=== PATIENT | female | born 1980 | race Caucasian/White ===

== ENCOUNTER 2024-03-24 13:07 | Emergency (ER) | payer OTHER, SELFPAY ==
[2024-03-24 13:13] VITALS: BP 151/98; PULSE 73; RESP 16; TEMP 37; O2SAT 99
--- NOTE | 2024-03-24 13:14 | ED.GENADULT ---
HPI - General Adult General Chief complaint: Dizziness Stated complaint: dizzy Time Seen by Provider: 03/24/24 13:15 Source: patient, RN notes reviewed and old records reviewed Mode of arrival: ambulatory Limitations: no limitations History of Present Illness HPI narrative: 44-year-old female presents to the [facility] with complaints of feeling dizzy, weak and chest tightness. States that started 11 30 when she was sitting at her desk at work. 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 States that she called her , was brought here. Patient had taken Xanax prior to arrival. Patient reports that most of her symptoms have resolved on exam denied any chest pain, shortness of breath. No longer feeling dizzy. Patient denied any nausea or vomiting. Denies any fevers. Denies any URI symptoms Patient with significant history of anxiety panic attacks Onset (ago): hour(s) (2) Related Data Home Medications Medication Instructions Recorded Confirmed alprazolam 0.5 mg tablet (Xanax) 0.5 mg PO QID 03/09/22 03/24/24 fluoxetine 60 mg tablet 60 mg PO DAILY 03/09/22 03/24/24 multivitamin (Daily Multi-Vitamin 1 tablet PO DAILY 03/09/22 03/24/24 tablet) zolpidem 10 mg tablet 10 mg PO QHS PRN Insomnia 03/09/22 03/24/24 brexpiprazole 1 mg tablet (Rexulti) 1 mg PO DAILY 03/24/24 03/24/24 Allergies Allergy/AdvReac Type Severity Reaction Status Date / Time cephalexin [From Keflex] AdvReac Intermediate Diarrhea Verified 03/24/24 13:09 trazodone AdvReac Intermediate Nausea Verified 03/24/24 13:09 tramadol AdvReac Intermediate Gastrointestinal Uncoded 03/24/24 13:09 Upset Review of Systems Review of Systems: All systems reviewed & are unremarkable except as noted in HPI and below Constitutional: Constitutional: Reports as per HPI Eyes: Eyes: Reports no additional eye complaints ENT: Reports system reviewed and no additional complaints, except as documented Cardiovascular: Cardiovascular: Reports no additional cardiovascular complaints, Denies chest pain and Denies dyspnea Respiratory: Respiratory: Reports no additional respiratory complaints, Denies chest congestion, Denies cough and Denies dyspnea Gastrointestinal: Gastrointestinal: Reports no additional gastrointestinal complaints, Denies abdominal pain, Denies nausea and Denies vomiting Musculoskeletal: Musculoskeletal: Reports no additional musculoskeletal complaints Integumentary/Breasts: Skin/Breast: Reports system reviewed and no additional complaints, except as docu Neurologic: Reports as per HPI Psychiatric: Psychiatric: Reports as per HPI Allergic/Immunologic: Allergic/Immunologic: Reports no additional allergic/immunologic complaints PMFSH Past Medical History Medical History Anxiety delivery delivered Thyroid disorder Surgical History Surgical History H/O cone biopsy of cervix H/O discectomy H/O: hysterectomy Family History Family History Mother Thyroid disorder Grandparent Heart disease Social History Social History Smoking status: Never smoker Alcohol intake: never Substance use: never Living arrangements: with family 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 There is no relevant family history pertinent to the patient complaint. Exam Const: General: cooperative, healthy appearing, comfortable, no acute distress, well developed, alert and well nourished Nutritional Appearance: well nourished Orientation/consciousness: patient oriented x3 Limitations: no limitations HE
--- NOTE | 2024-03-24 13:20 | ECG_ITS ---
Test Date: 2024-03-24 13:29:27 Measurements Intervals [place] Rate: 80 P: 48 DC: 153 QRS: -14 QRSD: 100 T: -11 QT: 372 QTc: 431 Interpretive Statements SINUS RHYTHM BORDERLINE R WAVE PROGRESSION, ANTERIOR LEADS BORDERLINE T WAVE ABNORMALITY- ANT/INF LEADS BASELINE ARTIFACT- I, II, III, AVR, AVL, AVF, V3 BORDERLINE ECG No previous ECG available for comparison Electronically Signed On 03-24-2024 13:47:13 CDT by Froilan Kaplan D.O.
[2024-03-24 13:29] LABS: Glucose Point of Care 95 mg/dl (65-105)
== END 2024-03-24 13:48 | disposition home or self-care (01) ==
PROVIDERS: Emergency Provider Nurse Practitioner; PCP Physician Assistant Medical
DX: F41.9 Anxiety disorder, unspecified (principal)
CPT/HCPCS: 82948; 93005; 99213; G0463

== ENCOUNTER 2024-06-26 14:51 | Emergency (ER) | payer OTHER, SELFPAY ==
[2024-06-26 15:04] VITALS: BP 134/87; PULSE 73; RESP 18; TEMP 36.3; O2SAT 99
--- NOTE | 2024-06-26 15:22 | ED_ITS ---
HPI - URI/Sore Throat General Chief Complaint: Upper Respiratory Infection Stated Complaint: [email or web address] symptoms Time Seen by Provider: 06/26/24 15:23 Source: patient, RN notes reviewed and old records reviewed Mode of arrival: ambulatory Limitations: no limitations History of Present Illness HPI Narrative: patient presents with complaints of fever, chills and body aches since yesterday. She does report that 2 days ago she had nausea and vomiting along with some diarrhea, but reports this has subsided and is no longer problematic. She denies any abdominal pain. She has been taking [id number] medications with poor relief. She voices no other concerns or complaints at this time Related Data Home Medications ?Medication ?Instructions ?Recorded ?Confirmed ?Last Taken ?Type alprazolam 0.5 mg tablet (Xanax) 0.5 mg PO QID 03/09/22 03/24/24 Unknown History fluoxetine 60 mg tablet 60 mg PO DAILY 03/09/22 03/24/24 Unknown History multivitamin (Daily Multi-Vitamin 1 tablet PO DAILY 03/09/22 03/24/24 Unknown History tablet) zolpidem 10 mg tablet 10 mg PO QHS PRN Insomnia 03/09/22 03/24/24 Unknown History brexpiprazole 1 mg tablet (Rexulti) 1 mg PO DAILY 03/24/24 03/24/24 Unknown History Allergies Allergy/AdvReac Type Severity Reaction Status Date / Time cephalexin (From Keflex) AdvReac Intermediate Diarrhea Verified 06/26/24 15:05 trazodone AdvReac Intermediate Nausea Verified 06/26/24 15:05 tramadol AdvReac Intermediate Gastrointestinal Uncoded 06/26/24 15:05 Upset Review of Systems Review of Systems: All systems reviewed & are unremarkable except as noted in HPI and below Constitutional: Constitutional: Reports as per HPI, Reports no additional constitutional complaints, Reports body ache(s), Reports chills, Reports excessive sweating and Reports fever(s) ENT: Reports system reviewed and no additional complaints, except as documented and Reports nasal congestion Cardiovascular: Cardiovascular: Reports no additional cardiovascular complaints Respiratory: Respiratory: Reports no additional respiratory complaints Gastrointestinal: Gastrointestinal: Reports no additional gastrointestinal complaints, Reports diarrhea (resolved), Reports nausea (resolved) and Reports vomiting (resolved) PMFSH Past Medical History Medical History Anxiety delivery delivered Thyroid disorder Surgical History Surgical History H/O: hysterectomy H/O cone biopsy of cervix H/O discectomy Family History Family History Mother Thyroid disorder Grandparent Heart disease Social History Social History Smoking status: Never smoker Alcohol intake: never Substance use: never Living arrangements: with family 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 There is no relevant family history pertinent to the patient complaint. Exam 2 Const: General: cooperative, no acute distress, alert and awake Orientation/consciousness: oriented to person, oriented to place and oriented to time HENMT: Head: normal to inspection Resp: Effort & Inspection: normal respiratory effort and able to speak in complete sentences Auscultation: clear to auscultation bilaterally, no crackles, no rales, no rhonchi and no wheezes Cardio: Palpation: normal PMI Rate: regular rate Rhythm: regular rhythm Heart sounds: S1 normal heart sound present and S2 normal heart sound present Neuro: General: oriented to person, oriented to place and oriented to time Cranial nerves: Yes CN's II-XII intact bilaterally Psych: Appearance: grossly normal Thought process: Normal thought process present Insight: Good insight present (Psych) Judgement: Good judgement present (Psych) Course Course Level of Care: Express Care Visit Vital Signs Vital signs: Vital Signs Temperature 97.4 F L 06/26/24 15:04 Pulse Rate 73 06/26/24 15:04 Respiratory Rate 18 06/26/24 15:04 Blood Pressure 134/87 06/26/24 15:04 Pulse Oximetry 99 06/26/24 15:04 Oxygen Delivery Room Air 06/26/24 15:04 Temperature 97.4 F L 06/26/24 15:04 Pulse Rate 73 06/26/24 15:04 Respiratory Rate 18 06/26/24 15:04 Blood Pressure 134/87 06/26/24 15:04 Pulse Oximetry 99 06/26/24 15:04 Oxygen Delivery Room Air 06/26/24 15:04 Reviewed MDM - URI/Sore Throat MDM Narrative Medical decision making narrative: negative COVID, negative flu. GI symptoms resolving. All other symptoms l ikely viral in origin. Symptomatic treatment discussed with patient. Work note provided. Discharge instructions reviewed with patient, as well as provided in writing per nursing staff. The instructions also include specific and strict return/GO TO THE ER as well as f/u information. All questions have been answered, and the patient deny any further questions with discharge and discharge plan. Some parts of this dictation were generated by voice recognition software and may contain typographical and/or grammatical inaccuracies. Differential Diagnosis Differential diagnosis: Likely upper respiratory infection, otitis media and viral infection Medical Records Attestation: I reviewed the patient's medical records. Lab Data Attestation: I reviewed the patient's lab results. Discharge Plan Discharge Clinical Impression: Viral infection Patient Disposition: Home, Self-Care Condition: Stable Instructions: Antibiotic Form, Viral Syndrome (ED) Additional Instructions: Plenty of rest and fluids. [id number] medicines per package instructions to treat your symptoms. Follow-up with primary care provider. Emergency department new or worse symptoms Patient Language: Sudanese Prescriptions: No Action Rexulti 1 mg tablet 1 mg PO DAILY zolpidem 10 mg tablet 10 mg PO QHS PRN (Reason: Insomnia) alprazolam [Xanax] 0.5 mg tablet 0.5 mg PO QID fluoxetine 60 mg tablet 60 mg PO DAILY multivitamin [Daily Multi-Vitamin] Tablet 1 tablet PO DAILY omeprazole 20 mg capsule,delayed release(DR/EC) 20 mg PO DAILY Qty: 90 1RF albuterol sulfate 90 mcg/actuation HFA aerosol inhaler 2 inh inhalation Q4H PRN (Reason: shortness of breath or wheezing) Qty: 8.5 0RF levothyroxine 100 mcg tablet See Rx Instructions .ROUTE .COMPLEX Qty: 90 1RF Dose Instruction: Take 1 tablet by mouth once daily Rx Instructions: Take 1 tablet by mouth once daily Follow-up/Referrals: Rachel Macias PA-C [Primary Care Provider] - 2 Weeks Stand Alone Forms: Work/School Release IP Time of Disposition: 15:38
[2024-06-26 15:24] LABS: EDCOVIDSCREEN Negative (Negative); EDINFLUASCREEN Negative (Negative); EDINFLUBSCREEN Negative (Negative)
== END 2024-06-26 15:40 | disposition home or self-care (01) ==
PROVIDERS: Emergency Provider Nurse Practitioner Family; PCP Physician Assistant Medical
DX: B34.9 Viral infection, unspecified (principal); Z20.822 Contact with and (suspected) exposure to COVID-19; F41.9 Anxiety disorder, unspecified
CPT/HCPCS: 87426; 87804; 99211; 99212; G0463

== ENCOUNTER 2024-11-28 11:43 | Emergency (ER) | payer OTHER, SELFPAY ==
--- OUTSIDE RECORDS SUMMARY | 2024-11-28 11:45 | XMS_ITS | Encounter Summary ---
Author Organization [facility] Address [address] [place] [address] Care Team Providers Care Personal Care Attendant Name Role Phone Unavailable Primary Care Provider Unavailabl e Encounter Details Date Type Department Care Team (Late st Contact Info) Description 11/16/2021 Lab Requisition [facility] [address] [place] [address] Izaiah Richter MD [address] [place] [address] Social History Tobacco Use Types Packs/Day Years Used Date Smoking Tobacco: Never Assessed Comments Unknown Sex and Gender Information Value Date Recorded Sex Assigned at Not on file Legal Sex Female 5:53 AM CDT Gender Identity Not on file Sexual Orientation Not on file documented as of this encounter Plan of Treatment Not on file documented as of this encounter Procedures Procedure Name Priority Date/Time Associated Diagnosis Comments DERMATOPATHOLOGY Routine 11/14/2021 12:0 0 AM CDT documented in this encounter Results * DERMATOPATHOLOGY (11/14/2021 12:00 AM CDT) Case Report Dermatopathology Report Case: [id number] Authorizing Provider: Izaiah Richter MD Collected: 11/14/2021 12:00 AM Ordering Location: [facility] Received: 11/16/2021 06:06 AM Pathologist: Romi Ordaz MD Specimen: Skin, right nasal tip 2 2:49 PM CDT DERMATOPATHOLOGY LABORATORY Final Diagnosis Specimen A. SKIN, right nasal tip: ANGIOFIBROMA (FIBROUS PAPULE) (D21.0) (see microscopic description) 2 2:49 PM CDT DERMATOPATHOLOGY LABORATORY at 1449 CDT Clinical History BCCA vs fibrous papule. Path # [id number]. 2 2:49 PM CDT DERMATOPATHOLOGY LABORATORY Gross Description Specimen A: Received is one formalin filled container labeled with the patient's name and designated right nasal tip. The specimen consists of a shave biopsy measuring [id number]. Jar 0. 2:49 PM CDT DERMATOPATHOLOGY LABORATORY Microscopic Description Specimen A. SKIN, right nasal tip: This dome-shaped lesion contains dilated blood vessels, coarse collagen bundles, and stellate fibroblasts. Additional deeper sections were obtained and reviewed. 2 2:49 PM CDT DERMATOPATHOLOGY LABORATORY Disclaimer An external and internal positive and negative controls are appropriate for the histochemical, immunohistochemical and immunofluorescence stain(s) in this case (if any), except where stated explicitly. The performance characteristics of the stain(s) cited in this report were developed and its performance characteristic determined by the Dermatopathology Laboratory at [facility], directed by Dr. Kwabena Rubi. These tests need not be, and therefore are not, approved by the [place] Food and Drug Administration. The tests are used for clinical purposes. Billing Codes Specimen Charges Stain Charges 33390 1 2 2:49 PM CDT DERMATOPATHOLOGY LABORATORY Embedded Images 2 2:49 PM CDT DERMATOPATHOLOGY LABORATORY Pathology/Cytolog y TISSUE SPECIMEN FROM SKIN / Unknown 11/14/2021 11/16/2021 6:06 AM CDT us Izaiah Richter MD LAB - PATHOLOGY/CYTOLOGY ORDER SHADY Final Result DERMATOPATHOLOGY LABORATORY [facility] - Department of Dermatology [address] [place] [address], [facility] [phone] documented in this encounter Visit Diagnoses Not on filedocumented in this encounter
--- OUTSIDE RECORDS SUMMARY | 2024-11-28 11:45 | XMS_ITS | Encounter Summary ---
Author Organization [facility] Address [address] [place] [address] Care Team Providers Care Insurance Producer Name Role Phone Rodger Lee MD Primary Care Provider Encounter Details Date Type Department Care Team (Late st Contact Info) Description 10/02/2008 Outpatient Historical [facility] Jarett Mcmahon MD 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 [id number] documented as of this encounter Procedures Procedure Name Priority Date/Time Associated Diagnosis Comments TYPE AND SCREEN Routine 10/02/2008 4:15 AM CDT HIV RAPID SCREEN Stat 10/02/2008 4:10 AM CDT CBC WITH DIFFERENTIAL Stat 10/02/2008 4:10 AM CDT documented in this encounter Results * TYPE AND SCREEN (10/02/2008 4:15 AM CDT) HISTORY CHECK No Historical ABO/Rh [facility] ABO/RH TYPE O Positive [facility] SPEC[facility]EN LIFE 3 days from drawdate [facility] ANTIBODY SCREEN Negative [facility] Blood specimen (specimen) 10/02/2008 4:15 AM CDT us Jarett Mcmahon MD BLOOD BANK ORDERABLES Israel bryan Performing Organization Address [facility] Phone Number INTERFACE SYSTEM Refer to clinic/hospital department [facility] CLIA# [id number] [address] [place] [address] * HIV RAPID SCREEN (10/02/2008 4:10 AM CDT) RAPID HIV SCREEN Nonreactive Nonreactive [facility] Comment:Results called to Oleg garza at 10/02/08 08:37 and read back verified. Blood specimen (specimen) 10/02/2008 4:10 AM CDT 10/02/2008 7:56 AM CDT Narrative INTERFACE SYSTEM - 10/02/2008 8:37 AM CDT blood in lab us Jarett Mcmahon MD CHEMISTRY ORDERABLES Radha l Result Performing Organization Address [facility] [[email or web address]] de Phone Number INTERFACE SYSTEM Refer to clinic/hospital department [facility] CLIA# [id number] [address] [place] [address] * (ABNORMAL) CBC WITH DIFFERENTIAL (10/02/2008 4:10 AM CDT) MCV 87.4 82.0 - 99.0 fL [facility] PLATELETS 170 140 - 350 K/uL [facility] HEMOGLOBIN 11.5(L) 11.8 - 14.8 g/dL [facility] RDW 14.1 11.5 - 14.5 % [facility] WBC 11.3(H) 4.0 - 9.8 K/uL [facility] MCH 29.0 27.2 - 32.6 pg [facility] MPV 11.8 9.3 - 12.4 fL [facility] HEMATOCRIT 34.7(L) 35.5 - 44.0 % [facility] RDW-STDEV 44.2 37.1 - 48.7 fL [facility] RBC 3.97 3.90 - 4.90 M/uL [facility] MCHC 33.1 31.5 - 35.5 % [facility] EOSINOPHILS 1 0 - 7 % [facility] EOSINOPHIL ABSOLUTE 0.06 0.00 - 0.70 K/uL [facility] LYMPHOCYTES 19 16 - 45 % [facility] LYMPHOCYTE ABSOLUTE 2.15 0.70 - 4.50 K/uL [facility] BASOPHILS 0 0 - 2 % [facility] BASOPHILS ABSOLUTE 0.02 0.00 - 0.20 K/uL [facility] MONOCYTES 5 3 - 13 % [facility] MONOCYTE ABSOLUTE 0.51 0.10 - 1.30 K/uL [facility] NEUTROPHILS 76(H) 45 - 70 % [facility] NEUTROPHIL ABSOLUTE 8.52(H) 1.90 - 7.00 K/uL [facility] Blood specimen (specimen) 10/02/2008 4:10 AM CDT 10/02/2008 4:23 AM CDT us Jarett Mcmahon MD HEMATOLOGY ORDERABLES Israel bryan INTERFACE SYSTEM Refer to clinic/hospital department [facility] CLIA# [id number] [address] [place] [address] documented in this encounter Visit Diagnoses Not on filedocumented in this encounter Care Teams Insurance Producer Relationship Specialty Start Date End Date Rodger Lee MD [address] [place] [phone] PCP - General Internal Medicine 06/15/16 documented as of this encounter
--- OUTSIDE RECORDS SUMMARY | 2024-11-28 11:45 | XMS_ITS | Encounter Summary ---
Author Organization [facility] Address [address] [place] [address] Care Team Providers Care Straightening Machine Feeder Name Role Phone Rodger Lee MD Primary Care Provider Encounter Details Date Type Department Care Team (Latest Contact Info) Description 08/12/2008 Outpatient Historical [facility] Jarett Mcmahon MD 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 [address] documented as of this encounter Procedures Procedure Name Priority Date/Time Associated Diagnosis Comments US BIOPHYSICAL PROF W NST Timed Study 09/08/2008 11:26 AM CDT US OB LTD 1 OR MORE FETUSES Timed Study 09/08/2008 11:26 AM CDT US OB LTD 1 OR MORE FETUSES Timed Study 08/12/2008 10:24 AM LEAD FURNACE OPERATOR documented in this encounter Results * US OB LTD 1 OR MORE FETUSES (09/08/2008 11:26 AM CDT) Anatomical Region Laterality Modality Pelvis Other Narrative 09/08/2008 11:26 AM CDT FINAL - Order Information Only Procedure Note Frank Delgado, MEREDITH - 07/13/2015 FINAL - Order Information Only us Jarett Mcmahon MD US ORDERABLES Final Res ult * US BIOPHYSICAL PROFILE (09/08/2008 11:26 AM CDT) Anatomical Region Laterality Modality Pelvis Other Narrative 09/08/2008 11:26 AM CDT FINAL - Order Information Only Procedure Note Frank Delgado, RN - 07/13/2015 FINAL - Order Information Only us Jarett Mcmahon MD US ORDERABLES Final Res ult * US OB LTD 1 OR MORE FETUSES (08/12/2008 10:24 AM LEAD FURNACE OPERATOR) Anatomical Region Laterality Modality Pelvis Other Narrative 08/12/2008 10:24 AM LEAD FURNACE OPERATOR Results in [employer] Procedure Note 12/31/2008 Results in [employer] us Jarett Mcmahon MD US ORDERABLES Final Res ult documented in this encounter Visit Diagnoses Diagnosis Other specified complication, antepartum(646.83) Other specified complication, antepartum Unspecified hypothyroidism documented in this encounter Care Teams Straightening Machine Feeder Relationship Specialty Start Date End Date Rodger Lee MD [address] [place] [phone] PCP - General Internal Medicine 06/15/16 documented as of this encounter
--- OUTSIDE RECORDS SUMMARY | 2024-11-28 11:45 | XMS_ITS | Encounter Summary ---
Author Organization [facility] Address [address] [place] [address] Care Team Providers Care Rivet Flunky Name Role Phone Rodger Croft MD Primary Care Provider [phone] Encounter Details Date Type Department Care Team (Late st Contact Info) Description 01/16/2009 Outpatient Historical [facility] Er, Authorized P NO ADDRESS ON FILE Gage Monk MD NO ADDRESS ON FILE Social History Tobacco Use Types Packs/Day Years Used Date Smoking Tobacco: Never Assessed Comments Unknown Sex and Gender Information Value Date Recorded Sex Assigned at Not on file Legal Sex Female 4:56 AM CLINICAL REHAB LIAISON Gender Identity Not on file Sexual Orientation Not on file documented as of this encounter Plan of Treatment Upcoming Encounters Date Type Department Care Team (Late st Contact Info) Description 01/14/2025 2:30 PM CDT 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 [address] documented as of this encounter Procedures Procedure Name Priority Date/Time Associated Diagnosis Comments XR CHEST PA AND LATERAL 2 VW Routine 01/16/2009 8:10 PM CDT XR CHEST PA AND LATERAL 2 VW Routine 01/16/2009 8:10 PM CDT XR CHEST PA AND LATERAL 2 VW Routine 01/16/2009 8:10 PM CDT BLOOD CULTURE Stat 01/16/2009 8:10 PM CDT BLOOD CULTURE Stat 01/16/2009 8:10 PM CDT ED HOLD Stat 01/16/2009 7:29 PM CDT CBC WITH DIFFERENTIAL Stat 01/16/2009 7:29 PM CDT C-REACTIVE PROTEIN Stat 01/16/2009 7: 29 PM CDT COMPREHENSIVE METABOLIC PANEL Stat 01/16/2009 7:29 PM CDT documented in this encounter Results * BLOOD CULTURE (01/16/2009 8:10 PM CDT) PRELIMINARY REPORT No growth to date. Culture in progress [facility] FINAL REPORT No growth 5 days [facility] Blood specimen (specimen) 01/16/2009 8:10 PM CDT 01/16/2009 8:15 PM CDT Narrative [facility] - 01/22/2009 12:02 PM CDT blood inlab Miki Sheffield MD MICROBIOLOGY - GENERAL ORDERABL ES Final Result [facility] CLIA# [id number] [address] [place] [address] * BLOOD CULTURE (01/16/2009 8:10 PM CDT) PRELIMINARY REPORT No growth to date. Culture in progress [facility] FINAL REPORT No growth 5 days [facility] Blood specimen (specimen) 01/16/2009 8:10 PM CDT 01/16/2009 8:15 PM CDT us Miki Sheffield MD MICROBIOLOGY - GENERAL ORDERABL ES Final Result [facility] CLIA# [id number] [address] [place] [address] * XR CHEST PA AND LATERAL (01/16/2009 8:10 PM CDT) Anatomical Region Laterality Modality Chest Other 01/16/2009 8:10 PM CDT Narrative 01/16/2009 9:22 PM CDT [facility] [address] [place], [place] [address] Admit Date: 01/16/2009 SELWYN DEE Sex: F Admit Prov: ER, AUTHORIZED P Date: 1980 Primary Care Prov: CROFT RODGER L CMRN: [id number] Room: ER-A N: [id number] IMAGING SERVICES Ordering Prov: N/A Accession Number: [id number] Interpretation TWO-VIEW CHEST, 01/16/2009 HISTORY: Fever, postoperative. FINDINGS: There are no comparison films. The lungs are fully inflated and clear. There are no effusions. The heart and mediastinum are within normal limits. IMPRESSION: Negative heart and lungs. . Dictated by: PRATIMA ROMERO 01/16/2009 20:19 Electronically signed by: PRATIMA ROMERO 01/16/2009 21:21 Transcribed: 01/16/2009 20:22 SJ Procedure Note Pratima Romero - 01/16/2009 [facility] [address] [place], [place] [address] Admit Date: 01/16/2009 SELWYN DEE Sex: F Admit Prov: ER, AUTHORIZED P Date: 1980 Primary Care Prov: LANG RODGER L CMRN: [id number] Room: ER-A SSN: [id number] IMAGING SERVICES Ordering Prov: N/A Interpretation TWO-VIEW CHEST, 01/16/2009 HISTORY: Fever, postoperative. FINDINGS: There are no comparison films. The lungs are fullyinflated and clear. There are no effusions. The heart and mediastinum are withinnormal limits. IMPRESSION: Negative heart and lungs. . Dictated by: PRATIMA ROMERO 01/16/2009 20:19 Electronically signed by: PRATIMA ROMERO 01/16/2009 21:21 Transcribed: 01/16/2009 20:22 SJ us Miki Sheffield MD DIAGNOSTIC IMAGING ORDERABLES F inal Result * XR CHEST PA AND LATERAL (01/16/2009 8:10 PM CDT) Anatomical Region Laterality Modality Chest Other 01/16/2009 8:10 PM CDT Impressions 01/16/2009 8:23 PM CDT : Negative heart and lungs. . PRELIMINARY REPORT - Pending Final Review Dictated by: PRATIMA ROMERO 01/16/2009 20:19 Transcribed: 01/16/2009 20:22 SJ Narrative 01/16/2009 8:23 PM CDT FINAL - Order Information Only [address] [address] Admit Date: 01/16/2009 SELWYN DEE Sex: F Admit Prov: ER, AUTHORIZED P Date: 1980 Primary Care Prov: RODGER CROFT CMRN: [id number] Room: ER-A SSN: [id number] IMAGING SERVICES Ordering Prov: N/A Accession Number: [id number] Interpretation TWO-VIEW CHEST, 01/16/2009 HISTORY: Fever, postoperative. FINDINGS: There are no comparison films. The lungs are fully inflated and clear. There are no effusions. The heart and mediastinum are within normal limits. Procedure Note Frank Delgado RN - 07/13/2015 FINAL - Order Information Only [address], [place] [address] Admit Date: 01/16/2009 SELWYN DEE Sex: F Admit Prov: ER, BABATUNDE P Date: 1980 Primary Care Prov: RODGER CROFT CMRN: [id number] Room: [facility] SSN: [id number] IMAGING SERVICES Ordering Prov: N/A Interpretation TWO-VIEW CHEST, 01/16/2009 HISTORY: Fever, postoperative. FINDINGS: There are no comparison films. The lungs are fullyinflated and clear. There are no effusions. The heart and mediastinum are withinnormal limits. IMPRESSION: Negative heart and lungs. . PRELIMINARY REPORT - Pending Final Review Dictated by: PRATIMA ROMERO 01/16/2009 20:19 Transcribed: 01/16/2009 20:22 SJ Miki Sheffield MD DIAGNOSTIC IMAGING ORDERABLES F inal Result * XR CHEST PA AND LATERAL (01/16/2009 8:10 PM CDT) Anatomical Region Laterality Modality Chest Other 01/16/2009 8:10 PM CDT Narrative 01/16/2009 8:17 PM CDT FINAL - Order Information Only Procedure Note Frank Delgado, RN - 07/13/2015 FINAL - Order Information Only Miki Sheffield MD DIAGNOSTIC IMAGING ORDERABLES F inal Result * (ABNORMAL) C-REACTIVE PROTEIN (01/16/2009 7:29 PM CDT) CRP 3.1(H) 0.0 - 0.8 mg/dL [facility] 01/16/2009 7:29 PM CDT 01/16/2009 8:18 PM CDT Narrative [facility] - 01/16/2009 8:44 PM CDT blood in lab Miki Sheffield MD CHEMISTRY ORDERABLES Final Resu lt [facility] CLIA# [id number] [address] [place] [place] [address] * COMPREHENSIVE METABOLIC PANEL (01/16/2009 7:29 PM CDT) CALCIUM 9.1 8.6 - 10.2 mg/dL [facility] ALBUMIN 4.3 3.4 - 4.8 g/dL [facility] CHLORIDE 103 96 - 108 mmol/L [facility] CREATININE 0.83 0.51 - 0.95 mg/dL [facility] ALT 20 0 - 31 U/L [facility] SODIUM 141 135 - 145 mmol/L [facility] ALKALINE PHOSPHATASE 57 35 - 104 U/L [facility] CO2 27 22 - 30 mmol/L [facility] BILIRUBIN TOTAL 0.5 0.2 - 1.0 mg/dL [facility] POTASSIUM 4.0 3.5 - 4.9 mmol/L [facility] TOTAL PROTEIN 7.6 6.3 - 8.6 g/dL [facility] GLUCOSE 87 65 - 99 mg/dL [facility] AST 19 12 - 32 U/L [facility] BUN 10 6 - 20 mg/dL [facility] GFR, >60 >=60 mL/min/1.7 sq meter [facility] GFR >60 >=60 mL/min/1.7 sq meter [facility] Comment: Modification of Diet in Renal Disease (MDRD) study formula. Estimated GFR rate interpretative information for both Americans and non- Americans is available on the [facility] Intranet at: [email or web address] Select: Lab Policies and Procedures Select: Reference Ranges - GFR 01/16/2009 7:29 PM CDT 01/16/2009 7:47 PM CDT us Miki Sheffield MD CHEMISTRY ORDERABLES Edited [facility] CLIA# [id number] [address] [place] [address] * (ABNORMAL) CBC WITH DIFFERENTIAL (01/16/2009 7:29 PM CDT) WBC 7.1 4.0 - 9.8 K/uL [facility] MCH 28.3 27.2 - 32.6 pg [facility] MPV 11.4 9.3 - 12.4 fL [facility] HEMATOCRIT 33.7(L) 35.5 - 44.0 % [facility] RDW-STDEV 39.9 37.1 - 48.7 fL [facility] RBC 4.00 3.90 - 4.90 M/uL [facility] MCHC 33.5 31.5 - 35.5 % [facility] MCV 84.3 82.0 - 99.0 fL [facility] PLATELETS 237 140 - 350 K/uL [facility] HEMOGLOBIN 11.3(L) 11.8 - 14.8 g/dL [facility] RDW 13.2 11.5 - 14.5 % [facility] LYMPHOCYTES 25 16 - 45 % [facility] LYMPHOCYTE ABSOLUTE 1.81 0.70 - 4.50 K/uL [facility] BASOPHILS 0 0 - 2 % [facility] BASOPHILS ABSOLUTE 0.02 0.00 - 0.20 K/uL [facility] MONOCYTES 5 3 - 13 % [facility] MONOCYTE ABSOLUTE 0.33 0.10 - 1.30 K/uL [facility] NEUTROPHILS 68 45 - 70 % [facility] NEUTROPHIL ABSOLUTE 4.84 1.90 - 7.00 K/uL [facility] EOSINOPHILS 2 0 - 7 % [facility] EOSINOPHIL ABSOLUTE 0.13 0.00 - 0.70 K/uL [facility] 01/16/2009 7:29 PM CDT 01/16/2009 7:47 PM CDT Miki Sheffield MD HEMATOLOGY ORDERABLES Edited Performing Organization Address [facility]/ZIP Co de Phone Number [facility] CLIA# [id number] [address] [place] [address] * ED HOLD (01/16/2009 7:29 PM CDT) SPECIMEN HOLD, BLOOD 7 days [facility] Blood specimen (specimen) 01/16/2009 7:29 PM CDT 01/16/2009 7:47 PM CDT us Miki Sheffield MD CHEMISTRY ORDERABLES Final Resu lt Performing Organization Address [facility] Co de Phone Number [facility] CLIA# [id number] [address] [place] [address] documented in this encounter Visit Diagnoses Not on filedocumented in this encounter Care Teams Rivet Flunky Relationship Specialty Start Date End Date Rodger Croft MD [address] [place], [place] [id number] PCP - General Internal Medicine 06/15/16 documented as of this encounter
--- OUTSIDE RECORDS SUMMARY | 2024-11-28 11:45 | XMS_ITS | Clinical Summary ---
Author Organization [facility] Address [address] [place] [address] Care Team Providers Care Mental Health Assistant Name Role Phone Unavailable Primary Care Provider Unavailabl e Source Comments [facility],non-owned Affiliates and Associated Physician Practices is amultiple site organization consisting of ambulatory clinics and hospital sitesin [place], [place], [place] and [place]. This disclosure is being madepursuant to the Care Everywhere program and may not contain all information available regarding this patient. Last updated 18.[facility] Social History Tobacco Use Types Packs/Day Years Used Date Smoking Tobacco: Never Assessed Comments Unknown Sex and Gender Information Value Date Recorded Sex Assigned at Not on file Legal Sex Female 5:53 AM CDT Gender Identity Not on file Sexual Orientation Not on file Plan of Treatment Health Maintenance Due Date Last Done Comments LIPID TESTING 1980 MAMMOGRAM 1980 HIV SCREENING 02/10/1995 HEPATITIS C SCREENING 02/06/1998 DTAP/TDAP/TD VACCINES (1 - Tdap) 02/10/1999 HEPATITIS B VACCINE (1 of 3 - 19+ 3-dose series) 02/10/1999 COVID-19 VACCINE ( - 2023-2 5 season) 2024 DEPRESSION SCREENING 06/25/2024 INFLUENZA VACCINE (Season Ended) 2025 ZOSTER VACCINE (1 of 2) 02/10/2030 HIB VACCINE Aged Out No longer eligi ble based on patient's age to complete this topic HPV VACCINE Aged Out No longer eligi ble based on patient's age to complete this topic MENINGOCOCCAL (Group B) VACC INE SHARED DECISION-MAKING Aged Out No longer eligibl e based on patient's age to complete this topic MENINGOCOCCAL GROUPS A/C/Y/W VACCINE Aged Out No longer eligible b ased on patient's age to complete this topic PNEUMOCOCCAL VACCINE Aged Out No long er eligible based on patient's age to complete this topic Insurance
--- OUTSIDE RECORDS SUMMARY | 2024-11-28 11:45 | XMS_ITS | Encounter Summary ---
Author Organization [facility] Address 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 [address] documented as of this encounter Procedures Procedure Name Priority Date/Time Associated Diagnosis Comments URINALYSIS WITH REFLEX CULTURE Routine 06/19/2005 10:57 PM ENVIRONMENTAL SAFETY SPECIALIST CBC WITH DIFFERENTIAL Routine 06/19/2005 10:57 PM ENVIRONMENTAL SAFETY SPECIALIST CBC WITH DIFFERENTIAL Routine 06/19/2005 10:57 PM ENVIRONMENTAL SAFETY SPECIALIST URINALYSIS W/REFLEX MICROSCOPIC Routine 06/19/2005 10:57 PM ENVIRONMENTAL SAFETY SPECIALIST URIC ACID Routine 06/19/2005 10:57 PM ENVIRONMENTAL SAFETY SPECIALIST AST Routine 06/19/2005 10:57 PM ENVIRONMENTAL SAFETY SPECIALIST LACTATE DEHYDROGENASE Routine 06/19/2005 10:57 PM ENVIRONMENTAL SAFETY SPECIALIST documented in this encounter Results * (ABNORMAL) URINALYSIS (06/19/2005 10:57 PM ENVIRONMENTAL SAFETY SPECIALIST) COLOR UA Yellow INTERFACE SYSTEM CLARITY UA Slt. Cloudy(A) Clear INTERFACE SYSTEM SPECIFIC GRAVITY UA 1.010 1.001 - 1.035 INTERFACE SYSTEM PH UA 7.0 5.0 - 8.0 INTERFACE SYSTEM LEUKOCYTE ESTERASE UA 3+(A) Negative INTERFACE SYSTEM NITRITE UA Negative Negative INTERFACE SYSTEM PROTEIN UA Negative Negative INTERFACE SYSTEM GLUCOSE UA Negative Negative INTERFACE SYSTEM KETONES UA Negative Negative INTERFACE SYSTEM UROBILINOGEN UA <1 <=1 mg/dL INTE RFACE SYSTEM BILIRUBIN UA Negative Negative INTERFA CE SYSTEM BLOOD UA Negative Negative INTERFACE SYSTEM WBC UA 12(H) 0 - 5 /HPF INTERFACE SYSTEM RBC UA 1 0 - 4 /HPF INTERFACE SYSTEM EPITHELIAL CELLS, URINE Many /HPF INTERFACE SYSTEM 06/19/2005 10:5 7 PM ENVIRONMENTAL SAFETY SPECIALIST us Renata Andre MD URINE ORDERABLES Final R esult INTERFACE SYSTEM Refer to clinic/hospital department * URINALYSIS WITH REFLEX CULTURE (06/19/2005 10:57 PM ENVIRONMENTAL SAFETY SPECIALIST) URINE CULTURE ORDER Culture ordered INTERFACE SYSTEM Comment: Criteria for a reflex culture include one or more of the following: Abn ormal nitrite, leukocyte esterase, WBCs or RBCs. Lack of qualifying criteria does not exclude the possiblity of a urinary tract infection. Dilute urine, drug interference, etc. may decrease the sensitivity of the criteria analytes. 06/19/2005 10:5 7 PM ENVIRONMENTAL SAFETY SPECIALIST Renata Andre MD URINE ORDERABLES Final R esult Performing Organization Address City/[facility] Co de Phone Number INTERFACE SYSTEM Refer to clinic/hospital department * (ABNORMAL) CBC WITH DIFFERENTIAL (06/19/2005 10:57 PM ENVIRONMENTAL SAFETY SPECIALIST) NEUTROPHILS 74(H) 45 - 70 % INTERFAC E SYSTEM LYMPHOCYTES 22 16 - 45 % INTERFAC E SYSTEM MONOCYTES 4 3 - 13 % INTERFACE SYSTEM EOSINOPHILS 1 0 - 7 % INTERFAC E SYSTEM BASOPHILS 0 0 - 2 % INTERFACE SYSTEM NEUTROPHIL ABSOLUTE 9.11(H) 1.90 - 7.00 K/uL INTERFACE SYSTEM LYMPHOCYTE ABSOLUTE 2.66 0.70 - 4.50 K/uL INTERFACE SYSTEM MONOCYTE ABSOLUTE 0.46 0.10 - 1.30 K/uL INTERFACE SYSTEM EOSINOPHIL ABSOLUTE 0.06 0.00 - 0.70 K/uL INTERFACE SYSTEM BASOPHILS ABSOLUTE 0.02 0.00 - 0.20 K/uL INTERFACE SYSTEM 06/19/2005 10:5 7 PM ENVIRONMENTAL SAFETY SPECIALIST Renata Andre MD HEMATOLOGY ORDERABLES Fi nal Result Performing Organization Address [facility] de Phone Number INTERFACE SYSTEM Refer to clinic/hospital department * (ABNORMAL) CBC WITH DIFFERENTIAL (06/19/2005 10:57 PM ENVIRONMENTAL SAFETY SPECIALIST) WBC 12.3(H) 4.0 - 9.8 K/uL INTERFACE SYSTEM RBC 3.95 3.90 - 4.90 M/uL INTERFACE SYSTEM HEMOGLOBIN 11.5(L) 11.8 - 14.8 g/dL INTERFACE SYSTEM HEMATOCRIT 34.7(L) 35.5 - 44.0 % INTERFACE SYSTEM MCV 87.8 82.0 - 99.0 fL INTERFACE SYSTEM MCH 29.1 27.2 - 32.6 pg INTERFACE SYSTEM MCHC 33.1 31.5 - 35.5 % INTERFACE SYSTEM RDW 14.2 11.5 - 14.5 % INTERFACE SYSTEM RDW-STDEV 45.6 37.1 - 48.7 fL INTERFACE SYSTEM PLATELETS 194 140 - 350 K/uL INTERFACE SYSTEM MPV 12.0 9.3 - 12.4 fL INTERFACE SYSTEM 06/19/2005 10:5 7 PM ENVIRONMENTAL SAFETY SPECIALIST Renata Andre MD HEMATOLOGY ORDERABLES Fi nal Result INTERFACE SYSTEM Refer to clinic/hospital department * AST (06/19/2005 10:57 PM ENVIRONMENTAL SAFETY SPECIALIST) AST 17 12 - 32 U/L INTERFAC E SYSTEM 06/19/2005 10:5 7 PM ENVIRONMENTAL SAFETY SPECIALIST us Renata Andre MD CHEMISTRY ORDERABLES Fin al Result Performing Organization Address City/[facility] Co de Phone Number INTERFACE SYSTEM Refer to clinic/hospital department * LACTATE DEHYDROGENASE (06/19/2005 10:57 PM ENVIRONMENTAL SAFETY SPECIALIST) LD (LACTATE DEHYDROGENASE) 196 135 - 214 U/L INTERFACE SYSTEM 06/19/2005 10:5 7 PM ENVIRONMENTAL SAFETY SPECIALIST Renata Andre MD CHEMISTRY ORDERABLES Fin al Result Performing Organization Address City/[facility] Co de Phone Number INTERFACE SYSTEM Refer to clinic/hospital department * URIC ACID (06/19/2005 10:57 PM ENVIRONMENTAL SAFETY SPECIALIST) URIC ACID 5.6 2.3 - 6.6 mg/dL INTERFACE SYSTEM 06/19/2005 10:5 7 PM ENVIRONMENTAL SAFETY SPECIALIST Renata Andre MD CHEMISTRY ORDERABLES Fin al Result Performing Organization Address City/[facility] Co de Phone Number INTERFACE SYSTEM Refer to clinic/hospital department documented in this encounter Visit Diagnoses Diagnosis Other current maternal conditions classifiable elsewhere, antepartum- Primary documented in this encounter Care Teams Cooling Pipe Inspector Relationship Specialty Start Date End Date Rodger Lee MD [address] [place] [phone] PCP - General Internal Medicine 06/15/16 documented as of this encounter
--- OUTSIDE RECORDS SUMMARY | 2024-11-28 11:45 | XMS_ITS | Clinical Summary ---
Author Organization [email or web address] 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 Active FLUoxetine (PROzac) 20 mg capsule 8 Active zolpidem (AMBIEN) 10 mg tablet TAKE 1 TABLET BY MOUTH EVERY NIGHT AT BEDTIME NEEDED FOR INSOMNIA Active ALPRAZolam (XANAX) 1 mg tablet TAKE 1 TABLET BY MOUTH 4 TIMES DAILY NEEDED FOR ANXIETY Active omeprazole (PriLOSEC) 20 mg Capsule, Delayed Release(E.C.) Take 20 mg by mouth daily. 3 Active multivitamin (DAILY-RANJAN) tablet Take 1 Tablet by mouth daily. Active oxyCODONE (ROXICODONE) 5 mg tabletIndications:E ndometriosis Take 1 Tablet (5 mg) by mouth every 4 hours as needed for Pain, Severe. Max Daily Amount: 30 mg 20 Tablet 4 Active Rexulti 1 mg Tablet 04/01/20 2 4 Active cyclobenzaprine (FLEXERIL) 10 mg tablet Take 1 Tablet (10 mg) by mouth 3 times daily as needed for Spasm or Pain. 30 Tablet 1 Active Active Problems Problem Noted Date Diagnosed Date Mixed incontinence 09/12/2023 Resolved Problems Problem Noted Date Diagnosed Date Resolved Date History of cervical cancer 06/21/2017 0 08/01/2021 Encounters Date Type Department Care Team Description 11/25/2024 External Device Data ST[facility] ABSTRACTION Provider, Abstract 11/13/2024 External Device Data [facility] ABSTRACTION Provider, Abstract 11/12/2024 External Device Data [facility] ABSTRACTION Provider, Abstract 11/11/2024 External Device Data [facility] ABSTRACTION Provider, Abstract 09/10/2024 External Device Data [facility] ABSTRACTION Provider, Abstract 09/02/2024 External Device Data [facility] ABSTRACTION Provider, Abstract 09/02/2024 External Device Data [facility] ABSTRACTION Provider, Abstract 08/30/2024 External Device Data [facility] ABSTRACTION Provider, Abstract 08/29/2024 External Device Data [facility] ABSTRACTION Provider, Abstract from Last 3 Months Family History Medical History Relation Name Comments Healthy Daughter Healthy Father Healthy Mother Healthy Sister Relation Name Status Comments Daughter Alive 2 daughters Father Alive Mother Alive Sister Alive 2 sisters Social History Tobacco Use Types Packs/Day Years Used Date Smoking Tobacco: Never Smokeless Tobacco: Never Tobacco Cessation:Counseling Given: Not Answered Alcohol Use Standard Drinks/Week Comments Yes 0 (1 standard drink = 0.6 oz pur e alcohol) socially Food Insecurity Answer Date Recorded Social/Environmental Concerns No concerns Transportation Needs Answer Date Record ed Social/Environmental Concerns No concerns Housing Stability Answer Date Recorded Social/Environmental Concerns No concerns Utility Needs Answer Date Recorded Social/Environmental Concerns No concerns Comments No Sex and Gender Information Value Date Recorded Sex Assigned at Not on file Legal Sex Female 4:56 AM NETWORK STRATEGIST Gender Identity Not on file Sexual Orientation Not on file Last Filed Vital Signs Vital Sign Reading Time Taken Comments Blood Pressure 134/90 04/14/2024 9:53 AM CDT Pulse 77 08/14/2023 3:26 PM NETWORK STRATEGIST Temperature 36.6 C (97.8 F) 08/14/2023 3:26 PM NETWORK STRATEGIST Respiratory Rate 12 08/14/2023 3:26 PM NETWORK STRATEGIST Oxygen Saturation 93% 08/14/2023 3:26 PM NETWORK STRATEGIST Inhaled Oxygen Concentration - - Weight 107.5 kg (237 lb) 04/14/2024 9:53 AM CDT Height 172.7 cm (5' 8) 04/14/2024 9:53 AM CDT Body Mass Index 36.04 04/14/2024 9:53 AM CDT Plan of Treatment Upcoming Encounters Date Type Department Care Team (Late st Contact Info) Description 01/14/2025 2:30 PM CDT Office Visit [facility] TRIAL EXAMINER - [address] [address] Jarett Mcmahon MD [address] [id number] Health Maintenance Due Date Last Done Comments Pre-Diabetes and Diabetes Screening 1980 DTAP/TDAP/TD VACCINES (1 - Tdap) 02/10/1999 HEPATITIS B VACCINES (1 of 3 - 19+ 3-dose series) 02/10/1999 BREAST CANCER SCREENING 08/11/2025 08/11/19 25, 12/05/2022, 10/10/2021, Additional history exists INFLUENZA VACCINE Completed 03/28/2024, , 05/15/2022, Additional history exists HPV VACCINES Aged Out No longer eligi ble based on patient's age to complete this topic Medical Devices Implanted Type Area Gun Sealing Machine Operator Device Identifier Shelf Expiration Date Model / Serial / Lot Barrier Interceed Adh 3x4in 4350 - [id number] Implanted:Qt y: 1 on 08/14/2023 by Yaw Mendez MD at [facility] Adhesion Barrier N/A: Abdomen [employer] [id number] 08/23/2027 [id number] / / [id number] Procedures Procedure Name Priority Date/Time Associated Diagnosis Comments MAMMO 3D SUSHANT SCREEN BILAT W OR WO CAD Routine 08/11/2024 11:28 AM NETWORK STRATEGIST Breast cancer screening by mammogram from Last 3 Months or Most Recently Relevant to Health Maintenance Results * MAMMO 3D SUSHANT SCREEN BILAT W OR WO CAD (08/11/2024 11:28 AM NETWORK STRATEGIST) Anatomical Region Laterality Modality Breast Bilateral Mammography 08/11/2024 11:2 8 AM NETWORK STRATEGIST Impressions 08/11/2024 11:33 AM NETWORK STRATEGIST IMPRESSION: Negative. RECOMMENDATIONS: Bilateral annual screening mammogram OVERALL FINAL ASSESSMENT: BI-RADS CATEGORY 1 - Negative DICTATION LOCATION: [facility] 08/11/2024 11:33 AM NETWORK STRATEGIST BILATERAL SCREENING DIGITAL MAMMOGRAMS WITH COMPUTER ASSISTED DIAGNOSIS WITH TOMOGRAPHY DATE: 08/11/2024 11:28 AM HISTORY: Routine screening mammogram. . COMPARISON: 12/05/2022 and 10/10/2021. TECHNIQUE: A bilateral screening mammogram was performed. Low-dose full-field digital breast tomosynthesis examination was performed with 2D and 3D acquisitions. Examination is read in conjunction with computer aided detection. BREAST COMPOSITION: Scattered fibroglandular densities. FINDINGS: No new masses, suspicious calcifications or areas of asymmetry or distortion are identified. The images were reviewed using the CAD system. us Jarett Mcmahon MD MAMMO ORDERABLES Final Re sult from Last 3 Months or Most Recently Relevant to Health Maintenance Insurance NA CHOICE FUND OA PLUS RX [employer] RX Member Subscriber Plan / Payer (Ef fective 2023-Present) Name:Selwyn Dee Relation to Subscriber:Spouse Subscriber ID:Not on file Payer ID:Not on file Type:RX Commercial Address: ANNE [place]IE [place] RX ROWE PLANS (INTERNAL) [facility] Internal Plans Advance Directives For more information, please contact: [phone] * Full Code (Latest Code Status on File) Date Activated Date Inactivated Comments 08/14/2023 12:17 PM 08/14/2023 5:41 PM * Full Code Date Activated Date Inactivated Comments 08/14/2023 9:00 AM 08/14/2023 12:16 PM Care Teams Synthetic Resin Operator Relationship Specialty Start Date End Date Rodger Lee MD [address] [place] [phone] PCP - General Internal Medicine 06/15/16
--- OUTSIDE RECORDS SUMMARY | 2024-11-28 11:45 | XMS_ITS | Encounter Summary ---
Author Organization [facility] Address [address] [place] [address] Care Team Providers Care Drum Printer Name Role Phone Rodger Lee MD Primary Care Provider [phone] Encounter Details Date Type Department Care Team (Latest Contact Info) Description 09/13/2008 Outpatient Historical [facility] Jarett Mcmahon MD 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 [address] documented as of this encounter Procedures Procedure Name Priority Date/Time Associated Diagnosis Comments US BIOPHYSICAL PROF WO NST Timed Study 09/29/2008 10:57 AM CDT US BIOPHYSICAL PROF WO NST Timed Study 09/22/2008 10:58 AM CDT US BIOPHYSICAL PROF WO NST Timed Study 09/15/2008 9:47 AM CDT documented in this encounter Results * US BIOPHYSICAL PROF WO NST (09/29/2008 10:57 AM CDT) Anatomical Region Laterality Modality Pelvis Other Narrative 09/29/2008 10:57 AM CDT FINAL - Order Information Only Procedure Note Frank Delgado RN - 07/13/2015 FINAL - Order Information Only us Jarett Mcmahon MD US ORDERABLES Final Res ult * US BIOPHYSICAL PROF WO NST (09/22/2008 10:58 AM CDT) Anatomical Region Laterality Modality Pelvis Other Narrative 09/22/2008 10:58 AM CDT FINAL - Order Information Only Procedure Note Frank Delgado, RN - 07/13/2015 FINAL - Order Information Only Jarett Mcmahon MD US ORDERABLES Final Res ult * US BIOPHYSICAL PROF WO NST (09/15/2008 9:47 AM CDT) Anatomical Region Laterality Modality Pelvis Other Narrative 09/15/2008 9:47 AM CDT FINAL - Order Information Only Procedure Note Frank Delgado, RN - 07/13/2015 FINAL - Order Information Only us Jarett Mcmahon MD US ORDERABLES Final Res ult documented in this encounter Visit Diagnoses Diagnosis Other specified complication, antepartum(646.83) Other specified complication, antepartum documented in this encounter Care Teams Drum Printer Relationship Specialty Start Date End Date Rodger Lee MD [address] [place] [phone] PCP - General Internal Medicine 06/15/16 documented as of this encounter
--- OUTSIDE RECORDS SUMMARY | 2024-11-28 11:45 | XMS_ITS | Encounter Summary ---
Author Organization [facility] Address [address] [place] [address] Care Team Providers Care Director Of Elementary Education Name Role Phone Rodger Lee MD Primary Care Provider [phone] Encounter Details Date Type Department Care Team (Late st Contact Info) Description 01/12/2009 Outpatient Historical [facility], Authorized P NO ADDRESS ON FILE Gage Monk MD NO ADDRESS ON FILE Social History Tobacco Use Types Packs/Day Years Used Date Smoking Tobacco: Never Assessed Comments Unknown Sex and Gender Information Value Date Recorded Sex Assigned at Not on file Legal Sex Female 4:56 AM MAT TESTER Gender Identity Not on file Sexual Orientation Not on file documented as of this encounter Plan of Treatment Upcoming Encounters Date Type Department Care Team (Late st Contact Info) Description 01/14/2025 2:30 PM CDT Office Visit [facility] NET SOFTWARE ARCHITECT - [address] [phone] Jarett Mcmahon MD [address] [address] documented as of this encounter Procedures Procedure Name Priority Date/Time Associated Diagnosis Comments CBC WITH DIFFERENTIAL Stat 01/12/2009 4:12 AM CDT C-REACTIVE PROTEIN Stat 01/12/2009 4: 12 AM CDT COMPREHENSIVE METABOLIC PANEL Stat 01/12/2009 4:12 AM CDT documented in this encounter Results * CBC WITH DIFFERENTIAL (01/12/2009 4:12 AM CDT) RBC 4.69 3.90 - 4.90 M/uL [facility] MCHC 33.8 31.5 - 35.5 % [facility] MCV 83.2 82.0 - 99.0 fL [facility] PLATELETS 242 140 - 350 K/uL [facility] HEMOGLOBIN 13.2 11.8 - 14.8 g/dL [facility] RDW 13.3 11.5 - 14.5 % [facility] WBC 7.0 4.0 - 9.8 K/uL [facility] MCH 28.1 27.2 - 32.6 pg [facility] MPV 11.6 9.3 - 12.4 fL [facility] HEMATOCRIT 39.0 35.5 - 44.0 % [facility] RDW-STDEV 39.8 37.1 - 48.7 fL [facility] NEUTROPHILS 69 45 - 70 % [facility] NEUTROPHIL ABSOLUTE 4.81 1.90 - 7.00 K/uL [facility] EOSINOPHILS 1 0 - 7 % [facility] EOSINOPHIL ABSOLUTE 0.04 0.00 - 0.70 K/uL [facility] LYMPHOCYTES 25 16 - 45 % [facility] LYMPHOCYTE ABSOLUTE 1.72 0.70 - 4.50 K/uL [facility] BASOPHILS 0 0 - 2 % [facility] BASOPHILS ABSOLUTE 0.03 0.00 - 0.20 K/uL [facility] MONOCYTES 6 3 - 13 % [facility] MONOCYTE ABSOLUTE 0.39 0.10 - 1.30 K/uL [facility] 01/12/2009 4:12 AM CDT 01/12/2009 4:35 AM CDT Gage Monk MD HEMATOLOGY ORDERABLES E dited Performing Organization Address [facility] de Phone Number INTERFACE SYSTEM Refer to clinic/hospital department [facility] CLIA# [id number] [address] [place] [address] * C-REACTIVE PROTEIN (01/12/2009 4:12 AM CDT) CRP 0.7 0.0 - 0.8 mg/dL [facility] 01/12/2009 4:12 AM CDT 01/12/2009 4:35 AM CDT Result [facility] Gage Monk MD CHEMISTRY ORDERABLES Fi nal Result Performing Organization Address [facility] Phone Number INTERFACE SYSTEM Refer to clinic/hospital department [facility] CLIA# [id number] [address] [place] [address] * (ABNORMAL) COMPREHENSIVE METABOLIC PANEL (01/12/2009 4:12 AM CDT) CALCIUM 9.4 8.6 - 10.2 mg/dL [facility] CHLORIDE 100 96 - 108 mmol/L [facility] ALBUMIN 4.6 3.4 - 4.8 g/dL [facility] CREATININE 0.83 0.51 - 0.95 mg/dL [facility] SODIUM 136 135 - 145 mmol/L [facility] ALT 22 0 - 31 U/L [facility] ALKALINE PHOSPHATASE 63 35 - 104 U/L [facility] BILIRUBIN TOTAL 1.1(H) 0.2 - 1.0 mg/dL [facility] CO2 25 22 - 30 mmol/L [facility] TOTAL PROTEIN 8.0 6.3 - 8.6 g/dL [facility] POTASSIUM 3.2(L) 3.5 - 4.9 mmol/L [facility] GLUCOSE 99 65 - 99 mg/dL [facility] AST 19 12 - 32 U/L [facility] BUN 11 6 - 20 mg/dL [facility] GFR, >60 >=60 mL/min/1. 7 sq meter [facility] GFR >60 >=60 mL/min/1. 7 sq meter [facility] Comment: Modification of Diet in Renal Disease (MDRD) study formula. Estimated GFR rate interpretative information for both Americans and non- Americans is available on the [facility] Intranet at: [email or web address] Select: Lab Policies and Procedures Select: Reference Ranges - GFR 01/12/2009 4:12 AM CDT 01/12/2009 4:35 AM CDT Gage Monk MD CHEMISTRY ORDERABLES Ed ited INTERFACE SYSTEM Refer to clinic/hospital department [facility] CLIA# [id number] [address] [place] [address] documented in this encounter Visit Diagnoses Not on filedocumented in this encounter Care Teams Director Of Elementary Education Relationship Specialty Start Date End Date Rodger Lee MD [address] [place] [address] [place] [phone] PCP - General Internal Medicine 06/15/16 documented as of this encounter
--- OUTSIDE RECORDS SUMMARY | 2024-11-28 11:45 | XMS_ITS | Encounter Summary ---
Author Organization [facility] Address [address] [place] [address] Care Team Providers Care Extern Name Role Phone Rodger Lee MD Primary Care Provider [phone] Encounter Details Date Type Department Care Team (Late st Contact Info) Description 11/23/2008 Outpatient Historical [facility] Yazan Mcmahon MD [address] [address] Social History Tobacco Use Types Packs/Day Years Used Date Smoking Tobacco: Never Assessed Comments Unknown Sex and Gender Information Value Date Recorded Sex Assigned at Not on file Legal Sex Female 4:56 AM DICE SPOTTER Gender Identity Not on file Sexual Orientation Not on file documented as of this encounter Plan of Treatment Upcoming Encounters Date Type Department Care Team (Late st Contact Info) Description 01/14/2025 2:30 PM CDT Office Visit [facility] FLORAL ARRANGER [address] [phone] Yazan Mcmahon MD [address] [address] documented as of this encounter Procedures Procedure Name Priority Date/Time Associated Diagnosis Comments PATHOLOGY Routine 11/24/2008 11:21 AM CDT POC , URINE Routine 11/24/2008 9:20 AM CDT HEMOGLOBIN AND HEMATOCRIT Stat 11/24/2008 8:32 AM CDT documented in this encounter Results * PATHOLOGY (11/24/2008 11:21 AM CDT) FINAL REPORT [facility] [address] [place], [place] [address] Patient: SELWYN DEE : 1980 Procedure Date: 11/24/2008 Accession Date: 11/24/2008 Case No: [id number] Ordering Dr: YAZAN GALVAN Case types AW, BW, FW, NW and SH are performed by [facility], [place], [place] SURGICAL PATHOLOGY & NON-GYNECOLOGIC CYTOPATHOLOGY REPORT DIAGNOSIS UTERUS, CERVIX, CONIZATION: - ADENOCARCINOMA IN SITU, FOCAL. - CHRONIC INFLAMMATION AND HEMOSIDERIN DEPOSITION. UTERUS, ENDOCERVIX, CURETTAGE: - PROLIFERATIVE ENDOMETRIUM WITH MILD CHRONIC ENDOMETRITIS. Specimen Description: (1) Cone biopsy of cervix, tag at 12 o'clock; (2) endocervical curettings. Operative Procedure: Endocervix cold knife cone biopsy, curettage of cervix. Patient Information/Histor y/Diagnosis: Endocervical adenocarcinoma in situ. Gross: The specimens are received in two containers, each labeled Selwyn Dee. Received in the first container and labeled cone biopsy of cervix, tag at 12 o'clock is a 1.8 x 1.6 x 2.8-cm cervical conization specimen with an attached tag as indicated. The ectocervical mucosa is belcher-pink, wrinkled and finely granular around the ectocervical os. The surgical margins are marked with ink as follows: endocervical margin-green, remaining margins- black. The specimen is serially sectioned and sequentially submitted from 12 o'clock clockwise in cassettes A1 through A5. Received in the second container labeled endocervical curettings is a 0.5 x 0.5 x 0.1-cm aggregate of belcher particulate tissue and blood entrapped in a Telfa pad. The entire specimen is submitted in cassette B1. LWL/LKP 11.24.2008 04:08 pm Microscopic: The slides are labeled [id number] and Selwyn Dee. The cervical conization includes the transformation zone showing adenocarcinoma in situ involving a few glands. There is no involvement of the excision margins. Chronic inflammation and hemosiderin deposition are present focally consistent with a prior biopsy site. The endocervical curettage consists of proliferative endometrium showing a chronic inflammatory infiltrate including scattered plasma cells. Endocervix is not present. DEEPTI/RITU 11.25.2008 12:27 pm Staging Form: No. ELECTRONIC SIGNATURE FOR CARLOS CASILLAS M.D.- 11/25/08 04:57 pm INTERFACE SYSTEM 11/24/2008 11:2 1 AM CDT us Yazan Mcmahon MD PATHOLOGY/CYTOLOGY ORDERA BLES Final Result Performing Organization Address [facility] de Phone Number INTERFACE SYSTEM Refer to clinic/hospital department * POC , URINE (11/24/2008 9:20 AM CDT) , URINE POC Negative Negative [facility] 11/24/2008 9:20 AM CDT 11/24/2008 9:20 AM CDT us Yazan Mcmahon MD POINT OF CARE TESTING Fin al Result Performing Organization Address [facility] Co de Phone Number INTERFACE SYSTEM Refer to clinic/hospital department [facility] CLIA# [id number] [address] [place] [address] * HEMOGLOBIN AND HEMATOCRIT (11/24/2008 8:32 AM CDT) HEMOGLOBIN 12.6 11.8 - 14.8 g/dL [facility] HEMATOCRIT 38.5 35.5 - 44.0 % [facility] 11/24/2008 8:32 AM CDT 11/24/2008 9:21 AM CDT Narrative INTERFACE SYSTEM - 11/24/2008 9:30 AM CDT RM 12 us Yazan Mcmahon MD HEMATOLOGY ORDERABLES Fin al Result INTERFACE SYSTEM Refer to clinic/hospital department [facility] CLIA# [id number] [address] [place] [address] documented in this encounter Visit Diagnoses Not on filedocumented in this encounter Care Teams Extern Relationship Specialty Start Date End Date Rodger Lee MD [address] [place] [phone] PCP - General Internal Medicine 06/15/16 documented as of this encounter
--- OUTSIDE RECORDS SUMMARY | 2024-11-28 11:45 | XMS_ITS | Encounter Summary ---
Author Organization [facility] Address [address] [place] [address] Care Team Providers Care Artificial Breeding Ranch Supervisor Name Role Phone Rodger Lee MD Primary Care Provider [phone] Encounter Details Date Type Department Care Team (Late st Contact Info) Description 12/16/2008 Outpatient Historical [facility] Yazan Mcmahon MD 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 [address] documented as of this encounter Procedures Procedure Name Priority Date/Time Associated Diagnosis Comments CBC WITH DIFFERENTIAL Routine 01/13/2009 5:58 AM CDT BASIC METABOLIC PANEL Routine 01/13/2009 5:58 AM CDT CYTOLOGY, NON GYNE Routine 01/12/2009 10 :35 AM CDT PATHOLOGY Routine 01/12/2009 10:31 AM CDT POC , URINE Routine 01/12/2009 6:31 AM CDT CBC WITH DIFFERENTIAL Routine 01/08/2009 2:49 PM CDT BASIC METABOLIC PANEL Routine 01/08/2009 2:49 PM CDT TYPE AND SCREEN Routine 01/08/2009 2:45 PM CDT documented in this encounter Results * BASIC METABOLIC PANEL (01/13/2009 5:58 AM CDT) CALCIUM 8.6 8.6 - 10.2 mg/dL [facility] CO2 26 22 - 30 mmol/L [facility] CREATININE 0.79 0.51 - 0.95 mg/dL [facility] POTASSIUM 4.0 3.5 - 4.9 mmol/L [facility] BUN 8 6 - 20 mg/dL [facility] CHLORIDE 107 96 - 108 mmol/L [facility] GLUCOSE 97 65 - 99 mg/dL [facility] SODIUM 141 135 - 145 mmol/L [facility] GFR, >60 >=60 mL/min/1.7 sq meter [facility] GFR >60 >=60 mL/min/1.7 sq meter [facility] Comment: Modification of Diet in Renal Disease (MDRD) study formula. Estimated GFR rate interpretative information for both Americans and non- Americans is available on the [facility] Intranet at: [email or web address] Select: Lab Policies and Procedures Select: Reference Ranges - GFR 01/13/2009 5:58 AM CDT 01/13/2009 6:17 AM CDT Yazan Mcmahon MD CHEMISTRY ORDERABLES Edit ed INTERFACE SYSTEM Refer to clinic/hospital department [facility] CLIA# [id number] [address] [place] [address] * (ABNORMAL) CBC WITH DIFFERENTIAL (01/13/2009 5:58 AM CDT) MCV 86.8 82.0 - 99.0 fL [facility] PLATELETS 229 140 - 350 K/uL [facility] HEMOGLOBIN 10.5(L) 11.8 - 14.8 g/dL [facility] RDW 13.6 11.5 - 14.5 % [facility] WBC 9.1 4.0 - 9.8 K/uL [facility] MCH 27.7 27.2 - 32.6 pg [facility] MPV 11.8 9.3 - 12.4 fL [facility] HEMATOCRIT 32.9(L) 35.5 - 44.0 % [facility] RDW-STDEV 43.0 37.1 - 48.7 fL [facility] RBC 3.79(L) 3.90 - 4.90 M/uL [facility] MCHC 31.9 31.5 - 35.5 % [facility] EOSINOPHILS 0 0 - 7 % [facility] EOSINOPHIL ABSOLUTE 0.00 0.00 - 0.70 K/uL [facility] LYMPHOCYTES 13(L) 16 - 45 % [facility] LYMPHOCYTE ABSOLUTE 1.20 0.70 - 4.50 K/uL [facility] BASOPHILS 0 0 - 2 % [facility] BASOPHILS ABSOLUTE 0.01 0.00 - 0.20 K/uL [facility] MONOCYTES 8 3 - 13 % [facility] MONOCYTE ABSOLUTE 0.75 0.10 - 1.30 K/uL [facility] NEUTROPHILS 79(H) 45 - 70 % [facility] NEUTROPHIL ABSOLUTE 7.17(H) 1.90 - 7.00 K/uL [facility] 01/13/2009 5:58 AM CDT 01/13/2009 6:17 AM CDT us Yazan Mcmahon MD HEMATOLOGY ORDERABLES Israel bryan INTERFACE SYSTEM Refer to clinic/hospital department [facility] CLIA# [id number] [address] [place] [address] * CYTOLOGY, NON GYNE (01/12/2009 10:35 AM CDT) PATHOLOGY/CYT OLOGY REPORT [address] [address] Patient: SELWYN DEE : 1980 Procedure Date: 01/12/2009 Accession Date: 01/12/2009 Case No: [id number] Ordering Dr: YAZAN GALVAN Case type SW is performed by [place], [place]; all other case types are performed by [facility], [place], [place] SURGICAL PATHOLOGY & NON-GYNECOLOGIC CYTOPATHOLOGY REPORT DIAGNOSIS: ABDOMINAL CAVITY, PELVIC WASHINGS, CYTOLOGY AND CELL BLOCK: - NO ATYPICAL CELLS SEEN. Specimen Description: Pelvic washings. Operative Procedure: Pelvic washings. Patient Information/Histor y/Diagnosis: Focal endocervical adenocarcinoma in situ. Gross: Received is 33 mL of red fluid. A ThinPrep and a cell block are prepared. [facility] 01.13.2009 06:03 am Microscopic: The ThinPrep and cell block sections contain only a few scattered mesothelial cells and histiocytes mixed with blood. No definite malignant cells are identified. [facility] 01.13.2009 06:03 am Staging Form: No. ELECTRONIC SIGNATURE FOR LEN BERRIOS M.D.- 01/13/09 10:15 am INTERFACE SYSTEM 01/12/2009 10:3 5 AM CDT us Yazan Mcmahon MD PATHOLOGY/CYTOLOGY ORDERA BLES Final Result INTERFACE SYSTEM Refer to clinic/hospital department * PATHOLOGY (01/12/2009 10:31 AM CDT) FINAL REPORT [address] [address] Patient: SELWYN DEE : 1980 Procedure Date: 01/12/2009 Accession Date: 01/12/2009 Case No: [id number] Ordering Dr: YAZAN GALVAN Case type SW is performed by [place], [place]; all other case types are performed by [facility], [place], [place] SURGICAL PATHOLOGY & NON-GYNECOLOGIC CYTOPATHOLOGY REPORT DIAGNOSIS UTERUS, CERVIX, TOTAL ABDOMINAL HYSTERECTOMY: - BIOPSY SITE CHANGES. UTERUS, ENDOMETRIUM, TOTAL ABDOMINAL HYSTERECTOMY: - PROLIFERATIVE PATTERN. UTERUS, MYOMETRIUM AND SEROSA, TOTAL ABDOMINAL HYSTERECTOMY: - NO SIGNIFICANT HISTOPATHOLOGIC ALTERATIONS. Specimen Description: Uterus, cervix. Operative Procedure: Total abdominal hysterectomy. Patient Information/Histor y/Diagnosis: Focal endocervical adenocarcinoma in situ. Gross: Received in one container labeled Selwyn Dee., uterus, cervix is a 96- g, 8.3 x 5.5 x 4.3-cm uterus/cervix. The serosa is pink-belcher, smooth and glistening. The resection margin is inked blue. No paracervical tissue is attached to the uterus. The 2.4 x 2.9 cm ectocervix is pink-belcher and glistening. The ectocervix is present predominantly on the anterior surface. The 0.8 cm slit-like os leads into a 2.0-cm trabeculated endocervical canal. The transformation zone is distinct. There is a 1.0 x 0.8-cm hemorrhagic, ulcerated area on the endocervix adjacent to the transformation zone. This ulcer is present on both the anterior and posterior endocervical canal and extends across the left wall of the uterus. No mass lesions are identified. The 5.5 x 3.0-cm endometrial cavity is lined by a 0.3-cm thick pink-belcher, focally hemorrhagic endometrium. The 1.8-cm thick myometrium is pink-belcher and unremarkable. Shopfitter sections are submitted as follows: R8-X6-slmjeyjaxhdi canal from 12-3 o'clock; U8-I9-dszcfztfydac canal from 3-6 o'clock; F9-N8-wbjrcqvuwbgg canal from 6-9 o'clock; J95-Q13-suqdmkfskw al canal from 9-12 o'clock; A13- anterior endomyometrium; M10-tsnevvovw endomyometrium. [facility] 01.12.2009 08:04 pm Microscopic: Received are slides labeled [id number], Selwyn Dee. Sections of uterine cervix identify biopsy site changes that includes fibrosis, hemosiderin containing macrophages, and a foreign body reaction to nonpolarizable, pigmented material. The biopsy site changes essentially obliterate the zone of transformation. Focal squamous metaplasia is identified. Tubal metaplasia is also noted. Residual adenocarcinoma in situ is not identified. The ectocervical margin of resection consists of unremarkable stratified squamous epithelium. The endometrium is proliferative. Sections of myometrium and uterine serosa are unremarkable. [facility] 01.13.2009 04:48 pm Staging Form: No. ELECTRONIC SIGNATURE FOR ASIF JNAE M.D.- 01/13/09 05:02 pm INTERFACE SYSTEM 01/12/2009 10:3 1 AM CDT us Yazan Mcmahon MD PATHOLOGY/CYTOLOGY ORDERA BLES Final Result INTERFACE SYSTEM Refer to clinic/hospital department * POC , URINE (01/12/2009 6:31 AM CDT) CLIA LICENSE [id number] INTERF ARCHIE SYSTEM , URINE POC Negative Negative INTERFACE SYSTEM 01/12/2009 6:31 AM CDT 01/12/2009 6:31 AM CDT Yazan Mcmahon MD POINT OF CARE TESTING Fin al Result INTERFACE SYSTEM Refer to clinic/hospital department * (ABNORMAL) BASIC METABOLIC PANEL (01/08/2009 2:49 PM CDT) SODIUM 139 135 - 145 mmol/L [facility] CO2 25 22 - 30 mmol/L [facility] CALCIUM 9.9 8.6 - 10.2 mg/dL [facility] CREATININE 0.93 0.51 - 0.95 mg/dL [facility] POTASSIUM 3.7 3.5 - 4.9 mmol/L [facility] BUN 14 6 - 20 mg/dL [facility] CHLORIDE 103 96 - 108 mmol/L [facility] GLUCOSE 61(L) 65 - 99 mg/dL [facility] GFR, >60 >=60 mL/min/1.7 sq meter [facility] GFR >60 >=60 mL/min/1.7 sq meter [facility] Comment: Modification of Diet in Renal Disease (MDRD) study formula. Estimated GFR rate interpretative information for both Americans and non- Americans is available on the [facility] Intranet at: [email or web address] Select: Lab Policies and Procedures Select: Reference Ranges - GFR 01/08/2009 2:49 PM CDT 01/08/2009 4:36 PM CDT Yazan Mcmahon MD CHEMISTRY ORDERABLES Edit ed INTERFACE SYSTEM Refer to clinic/hospital department [facility] CLIA# [id number] [address] [place] [address] * CBC WITH DIFFERENTIAL (01/08/2009 2:49 PM CDT) HEMOGLOBIN 13.1 11.8 - 14.8 g/dL [facility] RDW 13.4 11.5 - 14.5 % [facility] WBC 6.4 4.0 - 9.8 K/uL [facility] MCH 28.4 27.2 - 32.6 pg [facility] MPV 12.3 9.3 - 12.4 fL [facility] HEMATOCRIT 38.9 35.5 - 44.0 % [facility] RDW-STDEV 40.7 37.1 - 48.7 fL [facility] RBC 4.62 3.90 - 4.90 M/uL [facility] MCHC 33.7 31.5 - 35.5 % [facility] MCV 84.2 82.0 - 99.0 fL [facility] PLATELETS 269 140 - 350 K/uL [facility] MONOCYTES 5 3 - 13 % [facility] MONOCYTE ABSOLUTE 0.30 0.10 - 1.30 K/uL [facility] NEUTROPHIL ABSOLUTE 3.63 1.90 - 7.00 K/uL [facility] EOSINOPHILS 1 0 - 7 % [facility] EOSINOPHIL ABSOLUTE 0.07 0.00 - 0.70 K/uL [facility] LYMPHOCYTES 37 16 - 45 % [facility] LYMPHOCYTE ABSOLUTE 2.40 0.70 - 4.50 K/uL [facility] NEUTROPHILS 57 45 - 70 % [facility] BASOPHILS 0 0 - 2 % [facility] BASOPHILS ABSOLUTE 0.02 0.00 - 0.20 K/uL [facility] 01/08/2009 2:49 PM CDT 01/08/2009 4:36 PM CDT Yazan Mcmahon MD HEMATOLOGY ORDERABLES Israel bryan Performing Organization Address City/[facility] de Phone Number INTERFACE SYSTEM Refer to clinic/hospital department [facility] CLIA# [id number] [address] [place] [address] * TYPE AND SCREEN (01/08/2009 2:45 PM CDT) SPECIMEN LIFE 3 days from OR date [facility] HISTORY CHECK History Checked [facility] ABO/RH TYPE O Positive [facility] ANTIBODY SCREEN Negative [facility] 01/08/2009 2:45 PM CDT Result [facility] Yazan Mcmahon MD BLOOD BANK ORDERABLES Israel bryan Performing Organization Address [facility] de Phone Number INTERFACE SYSTEM Refer to clinic/hospital department [facility] CLIA# [id number] [address] [place] [address] documented in this encounter Visit Diagnoses Not on filedocumented in this encounter Care Teams Artificial Breeding Ranch Supervisor Relationship Specialty Start Date End Date Rodger Lee MD [address] [place] [phone] PCP - General Internal Medicine 06/15/16 documented as of this encounter
--- OUTSIDE RECORDS SUMMARY | 2024-11-28 11:45 | XMS_ITS | Encounter Summary ---
Author Organization [facility] Address [address] [place] [address] Care Team Providers Care Diesel Engine Inspector Name Role Phone Rodger Lee MD Primary Care Provider [phone] Encounter Details Date Type Department Care Team (Latest Contact Info) Description 10/15/2008 Outpatient Historical [facility] Jarett Mcmahon MD 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 [address] documented as of this encounter Visit Diagnoses Diagnosis Other specified complication, antepartum(646.83) Other specified complication, antepartum documented in this encounter Care Teams Diesel Engine Inspector Relationship Specialty Start Date End Date Rodger eLe MD [address] [place] [phone] PCP - General Internal Medicine 06/15/16 documented as of this encounter
[2024-11-28 11:51] VITALS: BP 126/78; PULSE 80; RESP 18; TEMP 36.7; O2SAT 99
--- NOTE | 2024-11-28 12:04 | ED.URI ---
HPI - URI/Sore Throat General Chief Complaint: Upper Respiratory Infection Stated Complaint: flu symptoms Time Seen by Provider: 11/28/24 12:04 Source: patient and RN notes reviewed Mode of arrival: ambulatory Limitations: no limitations History of Present Illness HPI Narrative: 44-year-old female presents [facility] complaining of upper respiratory symptoms for 4 days. Patient reports having body aches, cough, congestion, sore throat. She said today are the symptoms are getting worse today. Patient states she has worsening body aches and congestion. Patient reports she has a dry nonproductive cough. Patient has been taking Tylenol and ibuprofen for symptom management with some relief. Patient denies any significant past medical history. Patient took a home COVID test that was negative Related Data Home Medications ?Medication ?Instructions ?Recorded ?Confirmed ?Last Taken ?Type alprazolam 0.5 mg tablet (Xanax) 0.5 mg PO QID 03/09/22 10/29/24 Unknown History multivitamin (Daily Multi-Vitamin 1 tablet PO DAILY 03/09/22 10/29/24 Unknown History tablet) zolpidem 10 mg tablet 10 mg PO QHS PRN Insomnia 03/09/22 10/29/24 Unknown History brexpiprazole 1 mg tablet (Rexulti) 1 mg PO DAILY 03/24/24 10/29/24 Unknown History fluoxetine 40 mg capsule 40 mg PO DAILY 08/18/24 10/29/24 Unknown History Allergies Allergy/AdvReac Type Severity Reaction Status Date / Time cephalexin (From Keflex) AdvReac Intermediate Diarrhea Verified 11/28/24 11:52 trazodone AdvReac Intermediate Nausea Verified 11/28/24 11:52 tramadol AdvReac Mild Gastrointestinal Verified 11/28/24 11:52 Upset Review of Systems Review of Systems: CONSTITUTIONAL: Denies fever, chills, or sweats. Positive for body aches. EYES: Denies visual changes, redness, or discharge. ENT: Positive for rhinorrhea, congestion, sore throat. Negative for otalgia. CARDIOVASCULAR: Denies chest pain, palpitations, or edema. RESPIRATORY: Positive for cough. Negative for dyspnea or wheezing. GASTROINTESTINAL: Denies abdominal pain, nausea, vomiting, or diarrhea. GENITOURINARY: Denies dysuria or hematuria. SKIN: Denies rash or itching. MUSCULOSKELETAL: Denies back pain, joint pain, or myalgia. NEUROLOGIC: Denies headache, numbness, or weakness. PSYCHIATRIC: Denies anxiety or depression. All other systems reviewed are negative, except as documented in HPI. [facility] Past Medical History Medical History delivery delivered Thyroid disorder Anxiety Surgical History Surgical History H/O: hysterectomy H/O cone biopsy of cervix H/O discectomy Family History Family History Mother Thyroid disorder Grandparent Heart disease Social History Social History Social History: 10/29/24 patient declined SDOH Smoking status: Never smoker Alcohol intake: never Substance use: never Do You Feel Safe in your Home?: Yes Lack of Transportation: No Lack of Food: Never True Current Housing: I Have Housing Concerned About Future Housing: No Difficulty Paying Gas/Electric Bills: No Difficulty Paying for Meds: No Currently Unemployed: No Education: Associate Degree Difficulty w/ Childcare or Family Care: No Living arrangements: with family 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 There is no relevant family history pertinent to the patient complaint. Exam Narrative: GENERAL: This is a well-nourished, well-developed adult, in no apparent distress. They are non ill-appearing, nontoxic appearing. HEAD: normocephalic, atraumatic. EYES: Sclera clear/white. Vision is grossly intact. Conjunctiva normal bilaterally. Extraocular movements intact. EARS: External ears normal, auditory canals clear and without drainage, TMs without erythema or perforation. Hearing grossly intact. NOSE: External nose normal with no obvious nasal discharge, nasal turbinates erythematous with clear rhinorrhea. THROAT: Mucous membranes moist, posterior pharynx erythema without swelling without exudate. Uvula is midline. Postnasal drip present. NECK: Neck supple, non-tender without lymphadenopathy, masses or thyromegaly. CARDIOVASCULAR: Regular rate and rhythm without murmurs, gallops, or rubs. RESPIRATORY: Clear to auscultation. Breath sounds equal bilaterally. No wheezes, rales, or rhonchi. Respiratory rate normal, respiratory effort nonlabored, no respiratory distress SKIN: warm, Dry, intact with no suspicious lesions or rash, good texture and turgor. NEURO: awake, alert, and oriented to person, place and time. There were no obvious focal neurologic abnormalities. EXTREMITIES: No joint tenderness, effusion, or edema noted. BACK: Nontender without deformity. Course Course Emergency Course: Portions of this record may have been created with voice recognition software Level of Care: Express [facility] Visit Vital Signs Vital signs: Vital Signs Temperature 98.0 F 11/28/24 11:51 Pulse Rate 80 11/28/24 11:51 Respiratory Rate 18 11/28/24 11:51 Blood Pressure 126/78 11/28/24 11:51 Pulse Oximetry 99 11/28/24 11:51 Oxygen Delivery Room Air 11/28/24 11:51 Temperature 98.0 F 11/28/24 11:51 Pulse Rate 80 11/28/24 11:51 Respiratory Rate 18 11/28/24 11:51 Blood Pressure 126/78 11/28/24 11:51 Pulse Oximetry 99 11/28/24 11:51 Oxygen Delivery Room Air 11/28/24 11:51 MDM - URI/Sore Throat MDM Narrative Medical decision making narrative: Rapid flu and strep are. Throat culture culture pending. Symptoms likely viral in etiology. Patient likely has a viral bronchitis. Will treat with Medrol Dosepak given patient's severity of symptoms. Discussed physical exam findings. Advised supportive measures and signs/symptoms to go to the ER. Pt is appropriate for outpt treatment and f/u. Differential Diagnosis Differential diagnosis: Likely upper respiratory infection, viral infection, bronchitis and pharyngitis Lab Data Attestation: I reviewed the patient's lab results. Labs: Lab Results 11/28/24 11/28/24 Range/Units 12:05 12:15 POC Influenza A Ag Negative (Negative) POC Influenza B Ag Negative (Negative) POC Grp A Strep Screen Negative (Negative) Discharge Plan Discharge Clinical Impression: Bronchitis Patient Disposition: Home Condition: Stable Instructions: Antibiotic Form, Acute Bronchitis (ED) Additional Instructions: Your rapid strep swab and flu was negative today at [facility]. You will be notified in a few days if the culture comes back positive for strep, and appropriate antibiotics will be called in for you at that time. Your symptoms are likely due to a viral illness, which is not treated with antibiotics. Take the Medrol Dosepak as directed. Viral symptoms can be present for up to 10-14 days. Take Tylenol or ibuprofen for fever or pain. Rest and stay hydrated. Follow up with your PCP in 3-5 days if symptoms are not improving. Go to the ER immediately if you develop difficulty breathing or swallowing Patient Language: Occitan Prescriptions: New methylprednisolone 4 mg tablets,dose pack See Rx Instructions .ROUTE .COMPLEX Qty: 21 0RF Rx Instructions: for 6 days No Action Rexulti 1 mg tablet 1 mg PO DAILY zolpidem 10 mg tablet 10 mg PO QHS PRN (Reason: Insomnia) alprazolam [Xanax] 0.5 mg tablet 0.5 mg PO QID multivitamin [Daily Multi-Vitamin] Tablet 1 tablet PO DAILY fluoxetine 40 mg capsule 40 mg PO DAILY omeprazole 20 mg capsule,delayed release(DR/EC) 20 mg PO DAILY Qty: 90 1RF levothyroxine 100 mcg tablet See Rx Instructions .ROUTE .COMPLEX Qty: 90 1RF Dose Instruction: Take 1 tablet by mouth once daily Rx Instructions: Take 1 tablet by mouth once daily Follow-up/Referrals: Amee Toth APN-C [Primary Care Provider] - Stand Alone Forms: Work/School Release IP Time of Disposition: 12:40
[2024-11-28 12:07] LABS: EDSTREPNEGPOS1 Negative (Negative)
[2024-11-28 12:16] LABS: EDINFLUASCREEN Negative (Negative); EDINFLUBSCREEN Negative (Negative)
== END 2024-11-28 12:44 | disposition home or self-care (01) ==
PROVIDERS: PCP Nurse Practitioner Family
DX: J40 Bronchitis, not specified as acute or chronic (principal); F41.9 Anxiety disorder, unspecified; E07.9 Disorder of thyroid, unspecified
CPT/HCPCS: 87081; 87804; 87880; 99213; G0463

== ENCOUNTER 2024-12-07 14:02 | Emergency (ER) | payer OTHER, SELFPAY ==
--- NOTE | 2024-12-07 14:04 | ED.URI ---
HPI - URI/Sore Throat General Chief Complaint: Upper Respiratory Infection Stated Complaint: Cough Time Seen by Provider: 12/07/24 14:20 Source: patient and RN notes reviewed Mode of arrival: ambulatory Limitations: no limitations History of Present Illness HPI Narrative: 44-year-old female presents with concern of for 2 week history of sinus congestion, drainage, facial pressure. She reports cough. Reports she finished a steroid pack and is been taking [id number] medications without relief of symptoms. MD elicited complaint: cough and nasal congestion Related Data Home Medications ?Medication ?Instructions ?Recorded ?Confirmed ?Last Taken ?Type alprazolam 0.5 mg tablet (Xanax) 0.5 mg PO QID 03/09/22 10/29/24 Unknown History multivitamin (Daily Multi-Vitamin 1 tablet PO DAILY 03/09/22 10/29/24 Unknown History tablet) zolpidem 10 mg tablet 10 mg PO QHS PRN Insomnia 03/09/22 10/29/24 Unknown History brexpiprazole 1 mg tablet (Rexulti) 1 mg PO DAILY 03/24/24 10/29/24 Unknown History fluoxetine 40 mg capsule 40 mg PO DAILY 08/18/24 10/29/24 Unknown History Allergies Allergy/AdvReac Type Severity Reaction Status Date / Time cephalexin (From Keflex) AdvReac Intermediate Diarrhea Verified 12/07/24 14:04 tramadol AdvReac Intermediate Gastrointestinal Verified 12/07/24 14:04 Upset trazodone AdvReac Intermediate Nausea Verified 12/07/24 14:04 Review of Systems Review of Systems: CONSTITUTIONAL: Denies malaise, chills, sweats, or fever. EYES: Denies visual changes, redness, or discharge. ENT: Reports rhinorrhea, congestion, sinus pain CARDIOVASCULAR: Denies chest pain, palpitations, or edema. RESPIRATORY: Reports cough. Denies dyspnea. GASTROINTESTINAL: Denies abdominal pain, nausea, vomiting, diarrhea SKIN: Denies rash or itching. MUSCULOSKELETAL: Denies myalgia. NEUROLOGIC: Reports headache. All systems reviewed & are unremarkable except as noted in HPI and below PMFSH Past Medical History Medical History delivery delivered Thyroid disorder Anxiety Surgical History Surgical History H/O: hysterectomy H/O cone biopsy of cervix H/O discectomy Family History Family History Mother Thyroid disorder Grandparent Heart disease Social History Social History Social History: 10/29/24 patient declined SDOH Smoking status: Never smoker Alcohol intake: never Substance use: never Do You Feel Safe in your Home?: Yes Lack of Transportation: No Lack of Food: Never True Current Housing: I Have Housing Concerned About Future Housing: No Difficulty Paying Gas/Electric Bills: No Difficulty Paying for Meds: No Currently Unemployed: No Education: Associate Degree Difficulty w/ Childcare or Family Care: No Living arrangements: with family 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 There is no relevant family history pertinent to the presenting complaint Exam Narrative: GENERAL: Well-appearing, well-nourished, and in no acute distress. HEAD: Normocephalic EYES: PERRLA, conjunctivae clear ENT: Nares clear, turbinates edematous and erythematous. Mucous membranes moist. TM pearly stroud with dull light reflex bilaterally; no tragal tenderness. Oropharynx not erythematous without lesions. Tonsils not enlarged and without exudate, no drooling, no hoarseness, no trismus, uvula midline. NECK: Supple. No lymphadenopathy CHEST: Clear to auscultation, breath sounds equal. No wheezing, rhonchi, rales, or stridor. No respiratory distress, speaks in full sentences. HEART: Regular rate and rhythm. No murmur heard. SKIN: Warm, dry, no rash. NEURO: Alert and oriented x3. PSYCH: Normal mood and affect Course Course Emergency Course: Patient is aware of diagnosis, understands and agrees to treatment plan. Anticipatory guidance given. Patient agrees to follow-up as directed and is aware of reasons to seek care at the emergency department. Portions of this record may have been created with voice recognition software Level of Care: Express Care Visit Vital Signs Vital signs: Reviewed. MDM - URI/Sore Throat MDM Narrative Medical decision making narrative: Differential diagnosis considered: Umanzor virus, strep pharyngitis, allergic rhinitis, upper respiratory tract infection, sinusitis, rhinosinusitis, nasopharyngitis. viral pharyngitis, otitis media, otitis externa, pneumonia, bronchitis, viral cough syndrome, viral syndrome, and influenza. Exam findings show no acute concerns or changes; patient is non-toxic appearing and is in no distress. Patient is appropriate for outpatient treatment and follow-up. Lab Data Attestation: I reviewed the patient's lab results. Critical Care Time Critical Care Time Critical Care Time: No Discharge Plan Discharge Clinical Impression: Sinobronchitis Patient Disposition: Home Condition: Stable Instructions: Antibiotic Form, Sinusitis (ED), Acute Bronchitis (ED) Additional Instructions: Take medication as prescribed Recommend antihistamine such as Benadryl at night time and Zyrtec or Dena during the day Cough syrup may cause drowsiness; avoid driving or take it at night time. Also, recommend symptomatic treatment includes: rest, fluids, and increase humidity of the air at home. Recommend Acetaminophen as directed on the bottle to reduce fever, pain, headache. Avoid smoking/second-hand smoke. Please schedule a follow-up visit with your personal physician for further evaluation and treatment within 3-5days. If your symptoms persist, change or worsen significantly before you can contact your personal physician then please, without delay, go to the emergency department for further evaluation. Patient Language: Tanzanian Prescriptions: New pseudoephedrine HCl [12 Hour Decongestant] 120 mg tablet extended release 120 mg PO Q12H PRN (Reason: nasal congestion) Qty: 20 0RF promethazine-DM 6.25-15 mg/5 mL syrup 5 ml PO Q4-6H PRN (Reason: cough) Qty: 120 0RF doxycycline monohydrate 100 mg tablet 100 mg PO BID 7 Days Qty: 14 0RF ipratropium bromide 21 mcg (0.03 %) spray,non-aerosol 2 spray NASAL TID PRN (Reason: nasal drainage) Qty: 30 0RF Rx Instructions: administer into each nostril No Action Rexulti 1 mg tablet 1 mg PO DAILY methylprednisolone 4 mg tablets,dose pack See Rx Instructions .ROUTE .COMPLEX Qty: 21 0RF Rx Instructions: for 6 days zolpidem 10 mg tablet 10 mg PO QHS PRN (Reason: Insomnia) alprazolam [Xanax] 0.5 mg tablet 0.5 mg PO QID multivitamin [Daily Multi-Vitamin] Tablet 1 tablet PO DAILY fluoxetine 40 mg capsule 40 mg PO DAILY omeprazole 20 mg capsule,delayed release(DR/EC) 20 mg PO DAILY Qty: 90 1RF levothyroxine 100 mcg tablet See Rx Instructions .ROUTE .COMPLEX Qty: 90 1RF Dose Instruction: Take 1 tablet by mouth once daily Rx Instructions: Take 1 tablet by mouth once daily Follow-up/Referrals: Amee Toth, FLOTATION OPERATOR-C [Primary Care Provider] - Time of Disposition: 14:25
--- OUTSIDE RECORDS SUMMARY | 2024-12-07 14:04 | XMS_ITS | Encounter Summary ---
Author Organization [facility] Address [address] [place] [address] Care Team Providers Care Training Professional Name Role Phone Rodger Lee MD Primary Care Provider [phone] Encounter Details Date Type Department Care Team (Late st Contact Info) Description 10/02/2008 Outpatient Historical [facility] Jarett Mcmahon MD 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 [address] documented as of this encounter Procedures Procedure Name Priority Date/Time Associated Diagnosis Comments TYPE AND SCREEN Routine 10/02/2008 4:15 AM CDT HIV RAPID SCREEN Stat 10/02/2008 4:10 AM CDT CBC WITH DIFFERENTIAL Stat 10/02/2008 4:10 AM CDT documented in this encounter Results * TYPE AND SCREEN (10/02/2008 4:15 AM CDT) HISTORY CHECK No Historical ABO/Rh [facility] ABO/RH TYPE O Positive [facility] SPECIMEN LIFE 3 days from drawdate [facility] ANTIBODY SCREEN Negative [facility] Blood specimen (specimen) 10/02/2008 4:15 AM CDT us Jarett Mcmahon MD BLOOD BANK ORDERABLES Israel bryan Performing Organization Address [facility] Phone Number INTERFACE SYSTEM Refer to clinic/hospital department [facility] CLIA# [id number] [address] [place] [address] * HIV RAPID SCREEN (10/02/2008 4:10 AM CDT) RAPID HIV SCREEN Nonreactive Nonreactive [facility] Comment:Results called to Oleg garza at 10/02/08 08:37 and read back verified. Blood specimen (specimen) 10/02/2008 4:10 AM CDT 10/02/2008 7:56 AM CDT Narrative INTERFACE SYSTEM - 10/02/2008 8:37 AM CDT blood in lab us Jarett Mcmahon MD CHEMISTRY ORDERABLES Radha l Result Performing Organization Address [facility] de Phone Number INTERFACE SYSTEM Refer to clinic/hospital department [facility] CLIA# [id number] [address] [place] [address] * (ABNORMAL) CBC WITH DIFFERENTIAL (10/02/2008 4:10 AM CDT) MCV 87.4 82.0 - 99.0 fL [facility] PLATELETS 170 140 - 350 K/uL [facility] HEMOGLOBIN 11.5(L) 11.8 - 14.8 g/dL [facility] RDW 14.1 11.5 - 14.5 % [facility] WBC 11.3(H) 4.0 - 9.8 K/uL [facility] MCH 29.0 27.2 - 32.6 pg [facility] MPV 11.8 9.3 - 12.4 fL [facility] HEMATOCRIT 34.7(L) 35.5 - 44.0 % [facility] RDW-STDEV 44.2 37.1 - 48.7 fL [facility] RBC 3.97 3.90 - 4.90 M/uL [facility] MCHC 33.1 31.5 - 35.5 % [facility] EOSINOPHILS 1 0 - 7 % [facility] EOSINOPHIL ABSOLUTE 0.06 0.00 - 0.70 K/uL [facility] LYMPHOCYTES 19 16 - 45 % [facility] LYMPHOCYTE ABSOLUTE 2.15 0.70 - 4.50 K/uL [facility] BASOPHILS 0 0 - 2 % [facility] BASOPHILS ABSOLUTE 0.02 0.00 - 0.20 K/uL [facility] MONOCYTES 5 3 - 13 % [facility] MONOCYTE ABSOLUTE 0.51 0.10 - 1.30 K/uL [facility] NEUTROPHILS 76(H) 45 - 70 % [facility] NEUTROPHIL ABSOLUTE 8.52(H) 1.90 - 7.00 K/uL [facility] Blood specimen (specimen) 10/02/2008 4:10 AM CDT 10/02/2008 4:23 AM CDT us Jarett Mcmahon MD HEMATOLOGY ORDERABLES Israel bryan INTERFACE SYSTEM Refer to clinic/hospital department [facility] CLIA# [id number] [address] [place] [address] documented in this encounter Visit Diagnoses Not on filedocumented in this encounter Care Teams Training Professional Relationship Specialty Start Date End Date Rodger Lee MD [address] [place] [phone] PCP - General Internal Medicine 06/15/16 documented as of this encounter
--- OUTSIDE RECORDS SUMMARY | 2024-12-07 14:04 | XMS_ITS | Clinical Summary ---
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 Active FLUoxetine (PROzac) 20 mg capsule 8 [...] on file Legal Sex Female 4:56 AM MINING PLANT OPERATOR Gender Identity Not on file Sexual Orientation Not on file Last Filed Vital Signs Vital Sign Reading Time Taken Comments Blood Pressure 134/90 04/14/2024 9:53 AM CDT Pulse 77 08/14/2023 3:26 PM MINING PLANT OPERATOR Temperature 36.6 C (97.8 F) 08/14/2023 3:26 PM MINING PLANT OPERATOR Respiratory Rate 12 08/14/2023 3:26 PM MINING PLANT OPERATOR Oxygen Saturation 93% 08/14/2023 3:26 PM MINING PLANT OPERATOR Inhaled Oxygen Concentration - - Weight 107.5 kg (237 lb) 04/14/2024 9:53 AM CDT Height 172.7 cm (5' 8) 04/14/2024 9:53 AM CDT Body Mass Index 36.04 04/14/2024 9:53 AM CDT Plan of Treatment Upcoming Encounters Date Type Department Care Team (Late st Contact Info) Description 01/14/2025 2:30 PM CDT Office Visit [facility] CHRONIC CONDITION NURSE - [address] [address] Jarett Mcmahon MD [address] [address] Health Maintenance Due Date Last Done Comments Pre-Diabetes and Diabetes Screening 1980 DTAP/TDAP/TD VACCINES (1 - Tdap) 02/10/1999 HEPATITIS B VACCINES (1 of 3 - 19+ 3-dose series) 02/10/1999 BREAST CANCER SCREENING 08/11/2025 08/11/19, 12/05/2022, 10/10/2021, Additional history exists INFLUENZA VACCINE Completed 03/28/2024, , 05/15/2022, Additional history exists HPV VACCINES Aged Out No longer eligi ble based on patient's age to complete this topic Medical Devices Implanted Type Area Box Stamper Device Identifier Shelf Expiration Date Model / Serial / Lot Barrier Interceed Adh 3x4in [id number] - [id number] Implanted:Qt y: 1 on 08/14/2023 by Yaw Mendez MD at [facility] Adhesion Barrier N/A: Abdomen [employer] [id number] 08/23/2027 [id number] / / [id number] Procedures Procedure Name Priority Date/Time Associated Diagnosis Comments MAMMO 3D SUSHANT SCREEN BILAT W OR WO CAD Routine 08/11/2024 11:28 AM MINING PLANT OPERATOR Breast cancer screening by mammogram from Last 3 Months or Most Recently Relevant to Health Maintenance Results * MAMMO 3D SUSHANT SCREEN BILAT W OR WO CAD (08/11/2024 11:28 AM MINING PLANT OPERATOR) Anatomical Region Laterality Modality Breast Bilateral Mammography 08/11/2024 11:2 8 AM MINING PLANT OPERATOR Impressions 08/11/2024 11:33 AM MINING PLANT OPERATOR IMPRESSION: Negative. RECOMMENDATIONS: Bilateral annual screening mammogram OVERALL FINAL ASSESSMENT: BI-RADS CATEGORY 1 - Negative DICTATION LOCATION: [facility] 08/11/2024 11:33 AM MINING PLANT OPERATOR BILATERAL SCREENING DIGITAL MAMMOGRAMS WITH COMPUTER ASSISTED [...] Most Recently Relevant to Health Maintenance Insurance [employer] RX Member Subscriber Plan / Payer (Ef fective 2023-Present) Name:Selwyn Dee Relation to Subscriber:Spouse Subscriber ID:Not on file Payer ID:Not on file Type:RX Commercial Address: [address] RX ROWE PLANS (INTERNAL) [facility] Plans Advance Directives For more information, please contact: [phone] * Full Code (Latest Code Status on File) Date Activated Date Inactivated Comments 08/14/2023 12:17 PM 08/14/2023 5:41 PM * Full Code Date Activated Date Inactivated Comments 08/14/2023 9:00 AM 08/14/2023 12:16 PM Care Teams Extended Insurance Clerk Relationship Specialty Start Date End Date Rdoger Lee MD [address] [place] [phone] PCP - General Internal Medicine 06/15/16
--- OUTSIDE RECORDS SUMMARY | 2024-12-07 14:04 | XMS_ITS | Encounter Summary ---
Author Organization [facility] Address 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 [address] documented as of this encounter Procedures Procedure Name Priority Date/Time Associated Diagnosis Comments URINALYSIS WITH REFLEX CULTURE Routine 06/19/2005 10:57 PM WORKFORCE DEVELOPMENT SPECIALIST CBC WITH DIFFERENTIAL Routine 06/19/2005 10:57 PM WORKFORCE DEVELOPMENT SPECIALIST CBC WITH DIFFERENTIAL Routine 06/19/2005 10:57 PM WORKFORCE DEVELOPMENT SPECIALIST URINALYSIS W/REFLEX MICROSCOPIC Routine 06/19/2005 10:57 PM WORKFORCE DEVELOPMENT SPECIALIST URIC ACID Routine 06/19/2005 10:57 PM WORKFORCE DEVELOPMENT SPECIALIST AST Routine 06/19/2005 10:57 PM WORKFORCE DEVELOPMENT SPECIALIST LACTATE DEHYDROGENASE Routine 06/19/2005 10:57 PM WORKFORCE DEVELOPMENT SPECIALIST documented in this encounter Results * (ABNORMAL) URINALYSIS (06/19/2005 10:57 PM WORKFORCE DEVELOPMENT SPECIALIST) COLOR UA Yellow INTERFACE SYSTEM CLARITY [...] /HPF INTERFACE SYSTEM 06/19/2005 10:5 7 PM WORKFORCE DEVELOPMENT SPECIALIST us Renata Andre MD URINE ORDERABLES Final R esult INTERFACE SYSTEM Refer to clinic/hospital department * URINALYSIS WITH REFLEX CULTURE (06/19/2005 10:57 PM WORKFORCE DEVELOPMENT SPECIALIST) URINE CULTURE ORDER Culture ordered INTERFACE SYSTEM Comment: Criteria for a reflex culture include one or more of the following: Abn ormal nitrite, leukocyte esterase, WBCs or RBCs. Lack of qualifying criteria does not exclude the possiblity of a urinary tract infection. Dilute urine, drug interference, etc. may decrease the sensitivity of the criteria analytes. 06/19/2005 10:5 7 PM WORKFORCE DEVELOPMENT SPECIALIST Renata Andre MD URINE ORDERABLES Final R esult Performing Organization Address [facility] Co de Phone Number INTERFACE SYSTEM Refer to clinic/hospital department * (ABNORMAL) CBC WITH DIFFERENTIAL (06/19/2005 10:57 PM WORKFORCE DEVELOPMENT SPECIALIST) NEUTROPHILS 74(H) 45 - 70 % [...] K/uL INTERFACE SYSTEM 06/19/2005 10:5 7 PM WORKFORCE DEVELOPMENT SPECIALIST Renata Andre MD HEMATOLOGY ORDERABLES Fi nal Result Performing Organization Address [facility] de Phone Number INTERFACE SYSTEM Refer to clinic/hospital department * (ABNORMAL) CBC WITH DIFFERENTIAL (06/19/2005 10:57 PM WORKFORCE DEVELOPMENT SPECIALIST) WBC 12.3(H) 4.0 - 9.8 K/uL [...] fL INTERFACE SYSTEM 06/19/2005 10:5 7 PM WORKFORCE DEVELOPMENT SPECIALIST Renata Andre MD HEMATOLOGY ORDERABLES Fi nal Result INTERFACE SYSTEM Refer to clinic/hospital department * AST (06/19/2005 10:57 PM WORKFORCE DEVELOPMENT SPECIALIST) AST 17 12 - 32 U/L INTERFAC E SYSTEM 06/19/2005 10:5 7 PM WORKFORCE DEVELOPMENT SPECIALIST us Renata Andre MD CHEMISTRY ORDERABLES Fin al Result Performing Organization Address [facility] Co de Phone Number INTERFACE SYSTEM Refer to clinic/hospital department * LACTATE DEHYDROGENASE (06/19/2005 10:57 PM WORKFORCE DEVELOPMENT SPECIALIST) LD (LACTATE DEHYDROGENASE) 196 135 - 214 U/L INTERFACE SYSTEM 06/19/2005 10:5 7 PM WORKFORCE DEVELOPMENT SPECIALIST Renata Andre MD CHEMISTRY ORDERABLES Fin al Result Performing Organization Address [facility] Co de Phone Number INTERFACE SYSTEM Refer to clinic/hospital department * URIC ACID (06/19/2005 10:57 PM WORKFORCE DEVELOPMENT SPECIALIST) URIC ACID 5.6 2.3 - 6.6 mg/dL INTERFACE SYSTEM 06/19/2005 10:5 7 PM WORKFORCE DEVELOPMENT SPECIALIST Renata Andre MD CHEMISTRY ORDERABLES Fin al Result Performing Organization Address [facility] Co de Phone Number INTERFACE SYSTEM Refer to clinic/hospital department documented in this encounter Visit Diagnoses Diagnosis Other current maternal conditions classifiable elsewhere, antepartum- Primary documented in this encounter Care Teams Life Teacher Relationship Specialty Start Date End Date Rodger Lee MD [address] [place] [phone] PCP - General Internal Medicine 06/15/16 documented as of this encounter
--- OUTSIDE RECORDS SUMMARY | 2024-12-07 14:04 | XMS_ITS | Encounter Summary ---
Author Organization [facility] Address [address] [place] [address] Care Team Providers Care Dresser Tender Name Role Phone Rodger Lee MD Primary Care Provider [phone] Encounter Details Date Type Department Care Team [...] on file Legal Sex Female 4:56 AM ROLL TENDER Gender Identity Not on file Sexual Orientation Not on file documented as of this encounter Plan of Treatment Upcoming Encounters Date Type Department Care Team (Late st Contact Info) Description 01/14/2025 2:30 PM CDT Office Visit [facility] POST OFFICE MANAGER - [address] [phone] Jarett Mcmahon MD [address] [address] documented as of this encounter Procedures Procedure Name Priority Date/Time Associated Diagnosis Comments CBC WITH DIFFERENTIAL Stat 01/12/2009 4:12 AM CDT C-REACTIVE PROTEIN Stat 01/12/2009 4: 12 AM CDT COMPREHENSIVE METABOLIC PANEL Stat 01/12/2009 4:12 AM CDT documented in this encounter Results * CBC WITH DIFFERENTIAL (01/12/2009 4:12 AM CDT) RBC 4.69 3.90 - 4.90 M/uL [facility] MCHC 33.8 31.5 - 35.5 % [facility] MCV 83.2 82.0 - 99.0 fL [facility] PLATELETS 242 140 - 350 K/uL [facility] HEMOGLOBIN 13.2 11.8 - 14.8 g/dL [facility] RDW 13.3 11.5 - 14.5 % [facility] WBC 7.0 4.0 - 9.8 K/uL [facility] MCH 28.1 27.2 - 32.6 pg [facility] MPV 11.6 9.3 - 12.4 fL [facility] HEMATOCRIT 39.0 35.5 - 44.0 % [facility] RDW-STDEV 39.8 37.1 - 48.7 fL [facility] NEUTROPHILS 69 45 - 70 % [facility] NEUTROPHIL ABSOLUTE 4.81 1.90 - 7.00 K/uL [facility] EOSINOPHILS 1 0 - 7 % [facility] EOSINOPHIL ABSOLUTE 0.04 0.00 - 0.70 K/uL [facility] LYMPHOCYTES 25 16 - 45 % [facility] LYMPHOCYTE ABSOLUTE 1.72 0.70 - 4.50 K/uL [facility] BASOPHILS 0 0 - 2 % [facility] BASOPHILS ABSOLUTE 0.03 0.00 - 0.20 K/uL [facility] MONOCYTES 6 3 - 13 % [facility] MONOCYTE ABSOLUTE 0.39 0.10 - 1.30 K/uL [facility] 01/12/2009 4:12 AM CDT 01/12/2009 4:35 AM CDT Gage Monk MD HEMATOLOGY ORDERABLES E dited Performing Organization Address [facility] de Phone Number INTERFACE SYSTEM Refer to clinic/hospital department [facility] CLIA# [id number] [address] [place] [id number] * C-REACTIVE PROTEIN (01/12/2009 4:12 AM CDT) CRP 0.7 0.0 - 0.8 mg/dL [facility] 01/12/2009 4:12 AM CDT 01/12/2009 4:35 AM CDT Result [facility] Gage Monk MD CHEMISTRY ORDERABLES Fi nal Result Performing Organization Address [facility] Phone Number INTERFACE SYSTEM Refer to clinic/hospital department [facility] CLIA# [id number] [address] [place] [id number] * (ABNORMAL) COMPREHENSIVE METABOLIC PANEL (01/12/2009 4:12 AM CDT) CALCIUM 9.4 8.6 - 10.2 mg/dL [facility] CHLORIDE 100 96 - 108 mmol/L [facility] ALBUMIN 4.6 3.4 - 4.8 g/dL [facility] CREATININE 0.83 0.51 - 0.95 mg/dL [facility] SODIUM 136 135 - 145 mmol/L [facility] ALT 22 0 - 31 U/L [facility] ALKALINE PHOSPHATASE 63 35 - 104 U/L [facility] BILIRUBIN TOTAL 1.1(H) 0.2 - 1.0 mg/dL [facility] CO2 25 22 - 30 mmol/L [facility] TOTAL PROTEIN 8.0 6.3 - 8.6 g/dL [facility] POTASSIUM 3.2(L) 3.5 - 4.9 mmol/L [facility] GLUCOSE 99 65 - 99 mg/dL [facility] AST 19 12 - 32 U/L [facility] BUN 11 6 - 20 mg/dL [facility] GFR, >60 >=60 mL/min/1. 7 sq meter [facility] GFR >60 >=60 mL/min/1. 7 sq meter [facility] Comment: Modification of Diet in Renal Disease (MDRD) study formula. Estimated GFR rate interpretative information for both Americans and non- Americans is available on the [facility] at: [email or web address] Select: Lab Policies and Procedures Select: Reference Ranges - GFR 01/12/2009 4:12 AM CDT 01/12/2009 4:35 AM CDT Gage Monk MD CHEMISTRY ORDERABLES Ed ited INTERFACE SYSTEM Refer to clinic/hospital department [facility] CLIA# [id number] [place] [id number] documented in this encounter Visit Diagnoses Not on filedocumented in this encounter Care Teams Dresser Tender Relationship Specialty Start Date End Date Rodger Lee MD [address] [place] [address] [place] [phone] PCP - General Internal Medicine 06/15/16 documented as of this encounter
--- OUTSIDE RECORDS SUMMARY | 2024-12-07 14:04 | XMS_ITS | Clinical Summary ---
Author Organization [facility] Address [address] [place] [address] Care Team Providers Care Laser Set Up Operator Name Role Phone Unavailable Primary Care Provider Unavailabl e Source Comments [facility],non-owned Affiliates and Associated Physician Practices is amultiple site organization consisting of ambulatory clinics and hospital sitesin [place], [place] and [place]. This disclosure is being madepursuant to the Care Everywhere program and may not contain all information available regarding this patient. Last updated 18.[facility] Social History Tobacco Use Types Packs/Day Years [...]
--- OUTSIDE RECORDS SUMMARY | 2024-12-07 14:04 | XMS_ITS | Encounter Summary ---
Author Organization [facility] Address [address] [place] [address] Care Team Providers Care Mold Maker Plaster Name Role Phone Rodger Lee MD Primary Care Provider [phone] Encounter Details Date Type Department Care Team (Latest Contact Info) Description 09/13/2008 Outpatient Historical [facility] Jarett Mcmahon MD [address] [address] Other Specified Complication, Antepartum Social History Tobacco Use Types Packs/Day Years Used Date Smoking Tobacco: Never Assessed Comments Unknown Sex and Gender Information Value Date Recorded Sex Assigned at Not on file Legal Sex Female 4:56 AM ACCOUNTANT PROPERTY Gender Identity Not on file Sexual Orientation Not on file documented as of this encounter Plan of Treatment Upcoming Encounters Date Type Department Care Team (Late st Contact Info) Description 01/14/2025 2:30 PM CDT Office Visit [facility] FINANCIAL INVESTMENT ADVISER - [address] [address] Jarett Mcmahon MD [address] [address] documented as of this encounter [...] antepartum documented in this encounter Care Teams Mold Maker Plaster Relationship Specialty Start Date End Date Rodger Lee MD [address] [place] [phone] PCP - General Internal Medicine 06/15/16 documented as of this encounter
--- OUTSIDE RECORDS SUMMARY | 2024-12-07 14:04 | XMS_ITS | Encounter Summary ---
Author Organization [facility] Address [address] [place] [address] Care Team Providers Care Travel Accommodations Rater Name Role Phone Rodger Lee MD Primary Care Provider [phone] Encounter Details Date Type Department Care Team (Late st Contact Info) Description 12/16/2008 Outpatient Historical [facility] Yazan Mcmahon MD [address] [address] Social History Tobacco Use Types Packs/Day Years Used Date Smoking Tobacco: Never Assessed Comments Unknown Sex and Gender Information Value Date Recorded Sex Assigned at Not on file Legal Sex Female 4:56 AM ICE DELIVERY DRIVER Gender Identity Not on file Sexual Orientation Not on file documented as of this encounter Plan of Treatment Upcoming Encounters Date Type Department Care Team (Late st Contact Info) Description 01/14/2025 2:30 PM CDT Office Visit [facility] QUOTER [address] [address] Yazan Mcmahon MD [address] [address] documented as of this encounter [...] CDT) CALCIUM 8.6 8.6 - 10.2 mg/dL [facility] CO2 26 22 - 30 mmol/L [facility] CREATININE 0.79 0.51 - 0.95 mg/dL [facility] POTASSIUM 4.0 3.5 - 4.9 mmol/L [facility] BUN 8 6 - 20 mg/dL [facility] CHLORIDE 107 96 - 108 mmol/L [facility] GLUCOSE 97 65 - 99 mg/dL [facility] SODIUM 141 135 - 145 mmol/L [facility] GFR, >60 >=60 mL/min/1.7 sq meter [facility] GFR >60 >=60 mL/min/1.7 sq meter [facility] Comment: Modification of Diet in Renal Disease (MDRD) study formula. Estimated GFR rate interpretative information for both Americans and non- Americans is available on the [facility] Intranet at: [email or web address] Select: Lab Policies and Procedures Select: Reference Ranges - GFR 01/13/2009 5:58 AM CDT 01/13/2009 6:17 AM CDT Yazan Mcmahon MD CHEMISTRY ORDERABLES Edit ed INTERFACE SYSTEM Refer to clinic/hospital department [facility] CLIA# [id number] [address] [place] [address] * (ABNORMAL) CBC WITH DIFFERENTIAL (01/13/2009 5:58 AM CDT) MCV 86.8 82.0 - 99.0 fL [facility] PLATELETS 229 140 - 350 K/uL [facility] HEMOGLOBIN 10.5(L) 11.8 - 14.8 g/dL [facility] RDW 13.6 11.5 - 14.5 % [facility] WBC 9.1 4.0 - 9.8 K/uL [facility] MCH 27.7 27.2 - 32.6 pg [facility] MPV 11.8 9.3 - 12.4 fL [facility] HEMATOCRIT 32.9(L) 35.5 - 44.0 % [facility] RDW-STDEV 43.0 37.1 - 48.7 fL [facility] RBC 3.79(L) 3.90 - 4.90 M/uL [facility] MCHC 31.9 31.5 - 35.5 % [facility] EOSINOPHILS 0 0 - 7 % [facility] EOSINOPHIL ABSOLUTE 0.00 0.00 - 0.70 K/uL [facility] LYMPHOCYTES 13(L) 16 - 45 % [facility] LYMPHOCYTE ABSOLUTE 1.20 0.70 - 4.50 K/uL [facility] BASOPHILS 0 0 - 2 % [facility] BASOPHILS ABSOLUTE 0.01 0.00 - 0.20 K/uL [facility] MONOCYTES 8 3 - 13 % [facility] MONOCYTE ABSOLUTE 0.75 0.10 - 1.30 K/uL [facility] NEUTROPHILS 79(H) 45 - 70 % [facility] NEUTROPHIL ABSOLUTE 7.17(H) 1.90 - 7.00 K/uL [facility] 01/13/2009 5:58 AM CDT 01/13/2009 6:17 AM CDT us Yazan Mcmahon MD HEMATOLOGY ORDERABLES Israel bryan INTERFACE SYSTEM Refer to clinic/hospital department [facility] CLIA# [id number] [address] [place] [address] * CYTOLOGY, NON GYNE (01/12/2009 10:35 AM CDT) PATHOLOGY/CYT OLOGY REPORT [address] [address] Patient: SELWYN DEE : 1980 Procedure Date: 01/12/2009 Accession Date: 01/12/2009 Case No: [id number] Ordering Dr: YAZAN GALVAN Case type SW is performed by [place], [place]; all other case types are performed by [facility], [place], [place] SURGICAL PATHOLOGY & NON-GYNECOLOGIC CYTOPATHOLOGY REPORT DIAGNOSIS: ABDOMINAL CAVITY, PELVIC WASHINGS, CYTOLOGY AND CELL BLOCK: - NO ATYPICAL CELLS SEEN. Specimen Description: Pelvic washings. Operative Procedure: Pelvic washings. Patient Information/Histor y/Diagnosis: Focal endocervical adenocarcinoma in situ. Gross: Received is 33 mL of red fluid. A ThinPrep and a cell block are prepared. [facility] 01.13.2009 06:03 am Microscopic: The ThinPrep and cell block sections contain only a few scattered mesothelial cells and histiocytes mixed with blood. No definite malignant cells are identified. [facility] 01.13.2009 06:03 am Staging Form: No. ELECTRONIC SIGNATURE FOR LEN BERRIOS M.D.- 01/13/09 10:15 am INTERFACE SYSTEM 01/12/2009 10:3 5 AM CDT us Yazan Mcmahon MD PATHOLOGY/CYTOLOGY ORDERA BLES Final Result INTERFACE SYSTEM Refer to clinic/hospital department * PATHOLOGY (01/12/2009 10:31 AM CDT) FINAL REPORT [address] [address] Patient: SELWYN DEE : 1980 Procedure Date: 01/12/2009 Accession Date: 01/12/2009 Case No: [id number] Ordering Dr: YAZAN GALVAN Case type SW is performed by [place], [place]; all other case types are performed by [facility], [place], [place] SURGICAL PATHOLOGY & NON-GYNECOLOGIC CYTOPATHOLOGY REPORT [...] 1.8-cm thick myometrium is pink-belcher and unremarkable. Assembly Cleaner sections are submitted as follows: G4-U7-gshaosfsxenz canal from 12-3 o'clock; B8-T9-pyobrnsfeuad canal from 3-6 o'clock; J2-U2-wsrmardfusbc canal from 6-9 o'clock; A62-E99-uklzusxkhg al canal from 9-12 o'clock; A13- anterior endomyometrium; K00-jipcespzl endomyometrium. [facility] 01.12.2009 08:04 pm Microscopic: Received are slides labeled [id number], Selwyn Dee. Sections of uterine cervix identify [...] Staging Form: No. ELECTRONIC SIGNATURE FOR ASIF JANE M.D.- 01/13/09 05:02 pm INTERFACE SYSTEM 01/12/2009 10:3 1 AM CDT us Yazan Mcmahon MD PATHOLOGY/CYTOLOGY ORDERA BLES Final Result INTERFACE SYSTEM Refer to clinic/hospital department * POC , URINE (01/12/2009 6:31 AM CDT) CLIA LICENSE [id number] INTERF ARCHIE SYSTEM , URINE POC Negative Negative INTERFACE SYSTEM 01/12/2009 6:31 AM CDT 01/12/2009 6:31 AM CDT Yazan Mcmahon MD POINT OF CARE TESTING Fin al Result INTERFACE SYSTEM Refer to clinic/hospital department * (ABNORMAL) BASIC METABOLIC PANEL (01/08/2009 2:49 PM CDT) SODIUM 139 135 - 145 mmol/L [facility] CO2 25 22 - 30 mmol/L [facility] CALCIUM 9.9 8.6 - 10.2 mg/dL [facility] CREATININE 0.93 0.51 - 0.95 mg/dL [facility] POTASSIUM 3.7 3.5 - 4.9 mmol/L [facility] BUN 14 6 - 20 mg/dL [facility] CHLORIDE 103 96 - 108 mmol/L [facility] GLUCOSE 61(L) 65 - 99 mg/dL [facility] GFR, >60 >=60 mL/min/1.7 sq meter [facility] GFR >60 >=60 mL/min/1.7 sq meter [facility] Comment: Modification of Diet in Renal Disease (MDRD) study formula. Estimated GFR rate interpretative information for both Americans and non- Americans is available on the [facility] Intranet at: [email or web address] Select: Lab Policies and Procedures Select: Reference Ranges - GFR 01/08/2009 2:49 PM CDT 01/08/2009 4:36 PM CDT Yazan Mcmahon MD CHEMISTRY ORDERABLES Edit ed INTERFACE SYSTEM Refer to clinic/hospital department [facility] CLIA# [id number] [address] [place] [address] * CBC WITH DIFFERENTIAL (01/08/2009 2:49 PM CDT) HEMOGLOBIN 13.1 11.8 - 14.8 g/dL [facility] RDW 13.4 11.5 - 14.5 % [facility] WBC 6.4 4.0 - 9.8 K/uL [facility] MCH 28.4 27.2 - 32.6 pg [facility] MPV 12.3 9.3 - 12.4 fL [facility] HEMATOCRIT 38.9 35.5 - 44.0 % [facility] RDW-STDEV 40.7 37.1 - 48.7 fL [facility] RBC 4.62 3.90 - 4.90 M/uL [facility] MCHC 33.7 31.5 - 35.5 % [facility] MCV 84.2 82.0 - 99.0 fL [facility] PLATELETS 269 140 - 350 K/uL [facility] MONOCYTES 5 3 - 13 % [facility] MONOCYTE ABSOLUTE 0.30 0.10 - 1.30 K/uL [facility] NEUTROPHIL ABSOLUTE 3.63 1.90 - 7.00 K/uL [facility] EOSINOPHILS 1 0 - 7 % [facility] EOSINOPHIL ABSOLUTE 0.07 0.00 - 0.70 K/uL [facility] LYMPHOCYTES 37 16 - 45 % [facility] LYMPHOCYTE ABSOLUTE 2.40 0.70 - 4.50 K/uL [facility] NEUTROPHILS 57 45 - 70 % [facility] BASOPHILS 0 0 - 2 % [facility] BASOPHILS ABSOLUTE 0.02 0.00 - 0.20 K/uL [facility] 01/08/2009 2:49 PM CDT 01/08/2009 4:36 PM CDT Yazan Mcmahon MD HEMATOLOGY ORDERABLES Israel bryan Performing Organization Address City/[facility] de Phone Number INTERFACE SYSTEM Refer to clinic/hospital department [facility] CLIA# [id number] [address] [place] [address] * TYPE AND SCREEN (01/08/2009 2:45 PM CDT) SPECIMEN LIFE 3 days from OR date [facility] HISTORY CHECK History Checked [facility] ABO/RH TYPE O Positive [facility] ANTIBODY SCREEN Negative [facility] 01/08/2009 2:45 PM CDT Result [facility] Yazan Mcmahon MD BLOOD BANK ORDERABLES Israel bryan Performing Organization Address [facility] de Phone Number INTERFACE SYSTEM Refer to clinic/hospital department [facility] CLIA# [id number] [address] [place] [address] documented in this encounter Visit Diagnoses Not on filedocumented in this encounter Care Teams Travel Accommodations Rater Relationship Specialty Start Date End Date Rodger Lee MD [address] [place] [phone] PCP - General Internal Medicine 06/15/16 documented as of this encounter
--- OUTSIDE RECORDS SUMMARY | 2024-12-07 14:04 | XMS_ITS | Encounter Summary ---
Author Organization [facility] Address [address] [place] [address] Care Team Providers Care Electrolysist Name Role Phone Rodger Lee MD Primary Care Provider [phone] Encounter Details Date Type Department Care Team (Latest Contact Info) Description 08/12/2008 Outpatient Historical [facility] Jarett Mcmahon MD [address] [address] Other Specified Complication, Antepartum; Unspecified Hypothyroidism Social History Tobacco Use Types Packs/Day Years Used Date Smoking Tobacco: Never Assessed Comments Unknown Sex and Gender Information Value Date Recorded Sex Assigned at Not on file Legal Sex Female 4:56 AM PEDIATRIC DIETICIAN Gender Identity Not on file Sexual Orientation Not on file documented as of this encounter Plan of Treatment Upcoming Encounters Date Type Department Care Team (Late st Contact Info) Description 01/14/2025 2:30 PM CDT Office Visit [facility] PUBLICITY MANAGER [address] [address] Jarett Mcmahon MD [address] [address] documented as of this encounter Procedures Procedure Name Priority Date/Time Associated Diagnosis Comments US BIOPHYSICAL PROF W NST Timed Study 09/08/2008 11:26 AM CDT US OB LTD 1 OR MORE FETUSES Timed Study 09/08/2008 11:26 AM CDT US OB LTD 1 OR MORE FETUSES Timed Study 08/12/2008 10:24 AM PEDIATRIC DIETICIAN documented in this encounter Results * US [...] 1 OR MORE FETUSES (08/12/2008 10:24 AM PEDIATRIC DIETICIAN) Anatomical Region Laterality Modality Pelvis Other Narrative 08/12/2008 10:24 AM PEDIATRIC DIETICIAN Results in [employer] Procedure Note 12/31/2008 Results in [employer] us Jarett Mcmahon MD US ORDERABLES Final Res ult documented in this encounter Visit Diagnoses Diagnosis Other specified complication, antepartum(646.83) Other specified complication, antepartum Unspecified hypothyroidism documented in this encounter Care Teams Electrolysist Relationship Specialty Start Date End Date Rodger Lee MD [address] [place] [phone] PCP - General Internal Medicine 06/15/16 documented as of this encounter
--- OUTSIDE RECORDS SUMMARY | 2024-12-07 14:04 | XMS_ITS | Encounter Summary ---
Author Organization [facility] Address [address] [place] [address] Care Team Providers Care Honing Machine Operator Tool Name Role Phone Rodger Lee MD Primary Care Provider [phone] Encounter Details Date Type Department Care Team (Latest Contact Info) Description 10/15/2008 Outpatient Historical [facility] Jraett Mcmahon MD [address] [address] Other Specified Complication, Antepartum Social History Tobacco Use Types Packs/Day Years Used Date Smoking Tobacco: Never Assessed Comments Unknown Sex and Gender Information Value Date Recorded Sex Assigned at Not on file Legal Sex Female 4:56 AM PERSONAL LINES ADVISOR Gender Identity Not on file Sexual Orientation Not on file documented as of this encounter Plan of Treatment Upcoming Encounters Date Type Department Care Team (Late st Contact Info) Description 01/14/2025 2:30 PM CDT Office Visit [facility] HAND CUTTER APPRENTICE [address] [address] Jarett Mcmahon MD [address] [address] documented as of this encounter Visit Diagnoses Diagnosis Other specified complication, antepartum(646.83) Other specified complication, antepartum documented in this encounter Care Teams Honing Machine Operator Tool Relationship Specialty Start Date End Date Rodger Lee MD [address] [place] [phone] PCP - General Internal Medicine 06/15/16 documented as of this encounter
--- OUTSIDE RECORDS SUMMARY | 2024-12-07 14:04 | XMS_ITS | Encounter Summary ---
Author Organization [facility] Address [address] [place] [address] Care Team Providers Care Agronomy Instructor Name Role Phone Unavailable Primary Care Provider Unavailabl e Encounter Details Date Type Department Care Team (Late st Contact Info) Description 11/16/2021 Lab Requisition [facility] Derm[facility] [address] [place] [address] Izaiah Richter MD [address] [place] [address] Social History Tobacco Use Types [...] AM CDT) Case Report Dermatopathology Report Case: [id number] Authorizing Provider: Izaiah Richter MD Collected: 11/14/2021 12:00 AM Ordering Location: [facility] D[facility] Lab Received: 11/16/2021 06:06 AM Pathologist: Romi Ordaz MD Specimen: Skin, right nasal tip 2 2:49 PM CDT DERMATOPATHOLOGY LABORATORY Final Diagnosis Specimen A. SKIN, right nasal tip: ANGIOFIBROMA (FIBROUS PAPULE) (D21.0) (see microscopic description) 2 2:49 PM CDT DERMATOPATHOLOGY LABORATORY at 1449 CDT Clinical History BCCA vs fibrous papule. Path # [id number]. 2 2:49 PM CDT DERMATOPATHOLOGY LABORATORY Gross Description Specimen A: Received is one formalin filled container labeled with the patient's name and designated right nasal tip. The specimen consists of a shave biopsy measuring [id number]. Jar 0. 2:49 PM CDT DERMATOPATHOLOGY LABORATORY [...] characteristic determined by the Dermatopathology Laboratory at [facility], directed by Dr. Kwabena Rubi. These tests need not be, and therefore are not, approved by the [place] Food and Drug Administration. The tests are used for clinical purposes. Billing Codes Specimen Charges Stain Charges 10557 1 2 2:49 PM CDT DERMATOPATHOLOGY LABORATORY Embedded Images 2 2:49 PM CDT DERMATOPATHOLOGY LABORATORY Pathology/Cytolog y TISSUE SPECIMEN FROM SKIN / Unknown 11/14/2021 11/16/2021 6:06 AM CDT us Izaiah Richter MD LAB - PATHOLOGY/CYTOLOGY ORDER SHADY Final Result DERMATOPATHOLOGY LABORATORY [facility] - Department of Dermatology [address] [place] [address], [facility] [phone] documented in this encounter Visit Diagnoses Not on filedocumented in this encounter
--- OUTSIDE RECORDS SUMMARY | 2024-12-07 14:04 | XMS_ITS | Encounter Summary ---
Author Organization [facility] Address [address] [place] [address] Care Team Providers Care Motor Generator Set Operator Name Role Phone Rodger Lee MD Primary Care Provider [phone] Encounter Details Date Type Department Care Team (Late st Contact Info) Description 11/23/2008 Outpatient Historical [facility] Yazan Mcmahon MD [address] [address] Social History Tobacco Use Types Packs/Day Years Used Date Smoking Tobacco: Never Assessed Comments Unknown Sex and Gender Information Value Date Recorded Sex Assigned at Not on file Legal Sex Female 4:56 AM TIME BROKER Gender Identity Not on file Sexual Orientation Not on file documented as of this encounter Plan of Treatment Upcoming Encounters Date Type Department Care Team (Late st Contact Info) Description 01/14/2025 2:30 PM CDT Office Visit [facility] ORDNANCE MECHANIC [address] [address] Yazan Mcmahon MD [address] [address] documented as of this encounter Procedures Procedure Name Priority Date/Time Associated Diagnosis Comments PATHOLOGY Routine 11/24/2008 11:21 AM CDT POC , URINE Routine 11/24/2008 9:20 AM CDT HEMOGLOBIN AND HEMATOCRIT Stat 11/24/2008 8:32 AM CDT documented in this encounter Results * PATHOLOGY (11/24/2008 11:21 AM CDT) FINAL REPORT [facility] [address], [place] [address] Patient: SELWYN DEE : 1980 Procedure Date: 11/24/2008 Accession Date: 11/24/2008 Case No: [id number] Ordering Dr: YAZAN GALVAN Case types AW, BW, FW, NW and SH are performed by [facility], [place], [place] SURGICAL PATHOLOGY & NON-GYNECOLOGIC CYTOPATHOLOGY REPORT [...] 04:08 pm Microscopic: The slides are labeled [id number] and Selwyn Dee. The cervical conization includes [...] ORDERA BLES Final Result Performing Organization Address [facility] de Phone Number INTERFACE SYSTEM Refer to clinic/hospital department * POC , URINE (11/24/2008 9:20 AM CDT) , URINE POC Negative Negative [facility] 11/24/2008 9:20 AM CDT 11/24/2008 9:20 AM CDT us Yazan Mcmahon MD POINT OF CARE TESTING Fin al Result Performing Organization Address [facility] de Phone Number INTERFACE SYSTEM Refer to clinic/hospital department [facility] CLIA# [id number] [address] [facility] [place] [address] * HEMOGLOBIN AND HEMATOCRIT (11/24/2008 8:32 AM CDT) HEMOGLOBIN 12.6 11.8 - 14.8 g/dL [facility] HEMATOCRIT 38.5 35.5 - 44.0 % [facility] 11/24/2008 8:32 AM CDT 11/24/2008 9:21 AM CDT Narrative INTERFACE SYSTEM - 11/24/2008 9:30 AM CDT RM 12 us Yazan Mcmahon MD HEMATOLOGY ORDERABLES Fin al Result INTERFACE SYSTEM Refer to clinic/hospital department [facility] CLIA# [id number] [address] [place] [address] documented in this encounter Visit Diagnoses Not on filedocumented in this encounter Care Teams Motor Generator Set Operator Relationship Specialty Start Date End Date Rodger Lee MD [address] [place] [phone] PCP - General Internal Medicine 06/15/16 documented as of this encounter
--- OUTSIDE RECORDS SUMMARY | 2024-12-07 14:04 | XMS_ITS | Encounter Summary ---
Author Organization [facility] Address [address] [place] [address] Care Team Providers Care Auditor Internal Name Role Phone Rodger Croft MD Primary Care Provider [phone] Encounter Details Date Type Department Care Team [...] on file Legal Sex Female 4:56 AM MEDICAL OFFICE PROFESSIONAL INSTRUCTOR Gender Identity Not on file Sexual Orientation Not on file documented as of this encounter Plan of Treatment Upcoming Encounters Date Type Department Care Team (Late st Contact Info) Description 01/14/2025 2:30 PM CDT Office Visit [facility] MILLED RUBBER TENDER - [address] [phone] Jarett Mcmahon MD [address] [address] documented as of this encounter [...] Result [facility] CLIA# [id number] [address] [place] [address] * BLOOD CULTURE (01/16/2009 8:10 PM CDT) PRELIMINARY REPORT No growth to date. Culture in progress [facility] FINAL REPORT No growth 5 days [facility] Blood specimen (specimen) 01/16/2009 8:10 PM CDT 01/16/2009 8:15 PM CDT us Miki Sheffield MD MICROBIOLOGY - GENERAL ORDERABL ES Final Result [facility] CLIA# [id number] [address] [place] [address] * XR CHEST PA AND LATERAL (01/16/2009 8:10 PM CDT) Anatomical Region Laterality Modality Chest Other 01/16/2009 8:10 PM CDT Narrative 01/16/2009 9:22 PM CDT [facility] [address] [place], [place] [address] Admit Date: 01/16/2009 SELWYN DEE Sex: F Admit Prov: ER, AUTHORIZED P Date: 1980 Primary Care Prov: CROFT RODGER L CMRN: [id number] Room: ER-A N: [id number] IMAGING SERVICES Ordering Prov: N/A Accession Number: [id number] Interpretation TWO-VIEW CHEST, 01/16/2009 HISTORY: Fever, postoperative. FINDINGS: There are no comparison films. The lungs are fully inflated and clear. There are no effusions. The heart and mediastinum are within normal limits. IMPRESSION: Negative heart and lungs. . Dictated by: PRATIMA ROMERO 01/16/2009 20:19 Electronically signed by: PRATIMA ROMERO 01/16/2009 21:21 Transcribed: 01/16/2009 20:22 SJ Procedure Note Pratima Romero - 01/16/2009 [facility] [address] [place], [place] [address] Admit Date: 01/16/2009 SELWYN DEE Sex: F Admit Prov: ER, AUTHORIZED P Date: 1980 Primary Care Prov: LANG RODGER L CMRN: [id number] Room: ER-A SSN: [id number] IMAGING SERVICES Ordering Prov: N/A Interpretation TWO-VIEW [...] PM CDT FINAL - Order Information Only [address] [address] Admit Date: 01/16/2009 SELWYN DEE Sex: F Admit Prov: ER, AUTHORIZED P Date: 1980 Primary Care Prov: RODGER CROFT CMRN: [id number] Room: ER-A SSN: [id number] IMAGING SERVICES Ordering Prov: N/A Accession Number: [id number] Interpretation TWO-VIEW CHEST, 01/16/2009 HISTORY: Fever, postoperative. FINDINGS: There are no comparison films. The lungs are fully inflated and clear. There are no effusions. The heart and mediastinum are within normal limits. Procedure Note Frank Delgado RN - 07/13/2015 FINAL - Order Information Only [address], [place] [address] Admit Date: 01/16/2009 SELWYN DEE Sex: F Admit Prov: ER, BABATUNDE P Date: 1980 Primary Care Prov: RODGER CROFT CMRN: [id number] Room: [facility] SSN: [id number] IMAGING SERVICES Ordering Prov: N/A Interpretation TWO-VIEW [...] lt [facility] CLIA# [id number] [address] [place] [place] [address] * COMPREHENSIVE METABOLIC PANEL (01/16/2009 7:29 PM CDT) CALCIUM 9.1 8.6 - 10.2 mg/dL [facility] ALBUMIN 4.3 3.4 - 4.8 g/dL [facility] CHLORIDE 103 96 - 108 mmol/L [facility] CREATININE 0.83 0.51 - 0.95 mg/dL [facility] ALT 20 0 - 31 U/L [facility] SODIUM 141 135 - 145 mmol/L [...] and non- Americans is available on the [facility] Intranet at: [email or web address] Select: Lab Policies and Procedures Select: Reference Ranges - GFR 01/16/2009 7:29 PM CDT 01/16/2009 7:47 PM CDT us Miki Sheffield MD CHEMISTRY ORDERABLES Edited [facility] CLIA# [id number] [address] [place] [address] * (ABNORMAL) CBC WITH DIFFERENTIAL (01/16/2009 7:29 [...] LAB LYMPHOCYTES 25 16 - 45 % [facility] LYMPHOCYTE ABSOLUTE 1.81 0.70 - 4.50 [...] LAB NEUTROPHILS 68 45 - 70 % [facility] NEUTROPHIL ABSOLUTE 4.84 1.90 - 7.00 K/uL [facility] EOSINOPHILS 2 0 - 7 % [facility] EOSINOPHIL ABSOLUTE 0.13 0.00 - 0.70 K/uL [facility] 01/16/2009 7:29 PM CDT 01/16/2009 7:47 PM CDT Miki Sheffield MD HEMATOLOGY ORDERABLES Edited Performing Organization Address [facility]/ZIP Co de Phone Number [facility] CLIA# [id number] [address] [place] [address] * ED HOLD (01/16/2009 7:29 PM CDT) SPECIMEN HOLD, BLOOD 7 days [facility] Blood specimen (specimen) 01/16/2009 7:29 PM CDT 01/16/2009 7:47 PM CDT us Miki Sheffield MD CHEMISTRY ORDERABLES Final Resu lt Performing Organization Address [facility] Co de Phone Number [facility] CLIA# [id number] [address] [place] [address] documented in this encounter Visit Diagnoses Not on filedocumented in this encounter Care Teams Auditor Internal Relationship Specialty Start Date End Date Rodger Croft MD [address] [place], [place] [id number] PCP - General Internal Medicine 06/15/16 documented as of this encounter
[2024-12-07 14:08] VITALS: BP 128/89; PULSE 95; RESP 18; TEMP 36.7; O2SAT 99
== END 2024-12-07 14:27 | disposition home or self-care (01) ==
PROVIDERS: Emergency Provider Nurse Practitioner; PCP Nurse Practitioner Family
DX: J32.9 Chronic sinusitis, unspecified (principal); J40 Bronchitis, not specified as acute or chronic; F41.9 Anxiety disorder, unspecified
CPT/HCPCS: 99213; G0463

== ENCOUNTER 2025-01-08 09:39 | Emergency (ER) | payer OTHER, SELFPAY ==
--- OUTSIDE RECORDS SUMMARY | 2025-01-08 09:42 | XMS_ITS | Encounter Summary ---
Author Organization [facility] Address [address] [place] [address] Care Team Providers Care Floral Specialist Name Role Phone Rodger Lee MD Primary Care Provider [phone] Encounter Details Date Type Department Care Team (Late st Contact Info) Description 10/02/2008 Outpatient Historical [facility] Jarett Mcmahon MD 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 [address] documented as of this encounter Procedures Procedure Name Priority Date/Time Associated Diagnosis Comments TYPE AND SCREEN Routine 10/02/2008 4:15 AM CDT HIV RAPID SCREEN Stat 10/02/2008 4:10 AM CDT CBC WITH DIFFERENTIAL Stat 10/02/2008 4:10 AM CDT documented in this encounter Results * TYPE AND SCREEN (10/02/2008 4:15 AM CDT) HISTORY CHECK No Historical ABO/Rh [facility] ABO/RH TYPE O Positive [facility]CIMEN LIFE [address] [facility] ANTIBODY SCREEN Negative [facility] Blood specimen (specimen) 10/02/2008 4:15 AM CDT us Jarett Mcmahon MD BLOOD BANK ORDERABLES Israel bryan Performing Organization Address [facility] Phone Number INTERFACE SYSTEM Refer to clinic/hospital department [facility] CLIA# [id number] [address] [place] [address] * HIV RAPID SCREEN (10/02/2008 4:10 AM CDT) RAPID HIV SCREEN Nonreactive Nonreactive [facility] Comment:Results called to Oleg garza at 10/02/08 08:37 and read back verified. Blood specimen (specimen) 10/02/2008 4:10 AM CDT 10/02/2008 7:56 AM CDT Narrative INTERFACE SYSTEM - 10/02/2008 8:37 AM CDT blood in lab us Jarett Mcmahon MD CHEMISTRY ORDERABLES Radha l Result Performing Organization Address [facility] de Phone Number INTERFACE SYSTEM Refer to clinic/hospital department [facility] CLIA# [id number] [address] [place] [address] * (ABNORMAL) CBC WITH DIFFERENTIAL (10/02/2008 4:10 AM CDT) MCV 87.4 82.0 - 99.[address] [facility] PLATELETS 170 140 - 350 K/uL [facility] HEMOGLOBIN 11.5(L) 11.8 - 14.8 g/dL [facility] RDW 14.1 11.5 - 14.5 % [facility] WBC 11.3(H) 4.0 - 9.8 K/uL [facility] MCH 29.0 27.2 - 32.[address] [facility] MPV 11.8 9.3 - 12.[address] [facility] HEMATOCRIT 34.7(L) 35.5 - 44.0 % [facility] RDW-STDEV 44.2 37.1 - 48.[address] [facility] RBC 3.97 3.90 - 4.90 M/uL [facility] MCHC 33.1 31.5 - 35.5 % [facility] EOSINOPHILS 1 0 - 7 % [facility] EOSINOPHIL ABSOLUTE 0.06 0.00 - 0.70 K/uL [facility] LYMPHOCYTES 19 16 - 45 % [facility] LYMPHOCYTE ABSOLUTE 2.15 0.70 - 4.50 K/uL [facility] BASOPHILS 0 0 - 2 % [facility] BASOPHILS ABSOLUTE 0.02 0.00 - 0.20 K/uL [facility] MONOCYTES 5 3 - 13 % [facility] MONOCYTE ABSOLUTE 0.51 0.10 - 1.30 K/uL [facility] NEUTROPHILS 76(H) 45 - 70 % [facility] NEUTROPHIL ABSOLUTE 8.52(H) 1.90 - 7.00 K/uL [facility] Blood specimen (specimen) 10/02/2008 4:10 AM CDT 10/02/2008 4:23 AM CDT us Jarett Mcmahon MD HEMATOLOGY ORDERABLES Israel bryan INTERFACE SYSTEM Refer to clinic/hospital department [facility] CLIA# [id number] [address] [place] [address] documented in this encounter Visit Diagnoses Not on filedocumented in this encounter Care Teams Floral Specialist Relationship Specialty Start Date End Date Rodger Lee MD [address] [place] [phone] PCP - General Internal Medicine 06/15/16 documented as of this encounter
--- OUTSIDE RECORDS SUMMARY | 2025-01-08 09:42 | XMS_ITS | Clinical Summary ---
Author Organization [facility] Address [address] [place] [address] Care Team Providers Care Unmanned Equipment Operator Name Role Phone Rachel Macias PA-C Primary Care Provider [phone] Allergies No known active allergies Medications FLUoxetine 20 MG capsule Take 1 capsule (20 mg total) by mouth daily. Active levothyroxine (SYNTHROID) 100 MCG tablet Take 1 tablet (100 mcg total) by mouth every morning. Active ALPRAZolam 1 MG tablet Take 1 tablet (1 mg total) by mouth 3 (three) times daily as needed for Sleep. Active zolpidem 10 MG tablet Take 1 tablet (10 mg total) by mouth nightly as needed for Sleep. Active Multiple Vitamins-Minera ls (MULTIVITAMIN ADULT OR) Active clotrimazole 1 % cream Apply topically 2 (two) times daily. 24 g 2 Active Additional Information Patient not taking.Reported on 12/11/2024 busPIRone (BUSPAR) 10 MG tablet Take 1 tablet (10 mg total) by mouth 2 (two) times daily. 3 Active Multiple Vitamin (DAILY VITES) Tab Take 1 tablet by mouth daily. Active valACYclovir (VALTREX) 500 MG tablet Take 1 tablet (500 mg total) by mouth daily. 3 Active ALPRAZolam (XANAX) 0.5 MG tablet Take 1 tablet (0.5 mg total) by mouth daily as needed. Active REXULTI 1 MG tablet 4 Active buPROPion XL (WELLBUTRIN XL) 150 MG 24 hr tablet TAKE 1 TABLET BY MOUTH ONCE DAILY FOR 7 DAYS THEN 2 ONCE DAILY 5 Active doxycycline monohydrate (ADOXA) 100 MG tablet Take 1 tablet (100 mg total) by mouth 2 (two) times daily. for 7 days 5 Active ipratropium (ATROVENT) 0.03 % nasal spray USE 2 SPRAY(S) IN EACH NOSTRIL THREE TIMES DAILY NEEDED FOR NASAL DRAINAGE 5 Active naloxone (NARCAN) 4 MG/0.1ML nasal spray CALL 911. ADMINISTER A SINGLE SPRAY INTRANASALLY INTO ONE NOSTRIL UPON SIGNS OF OPIOID OVERDOSE. MAY REPEAT AFTER 3 MINUTES IF NO RESPONSE. 4 Active promethazine-de xtromethorphan (PROMETHAZINE-D M) 6.25-15 mg/5mL syrup TAKE 5 ML BY MOUTH EVERY 4 TO 6 HOURS NEEDED FOR COUGH 5 Active EQ SINUS 12-HOUR 120 MG 12 hr tablet TAKE 1 TABLET BY MOUTH EVERY 12 HOURS NEEDED FOR NASAL CONGESTION 5 Active Albuterol-Budes onide (AIRSUPRA) 90-80 MCG/ACT AerosolIndicati ons:Acute cough,Wheeze,Br onchitis Inhale 2 puffs into the lungs every 4 (four) hours as needed. 32.1 g 3 5 Active predniSONE (DELTASONE) 20 MG tabletIndicatio ns:Bronchitis Take 2 tablets (40 mg total) by mouth every morning for 5 days. 10 tablet 5 025 benzonatate (TESSALON PERLES) 100 MG capsuleIndicati ons:Acute cough Take 2 capsules (200 mg total) by mouth 3 (three) times daily as needed. 20 capsule 5 025 levoFLOXacin (LEVAQUIN) 500 MG tabletIndicatio ns:Bronchitis Take 1 tablet (500 mg total) by mouth daily for 10 days. 10 tablet 5 025 Hospital, Clinic, or Other Facility Administered Medication Ordered Dose Route Frequency Start Date End Date Status methylPREDNISolone acetate (DEPO-Medrol) injection 60 mgIndications:Wheeze,Bronch itis 60 mg IM Once 12/11/2024 12/11/2024 Ended Active Problems Problem Noted Date Diagnosed Date Lumbar radiculopathy 03/29/2020 Overview (03/30/2020): Added automatically from request for surgery [id number] Encounters Date Type Department Care Team Description 12/11/2024 11:41 AM CDT - 12/11/2024 11:59 PM CDT Hospital Encounter [facility] Diagnostic [facility] [address] [place] [address] Nikki Meyers APRN Discharge Disposition: Home or Self Care (Routine Discharge) 12/11/2024 10:20 AM CDT Office Visit [facility] [address] [phone] Nikki Meyers APRN URI (Cough, drainage, crackling sound in chest 2 weeks) 12/11/2024 Results Follow-Up [facility] [address] [phone] Nikki Meyers APRN XR CHEST PA+LAT 12/11/2024 Travel from Last 3 Months Immunizations Immunization Administration Dates Next Due Influenza (Generic) 04/21/2019,04/28/2013,2011 Tdap (Boostrix) 12/09/2016 Family History Medical History Relation Comments No Known Problems Brother No Known Problems Father No Known Problems Mother No Known Problems Sister Relation Status Comments Brother Alive Daughter Alive Father Alive Mother Alive Sister Alive Social History Tobacco Use Types Packs/Day Years Used Date Smoking Tobacco: Never Smokeless Tobacco: Never Tobacco Cessation:Counseling Given: Not Answered Alcohol Use Standard Drinks/Week Comments Yes 0 (1 standard drink = 0.6 oz pur e alcohol) socially PHQ-2 Answer Date Recorded Patient Health Questionnaire-2 Score 0 12/11/2024 Exercise Vital Sign Answer Date Recorde d On average, how many days pe r week do you engage in moderate to strenuous exercise (like a brisk walk)? 0 days 02/25/2020 On average, how many minutes do you engage in exercise at this level? 0 min 02/25/2020 Education Answer Date Recorded What is the highest level of school you have completed or the highest degree you have received? Associate degree: academic program 02/25/2020 Comments No Sex and Gender Information Value Date Recorded Sex Assigned at Female 12/11/2024 10:23 AM CDT Legal Sex Female 6:32 PM CDT Gender Identity Female 12/11/2024 10:23 AM CDT Sexual Orientation Not on file Occupation Industry Job Start Date Job End Date Not on file Not on file Not on file Not on file Last Filed Vital Signs Vital Sign Reading Time Taken Comments Blood Pressure 121/88 12/11/2024 10:27 AM CDT Pulse 97 12/11/2024 10:27 AM CDT Temperature 36.4 C (97.5 F) 12/11/2024 10:27 AM CDT Respiratory Rate 18 12/11/2024 10:27 AM CDT Oxygen Saturation 97% 12/11/2024 10:27 AM CDT Inhaled Oxygen Concentration - - Weight 108 kg (238 lb) 12/11/2024 10:27 AM CDT Height 172.7 cm (5' 8) 12/11/2024 10:27 AM CDT Body Mass Index 36.19 12/11/2024 10:27 AM CDT Plan of Treatment Health Maintenance Due Date Last Done Comments Annual Physical 02/10/1983 Hepatitis C 02/10/1998 Hepatitis B Vaccines (1 of 3 - 19+ 3-dose series) 02/10/1999 COVID-19 Vaccine ( season) 2024 09/10/2020, 08/19/2020 Mammogram Screening 08/11/2026 08/11/2024, 12/05/2022, 10/10/2021, Additional history exists DTaP, Tdap and Td Vaccines (2 - Td or Tdap) 12/09/2026 12/09/2016 PHQ-2 (Physician [place]) Completed 12/11/2024 HPV Vaccines Aged Out No longer eligi ble based on patient's age to complete this topic Meningococcal B Vaccine Aged Out No l onger eligible based on patient's age to complete this topic Meningococcal Vaccine Aged Out No bea remy eligible based on patient's age to complete this topic Pneumococcal Vaccine: Pediatrics (0 to 5 Years) and At-Risk Patients (6 to 49 Years) Aged Out No longer eligible based on patient's age to complete this topic RSV Immunizations Under 20 Months Aged Out No longer eligible based on patient's age to complete this topic Procedures Procedure Name Priority Date/Time Associated Diagnosis Comments XR CHEST PA+LAT STAT 12/11/2024 12:02 PM CDT Acute cough Wheeze Bronchitis from Last 3 Months Results * XR CHEST PA+LAT (12/11/2024 12:02 PM CDT) Anatomical Region Laterality Modality Chest Radiographic Linda ging 12/11/2024 12:2 7 PM CDT Impressions 12/11/2024 12:28 PM CDT =====IMPRESSION:===== No acute findings. Ordered By: NIKKI MEYERS Interpreted By: Roya Gomez, 12/11/2024 12:27 PM Narrative 12/11/2024 12:28 PM CDT [facility] [address] [place] [address] EXAMINATION: PA AND LATERAL CHEST Exam date/time: 12/11/2024 11:56 AM Reason For Exam: cough, wheezing, lung crackles Comparison: April 30, 2024 Technique: 2 views. Findings: Heart size normal. Proximal airways unremarkable. No suspicious pulmonary lesion, pneumothorax, or pleural effusion. Procedure Note Bruno Gomez MD - 12/11/2024 [facility] [address] [place] [address] EXAMINATION: PA AND LATERAL CHEST Exam date/time: 12/11/2024 11:56 AM Reason For Exam: cough, wheezing, lung crackles Comparison: April 30, 2024 Technique: 2 views. Findings: Heart size normal. Proximal airways unremarkable. No suspiciouspulmonary lesion, pneumothorax, or pleural effusion. =====IMPRESSION:===== No acute findings. Ordered By: NIKKI MEYERS Interpreted By: Roya Gomez, 12/11/2024 12:27 PM Nikki Meyers MAINTENANCE REPRESENTATIVE GENERAL IMAGING Final Resu lt from Last 3 Months Insurance [employer] Care Teams Unmanned Equipment Operator Relationship Specialty Start Date End Date Rachel Macias PA-C [address] [place] [address] PCP - General PHYSICIAN DEALER SALES MANAGER 04/30/24
--- OUTSIDE RECORDS SUMMARY | 2025-01-08 09:42 | XMS_ITS | Encounter Summary ---
Author Organization [facility] Address [address] [place] [address] Care Team Providers Care Butadiene Converter Utility Operator Name Role Phone Rodger Lee MD Primary Care Provider [phone] Encounter Details Date Type Department Care Team (Latest Contact Info) Description 10/15/[address] [facility] Jarett Mcmahon MD [address] [address] Other Specified Complication, Antepartum Social History Tobacco Use Types Packs/Day Years Used Date Smoking Tobacco: Never Assessed Comments Unknown Sex and Gender Information Value Date Recorded Sex Assigned at Not on file Legal Sex Female 4:56 AM LADLE WATCHER Gender Identity Not on file Sexual Orientation Not on file documented as of this encounter Plan of Treatment Upcoming Encounters Date Type Department Care Team (Late st Contact Info) Description 02/10/2025 1:45 PM CDT Office Visit [facility] INFORMATICS SCIENTIST - [address] [address] Jarett Mcmahon MD [address] [address] documented as of this encounter Visit Diagnoses Diagnosis Other specified complication, antepartum(646.83) Other specified complication, antepartum documented in this encounter Care Teams Butadiene Converter Utility Operator Relationship Specialty Start Date End Date Rodger Lee MD [address] [place] [phone] PCP - General Internal Medicine 06/15/16 documented as of this encounter
--- OUTSIDE RECORDS SUMMARY | 2025-01-08 09:42 | XMS_ITS | Clinical Summary ---
Author Organization [facility] on Address [address] [place] [address] Phone Care Team Providers Care Mold Carpenter Name Role Phone Rodger Lee MD Primary Care Provider [phone] Allergies No known active allergies Medications levothyroxine 100 mcg tabletIndications:W ell woman exam with routine gynecological exam,Screening for human papillomavirus (HPV),Vaginal Pap smear,History of cervical cancer,Hx of abnormal cervical Pap smear Take 100 mcg by mouth daily piano tuner. Active FLUoxetine (PROzac) 20 mg capsule 8 [...] for Spasm or Pain. 30 Tablet 1 4 Active Active Problems Problem Noted Date Diagnosed Date Mixed incontinence 09/12/2023 Resolved Problems Problem Noted Date Diagnosed Date Resolved Date History of cervical cancer 06/21/2017 0 08/01/2021 Encounters Date Type Department Care Team Description 01/06/2025 External Device Data STL ABSTRACTION Provider, Abstract 12/09/2024 External Device Data STL ABSTRACTION Provider, Abstract 11/25/2024 External Device Data STL ABSTRACTION Provider, [...] = 0.6 oz pur e alcohol) socially Comments No Sex and Gender Information Value Date Recorded Sex Assigned at Not on file Legal Sex Female 4:56 AM SCRAP CUTTER Gender Identity Not on file Sexual Orientation Not on file Last Filed Vital Signs Vital Sign Reading Time Taken Comments Blood Pressure 134/90 04/14/2024 9:53 AM CDT Pulse 77 08/14/2023 3:26 PM SCRAP CUTTER Temperature 36.6 C (97.8 F) 08/14/2023 3:26 PM SCRAP CUTTER Respiratory Rate 12 08/14/2023 3:26 PM SCRAP CUTTER Oxygen Saturation 93% 08/14/2023 3:26 PM SCRAP CUTTER Inhaled Oxygen Concentration - - Weight 107.5 kg (237 lb) 04/14/2024 9:53 AM CDT Height 172.7 cm (5' 8) 04/14/2024 9:53 AM CDT Body Mass Index 36.04 04/14/2024 9:53 AM CDT Plan of Treatment Upcoming Encounters Date Type Department Care Team (Late st Contact Info) Description 02/10/2025 1:45 PM CDT Office Visit [facility] NEEDLE LOOM OPERATOR HELPER [address] [phone] Jarett Mcmahon MD [address] [facility] [facility] [address] [address] Health Maintenance Due Date Last Done Comments Pre-Diabetes and Diabetes Screening 1980 HPV VACCINES (1 - 3-dose series) 02/10/1995 DTAP/TDAP/TD VACCINES (1 - Tdap) 02/10/1999 HEPATITIS B VACCINES (1 of 3 - 19+ 3-dose series) 02/10/1999 INFLUENZA VACCINE (#1) 2025 4, 03/07/2023, 05/15/2022, Additional history exists BREAST CANCER SCREENING 08/11/2025 08/11/19, 12/05/2022, 10/10/2021, Additional history exists Medical Devices Implanted Type Area Agronomy Teacher Device Identifier Shelf Expiration Date Model / Serial / Lot Barrier Interceed Adh 3x4in [id number] - [id number] Implanted:Qt y: 1 on 08/14/2023 by Yaw Mendez MD at [facility] Adhesion Barrier N/A: Abdomen [employer] [id number] 08/23/2027 [id number] / / [id number] Procedures Procedure Name Priority Date/Time Associated Diagnosis Comments MAMMO 3D SUSHANT SCREEN BILAT W OR WO CAD Routine 08/11/2024 11:28 AM SCRAP CUTTER Breast cancer screening by mammogram from Last 3 Months or Most Recently Relevant to Health Maintenance Results * MAMMO 3D SUSHANT SCREEN BILAT W OR WO CAD (08/11/2024 11:28 AM SCRAP CUTTER) Anatomical Region Laterality Modality Breast Bilateral Mammography 08/11/2024 11:2 8 AM SCRAP CUTTER Impressions 08/11/2024 11:33 AM SCRAP CUTTER IMPRESSION: Negative. RECOMMENDATIONS: Bilateral annual screening mammogram OVERALL FINAL ASSESSMENT: BI-RADS CATEGORY 1 - Negative DICTATION LOCATION: [facility] 08/11/2024 11:33 AM SCRAP CUTTER BILATERAL SCREENING DIGITAL MAMMOGRAMS WITH COMPUTER ASSISTED [...] images were reviewed using the CAD system. Jarett Mcmahon MD MAMMO ORDERABLES Final Re sult from Last 3 Months or Most Recently Relevant to Health Maintenance Insurance [employer] RX Member Subscriber Plan / Payer (Ef fective 2023-Present) Name:Selwyn Dee Relation to Subscriber:Spouse Subscriber ID:Not on file Payer ID:Not on file Type:RX Commercial Address: ANNE [place]IE [place] RX ROWE PLANS (INTERNAL) [facility] Advance Directives For more information, please contact: [phone] * Full Code (Latest Code Status on File) Date Activated Date Inactivated Comments 08/14/2023 12:17 PM 08/14/2023 5:41 PM * Full Code Date Activated Date Inactivated Comments 08/14/2023 9:00 AM 08/14/2023 12:16 PM Care Teams Mold Carpenter Relationship Specialty Start Date End Date Rodger Lee MD [address] [place] [phone] PCP - General Internal Medicine 06/15/16
--- OUTSIDE RECORDS SUMMARY | 2025-01-08 09:42 | XMS_ITS | Encounter Summary ---
Author Organization [facility] Address [address] [place] [address] Care Team Providers Care Multigraph Operator Name Role Phone Rodger Lee MD Primary Care Provider [phone] Encounter Details Date Type Department Care Team (Latest Contact Info) Description 06/19/2005 Outpatient Historical [facility] Renata Andre MD NO ADDRESS ON FILE OTHER CURR COND-ANTEPARTUM (Primary Dx) Social History Tobacco Use Types Packs/Day Years Used Date Smoking Tobacco: Never Assessed Comments Unknown Sex and Gender Information Value Date Recorded Sex Assigned at Not on file Legal Sex Female 4:56 AM JAVASCRIPT ENGINEER Gender Identity Not on file Sexual Orientation Not on file documented as of this encounter Plan of Treatment Upcoming Encounters Date Type Department Care Team (Late st Contact Info) Description 02/10/2025 1:45 PM CDT Office Visit [facility] FACILITY ENGINEER - [address] [address] Jarett Mcmahon MD [address] [address] documented as of this encounter Procedures Procedure Name Priority Date/Time Associated Diagnosis Comments URINALYSIS WITH REFLEX CULTURE Routine 06/19/2005 10:57 PM JAVASCRIPT ENGINEER CBC WITH DIFFERENTIAL Routine 06/19/2005 10:57 PM JAVASCRIPT ENGINEER CBC WITH DIFFERENTIAL Routine 06/19/2005 10:57 PM JAVASCRIPT ENGINEER URINALYSIS W/REFLEX MICROSCOPIC Routine 06/19/2005 10:57 PM JAVASCRIPT ENGINEER URIC ACID Routine 06/19/2005 10:57 PM JAVASCRIPT ENGINEER AST Routine 06/19/2005 10:57 PM JAVASCRIPT ENGINEER LACTATE DEHYDROGENASE Routine 06/19/2005 10:57 PM JAVASCRIPT ENGINEER documented in this encounter Results * (ABNORMAL) URINALYSIS (06/19/2005 10:57 PM JAVASCRIPT ENGINEER) COLOR UA Yellow INTERFACE SYSTEM CLARITY UA [...] /HPF INTERFACE SYSTEM 06/19/2005 10:5 7 PM JAVASCRIPT ENGINEER us Renata Andre MD URINE ORDERABLES Final R esult INTERFACE SYSTEM Refer to clinic/hospital department * URINALYSIS WITH REFLEX CULTURE (06/19/2005 10:57 PM JAVASCRIPT ENGINEER) URINE CULTURE ORDER Culture ordered INTERFACE SYSTEM Comment: Criteria for a reflex culture include one or more of the following: Abn ormal nitrite, leukocyte esterase, WBCs or RBCs. Lack of qualifying criteria does not exclude the possiblity of a urinary tract infection. Dilute urine, drug interference, etc. may decrease the sensitivity of the criteria analytes. 06/19/2005 10:5 7 PM JAVASCRIPT ENGINEER Renata Andre MD URINE ORDERABLES Final R esult Performing Organization Address City/[facility] Co de Phone Number INTERFACE SYSTEM Refer to clinic/hospital department * (ABNORMAL) CBC WITH DIFFERENTIAL (06/19/2005 10:57 PM JAVASCRIPT ENGINEER) NEUTROPHILS 74(H) 45 - 70 % INTERFAC [...] K/uL INTERFACE SYSTEM 06/19/2005 10:5 7 PM JAVASCRIPT ENGINEER Renata Andre MD HEMATOLOGY ORDERABLES Fi nal Result Performing Organization Address [facility] de Phone Number INTERFACE SYSTEM Refer to clinic/hospital department * (ABNORMAL) CBC WITH DIFFERENTIAL (06/19/2005 10:57 PM JAVASCRIPT ENGINEER) WBC 12.3(H) 4.0 - 9.8 K/uL INTERFACE [...] fL INTERFACE SYSTEM 06/19/2005 10:5 7 PM JAVASCRIPT ENGINEER Renata Andre MD HEMATOLOGY ORDERABLES Fi nal Result INTERFACE SYSTEM Refer to clinic/hospital department * AST (06/19/2005 10:57 PM JAVASCRIPT ENGINEER) AST 17 12 - 32 U/L INTERFAC E SYSTEM 06/19/2005 10:5 7 PM JAVASCRIPT ENGINEER us Renata Andre MD CHEMISTRY ORDERABLES Fin al Result Performing Organization Address City/[facility] Co de Phone Number INTERFACE SYSTEM Refer to clinic/hospital department * LACTATE DEHYDROGENASE (06/19/2005 10:57 PM JAVASCRIPT ENGINEER) LD (LACTATE DEHYDROGENASE) 196 135 - 214 U/L INTERFACE SYSTEM 06/19/2005 10:5 7 PM JAVASCRIPT ENGINEER Renata Andre MD CHEMISTRY ORDERABLES Fin al Result Performing Organization Address [place]/[facility] Co de Phone Number INTERFACE SYSTEM Refer to clinic/hospital department * URIC ACID (06/19/2005 10:57 PM JAVASCRIPT ENGINEER) URIC ACID 5.6 2.3 - 6.6 mg/dL INTERFACE SYSTEM 06/19/2005 10:5 7 PM JAVASCRIPT ENGINEER Renata Andre MD CHEMISTRY ORDERABLES Fin al Result Performing Organization Address City/[facility] Co de Phone Number INTERFACE SYSTEM Refer to clinic/hospital department documented in this encounter Visit Diagnoses Diagnosis Other current maternal conditions classifiable elsewhere, antepartum- Primary documented in this encounter Care Teams Multigraph Operator Relationship Specialty Start Date End Date Rodger Lee MD [address] [place] [phone] PCP - General Internal Medicine 06/15/16 documented as of this encounter
--- OUTSIDE RECORDS SUMMARY | 2025-01-08 09:42 | XMS_ITS | Clinical Summary ---
Author Organization [facility] Address [address] [place] [address] Care Team Providers Care Workers Compensation Attorney Name Role Phone Unavailable Primary Care Provider Unavailabl e Source Comments [facility],non-owned Affiliates and Associated Physician Practices is amultiple site organization consisting of ambulatory clinics and hospital sitesin [place], [place], [place] and [place]. This disclosure is being madepursuant to the Care Everywhere program and may not contain all information available regarding this patient. Last updated 18.[facility] Social History Tobacco Use Types Packs/Day Years [...] of 3 - 19+ 3-dose series) 02/10/1999 HPV VACCINE (1 - 3-dose SCDM series) 02/10/2007 COVID-19 VACCINE (2023-2 5 season) 2024 DEPRESSION SCREENING 06/25/2024 INFLUENZA VACCINE (#1) 2025 ZOSTER VACCINE (1 of 2) 02/10/2030 [...]
--- OUTSIDE RECORDS SUMMARY | 2025-01-08 09:42 | XMS_ITS | Encounter Summary ---
Author Organization [facility] Address [address] [place] [address] Care Team Providers Care Water Pump Installer Name Role Phone Unavailable Primary Care Provider Unavailabl e Encounter Details Date Type Department Care Team (Late st Contact Info) Description 11/16/2021 Lab Requisition [facility] [address] [facility] [facility] [address] [place] [phone] Izaiah Richter MD [address] [address] Social History Tobacco Use Types [...] AM CDT) Case Report Dermatopathology Report Case: [id number] Authorizing Provider: Izaiah Richter MD Collected: 11/14/2021 12:00 AM Ordering Location: [facility] Received: 11/16/2021 06:06 AM Pathologist: Romi Ordaz MD Specimen: Skin, right nasal tip 2 2:49 PM CDT DERMATOPATHOLOGY LABORATORY Final Diagnosis Specimen A. SKIN, right nasal tip: ANGIOFIBROMA (FIBROUS PAPULE) (D21.0) (see microscopic description) 2 2:49 PM CDT DERMATOPATHOLOGY LABORATORY at 1449 CDT Clinical History BCCA vs fibrous papule. Path # [id number]. 2 2:49 PM CDT DERMATOPATHOLOGY LABORATORY Gross Description Specimen A: Received is one formalin filled container labeled with the patient's name and designated right nasal tip. The specimen consists of a shave biopsy measuring [id number]. Jar 0. 2:49 PM CDT DERMATOPATHOLOGY LABORATORY [...] characteristic determined by the Dermatopathology Laboratory at [facility], directed by Dr. Kwabena Rubi. These tests need not be, and therefore are not, approved by the [place] Food and Drug Administration. The tests are used for clinical purposes. Billing Codes Specimen Charges Stain Charges 81166 1 2 2:49 PM CDT DERMATOPATHOLOGY LABORATORY Embedded Images 2 2:49 PM CDT DERMATOPATHOLOGY LABORATORY Pathology/Cytolog y TISSUE SPECIMEN FROM SKIN / Unknown 11/14/2021 11/16/2021 6:06 AM CDT us Izaiah Richter MD LAB - PATHOLOGY/CYTOLOGY ORDER SHADY Final Result DERMATOPATHOLOGY LABORATORY [facility] - Department of Dermatology [address] [place] [address], [facility] [phone] documented in this encounter Visit Diagnoses Not on filedocumented in this encounter
--- OUTSIDE RECORDS SUMMARY | 2025-01-08 09:42 | XMS_ITS | Encounter Summary ---
Author Organization [facility] Address 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 [address] documented as of this encounter Procedures Procedure Name Priority Date/Time Associated Diagnosis Comments CBC WITH DIFFERENTIAL Stat 01/12/2009 4:12 AM CDT C-REACTIVE PROTEIN Stat 01/12/2009 4: 12 AM CDT COMPREHENSIVE METABOLIC PANEL Stat 01/12/2009 4:12 AM CDT documented in this encounter Results * CBC WITH DIFFERENTIAL (01/12/2009 4:12 AM CDT) RBC 4.69 3.90 - 4.90 M/uL [facility] MCHC 33.8 31.5 - 35.5 % [facility] MCV 83.2 82.0 - 99.0 fL [facility] PLATELETS 242 140 - 350 K/uL [facility] HEMOGLOBIN 13.2 11.8 - 14.8 g/dL [facility] RDW 13.3 11.5 - 14.5 % [facility] WBC 7.0 4.0 - 9.8 K/uL [facility] MCH 28.1 27.2 - 32.6 pg [facility] MPV 11.6 9.3 - 12.4 fL [facility] HEMATOCRIT 39.0 35.5 - 44.0 % [facility] RDW-STDEV 39.8 37.1 - 48.7 fL [facility] NEUTROPHILS 69 45 - 70 % [facility] NEUTROPHIL ABSOLUTE 4.81 1.90 - 7.00 K/uL [facility] EOSINOPHILS 1 0 - 7 % [facility] EOSINOPHIL ABSOLUTE 0.04 0.00 - 0.70 K/uL [facility] LYMPHOCYTES 25 16 - 45 % [facility] LYMPHOCYTE ABSOLUTE 1.72 0.70 - 4.50 K/uL [facility] BASOPHILS 0 0 - 2 % [facility] BASOPHILS ABSOLUTE 0.03 0.00 - 0.20 K/uL [facility] MONOCYTES 6 3 - 13 % [facility] MONOCYTE ABSOLUTE 0.39 0.10 - 1.30 K/uL [facility] 01/12/2009 4:12 AM CDT 01/12/2009 4:35 AM CDT Gage Monk MD HEMATOLOGY ORDERABLES E dited Performing Organization Address [facility] de Phone Number INTERFACE SYSTEM Refer to clinic/hospital department [facility] CLIA# [id number] [address] [place] [address] * C-REACTIVE PROTEIN (01/12/2009 4:12 AM CDT) CRP 0.7 0.0 - 0.8 mg/dL [facility] 01/12/2009 4:12 AM CDT 01/12/2009 4:35 AM CDT Result [facility] Gage Monk MD CHEMISTRY ORDERABLES Fi nal Result Performing Organization Address [facility] Phone Number INTERFACE SYSTEM Refer to clinic/hospital department [facility] CLIA# [id number] [address] [place] [address] * (ABNORMAL) COMPREHENSIVE METABOLIC PANEL (01/12/2009 4:12 AM CDT) CALCIUM 9.4 8.6 - 10.2 mg/dL [facility] CHLORIDE 100 96 - 108 mmol/L [facility] ALBUMIN 4.6 3.4 - 4.8 g/dL [facility] CREATININE 0.83 0.51 - 0.95 mg/dL [facility] SODIUM 136 135 - 145 mmol/L [facility] ALT 22 0 - 31 U/L [facility] ALKALINE PHOSPHATASE 63 35 - 104 U/L [facility] BILIRUBIN TOTAL 1.1(H) 0.2 - 1.0 mg/dL [facility] CO2 25 22 - 30 mmol/L [facility] TOTAL PROTEIN 8.0 6.3 - 8.6 g/dL [facility] POTASSIUM 3.2(L) 3.5 - 4.9 mmol/L [facility] GLUCOSE 99 65 - 99 mg/dL [facility] AST 19 12 - 32 U/L [facility] BUN 11 6 - 20 mg/dL [facility] GFR, >60 >=60 mL/min/1. 7 sq meter [facility] GFR >60 >=60 mL/min/1. 7 sq meter [facility] Comment: Modification of Diet in Renal Disease (MDRD) study formula. Estimated GFR rate interpretative information for both Americans and non- Americans is available on the [facility] Intranet at: [email or web address] Select: Lab Policies and Procedures Select: Reference Ranges - GFR 01/12/2009 4:12 AM CDT 01/12/2009 4:35 AM CDT us Gage Monk MD CHEMISTRY ORDERABLES Ed ited INTERFACE SYSTEM Refer to clinic/hospital department [facility] CLIA# [id number] [address] [place] [address] documented in this encounter Visit Diagnoses Not on filedocumented in this encounter Care Teams Shuttle Fitting Supervisor Relationship Specialty Start Date End Date Rodger Lee MD [address] [place] [address] [place] [phone] PCP - General Internal Medicine 06/15/16 documented as of this encounter
--- OUTSIDE RECORDS SUMMARY | 2025-01-08 09:42 | XMS_ITS | Encounter Summary ---
Author Organization [facility] Address [address] [place] [address] Care Team Providers Care Structural Iron Erector Name Role Phone Rodger Lee MD Primary Care Provider [phone] Encounter Details Date Type Department Care Team (Late st Contact Info) Description 12/16/2008 Outpatient Historical [facility] Yazan Mcmahon MD 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 [address] documented as of this encounter [...] CDT) CALCIUM 8.6 8.6 - 10.2 mg/dL [facility] CO2 26 22 - 30 mmol/L [facility] CREATININE 0.79 0.51 - 0.95 mg/dL [facility] POTASSIUM 4.0 3.5 - 4.9 mmol/L [facility] BUN 8 6 - 20 mg/dL [facility] CHLORIDE 107 96 - 108 mmol/L [facility] GLUCOSE 97 65 - 99 mg/dL [facility] SODIUM 141 135 - 145 mmol/L [facility] GFR, >60 >=60 mL/min/1.7 sq meter [facility] GFR >60 >=60 mL/min/1.7 sq meter [facility] Comment: Modification of Diet in Renal Disease (MDRD) study formula. Estimated GFR rate interpretative information for both Americans and non- Americans is available on the [facility] Intranet at: [email or web address] Select: Lab Policies and Procedures Select: Reference Ranges - GFR 01/13/2009 5:58 AM CDT 01/13/2009 6:17 AM CDT Yazan Mcmahon MD CHEMISTRY ORDERABLES Edit ed INTERFACE SYSTEM Refer to clinic/hospital department [facility] CLIA# [id number] [address] [place] [address] * (ABNORMAL) CBC WITH DIFFERENTIAL (01/13/2009 5:58 AM CDT) MCV 86.8 82.0 - 99.0 fL [facility] PLATELETS 229 140 - 350 K/uL [facility] HEMOGLOBIN 10.5(L) 11.8 - 14.8 g/dL [facility] RDW 13.6 11.5 - 14.5 % [facility] WBC 9.1 4.0 - 9.8 K/uL [facility] MCH 27.7 27.2 - 32.6 pg [facility] MPV 11.8 9.3 - 12.4 fL [facility] HEMATOCRIT 32.9(L) 35.5 - 44.0 % [facility] RDW-STDEV 43.0 37.1 - 48.7 fL [facility] RBC 3.79(L) 3.90 - 4.90 M/uL [facility] MCHC 31.9 31.5 - 35.5 % [facility] EOSINOPHILS 0 0 - 7 % [facility] EOSINOPHIL ABSOLUTE 0.00 0.00 - 0.70 K/uL [facility] LYMPHOCYTES 13(L) 16 - 45 % [facility] LYMPHOCYTE ABSOLUTE 1.20 0.70 - 4.50 K/uL [facility] BASOPHILS 0 0 - 2 % [facility] BASOPHILS ABSOLUTE 0.01 0.00 - 0.20 K/uL [facility] MONOCYTES 8 3 - 13 % [facility] MONOCYTE ABSOLUTE 0.75 0.10 - 1.30 K/uL [facility] NEUTROPHILS 79(H) 45 - 70 % [facility] NEUTROPHIL ABSOLUTE 7.17(H) 1.90 - 7.00 K/uL [facility] 01/13/2009 5:58 AM CDT 01/13/2009 6:17 AM CDT us Yazan Mcmahon MD HEMATOLOGY ORDERABLES Israel bryan INTERFACE SYSTEM Refer to clinic/hospital department [facility] CLIA# [id number] [address] [place] [address] * CYTOLOGY, NON GYNE (01/12/2009 10:35 AM CDT) PATHOLOGY/CYT OLOGY REPORT [address] [address] Patient: SELWYN DEE : 1980 Procedure Date: 01/12/2009 Accession Date: 01/12/2009 Case No: [id number] Ordering Dr: YAZAN GALVAN Case type SW is performed by [place], [place]; all other case types are performed by [facility], [place], [place] SURGICAL PATHOLOGY & NON-GYNECOLOGIC CYTOPATHOLOGY REPORT DIAGNOSIS: ABDOMINAL CAVITY, PELVIC WASHINGS, CYTOLOGY AND CELL BLOCK: - NO ATYPICAL CELLS SEEN. Specimen Description: Pelvic washings. Operative Procedure: Pelvic washings. Patient Information/Histor y/Diagnosis: Focal endocervical adenocarcinoma in situ. Gross: Received is 33 mL of red fluid. A ThinPrep and a cell block are prepared. [facility] 01.13.2009 06:03 am Microscopic: The ThinPrep and cell block sections contain only a few scattered mesothelial cells and histiocytes mixed with blood. No definite malignant cells are identified. [facility] 01.13.2009 06:03 am Staging Form: No. ELECTRONIC SIGNATURE FOR LEN BERRIOS M.D.- 01/13/09 10:15 am INTERFACE SYSTEM 01/12/2009 10:3 5 AM CDT us Yazan Mcmahon MD PATHOLOGY/CYTOLOGY ORDERA BLES Final Result INTERFACE SYSTEM Refer to clinic/hospital department * PATHOLOGY (01/12/2009 10:31 AM CDT) FINAL REPORT [address] [address] Patient: SELWYN DEE : 1980 Procedure Date: 01/12/2009 Accession Date: 01/12/2009 Case No: [id number] Ordering Dr: YAZAN GALVAN Case type SW is performed by [place]; all other case types are performed by [facility], [place], [place] SURGICAL PATHOLOGY & NON-GYNECOLOGIC CYTOPATHOLOGY REPORT [...] 1.8-cm thick myometrium is pink-belcher and unremarkable. Apparel Patternmaker sections are submitted as follows: L9-B6-zifwkawooqtb canal from 12-3 o'clock; O0-E3-xturmlidvnwr canal from 3-6 o'clock; T8-Z3-vjmtlpnkyaxv canal from 6-9 o'clock; U32-G80-hhmqrxzmsx al canal from 9-12 o'clock; A13- anterior endomyometrium; T46-xqnlilgkz endomyometrium. [facility] 01.12.2009 08:04 pm Microscopic: Received are slides labeled [id number], Selwyn Dee. Sections of uterine cervix identify [...] URINE (01/12/2009 6:31 AM CDT) CLIA LICENSE [id number] INTERF ARCHIE SYSTEM , URINE POC Negative Negative INTERFACE SYSTEM 01/12/2009 6:31 AM CDT 01/12/2009 6:31 AM CDT Yazan Mcmahon MD POINT OF CARE TESTING Fin al Result INTERFACE SYSTEM Refer to clinic/hospital department * (ABNORMAL) BASIC METABOLIC PANEL (01/08/2009 2:49 PM CDT) SODIUM 139 135 - 145 mmol/L [facility] CO2 25 22 - 30 mmol/L [facility] CALCIUM 9.9 8.6 - 10.2 mg/dL [facility] CREATININE 0.93 0.51 - 0.95 mg/dL [facility] POTASSIUM 3.7 3.5 - 4.9 mmol/L [facility] BUN 14 6 - 20 mg/dL [facility] CHLORIDE 103 96 - 108 mmol/L [facility] GLUCOSE 61(L) 65 - 99 mg/dL [facility] GFR, >60 >=60 mL/min/1.7 sq meter [facility] GFR >60 >=60 mL/min/1.7 sq meter [facility] Comment: Modification of Diet in Renal Disease (MDRD) study formula. Estimated GFR rate interpretative information for both Americans and non- Americans is available on the [facility] Intranet at: [email or web address] Select: Lab Policies and Procedures Select: Reference Ranges - GFR 01/08/2009 2:49 PM CDT 01/08/2009 4:36 PM CDT Yazan Mcmahon MD CHEMISTRY ORDERABLES Edit ed INTERFACE SYSTEM Refer to clinic/hospital department [facility] CLIA# [id number] [address] [place] [address] * CBC WITH DIFFERENTIAL (01/08/2009 2:49 PM CDT) HEMOGLOBIN 13.1 11.8 - 14.8 g/dL [facility] RDW 13.4 11.5 - 14.5 % [facility] WBC 6.4 4.0 - 9.8 K/uL [facility] MCH 28.4 27.2 - 32.6 pg [facility] MPV 12.3 9.3 - 12.4 fL [facility] HEMATOCRIT 38.9 35.5 - 44.0 % [facility] RDW-STDEV 40.7 37.1 - 48.7 fL [facility] RBC 4.62 3.90 - 4.90 M/uL [facility] MCHC 33.7 31.5 - 35.5 % [facility] MCV 84.2 82.0 - 99.0 fL [facility] PLATELETS 269 140 - 350 K/uL [facility] MONOCYTES 5 3 - 13 % [facility] MONOCYTE ABSOLUTE 0.30 0.10 - 1.30 K/uL [facility] NEUTROPHIL ABSOLUTE 3.63 1.90 - 7.00 K/uL [facility] EOSINOPHILS 1 0 - 7 % [facility] EOSINOPHIL ABSOLUTE 0.07 0.00 - 0.70 K/uL [facility] LYMPHOCYTES 37 16 - 45 % [facility] LYMPHOCYTE ABSOLUTE 2.40 0.70 - 4.50 K/uL [facility] NEUTROPHILS 57 45 - 70 % [facility] BASOPHILS 0 0 - 2 % [facility] BASOPHILS ABSOLUTE 0.02 0.00 - 0.20 K/uL [facility] 01/08/2009 2:49 PM CDT 01/08/2009 4:36 PM CDT Yazan Mcmahon MD HEMATOLOGY ORDERABLES Israel bryan Performing Organization Address City/[facility] de Phone Number INTERFACE SYSTEM Refer to clinic/hospital department [facility] CLIA# [id number] [address] [place] [address] * TYPE AND SCREEN (01/08/2009 2:45 PM CDT) SPECIMEN LIFE 3 days from OR date [facility] HISTORY CHECK History Checked [facility] ABO/RH TYPE O Positive [facility] ANTIBODY SCREEN Negative [facility] 01/08/2009 2:45 PM CDT Result [facility] Yazan Mcmahon MD BLOOD BANK ORDERABLES Israel bryan Performing Organization Address [facility] de Phone Number INTERFACE SYSTEM Refer to clinic/hospital department [facility] CLIA# [id number] [address] [place] [address] documented in this encounter Visit Diagnoses Not on filedocumented in this encounter Care Teams Structural Iron Erector Relationship Specialty Start Date End Date Rodger Lee MD [address] [place] [phone] PCP - General Internal Medicine 06/15/16 documented as of this encounter
--- OUTSIDE RECORDS SUMMARY | 2025-01-08 09:42 | XMS_ITS | Encounter Summary ---
Author Organization [facility] Address [address] [place] [address] Care Team Providers Care Patient Access Specialist Name Role Phone Rodger Lee MD Primary Care Provider [phone] Encounter Details Date Type Department Care Team (Latest Contact Info) Description 08/12/2008 Outpatient Historical [facility] Jarett Mcmahon MD 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 SOLO MUSICIAN [address] [address] Jarett Mcmahon MD [address] [address] documented as of this encounter Procedures Procedure Name Priority Date/Time Associated Diagnosis Comments US BIOPHYSICAL PROF W NST Timed Study 09/08/2008 11:26 AM CDT US OB LTD 1 OR MORE FETUSES Timed Study 09/08/2008 11:26 AM CDT US OB LTD 1 OR MORE FETUSES Timed Study 08/12/2008 10:24 AM SOLAR PHOTOVOLTAIC ELECTRICIAN documented in this encounter Results * US [...] 1 OR MORE FETUSES (08/12/2008 10:24 AM SOLAR PHOTOVOLTAIC ELECTRICIAN) Anatomical Region Laterality Modality Pelvis Other Narrative 08/12/2008 10:24 AM SOLAR PHOTOVOLTAIC ELECTRICIAN Results in [employer] Procedure Note 12/31/2008 Results in [employer] us Jarett Mcmahon MD US ORDERABLES Final Res ult documented in this encounter Visit Diagnoses Diagnosis Other specified complication, antepartum(646.83) Other specified complication, antepartum Unspecified hypothyroidism documented in this encounter Care Teams Patient Access Specialist Relationship Specialty Start Date End Date Rodger Lee MD [address] [place] [phone] PCP - General Internal Medicine 06/15/16 documented as of this encounter
--- OUTSIDE RECORDS SUMMARY | 2025-01-08 09:42 | XMS_ITS | Encounter Summary ---
Author Organization [facility] Address [address] [place] [address] Care Team Providers Care Privacy Attorney Name Role Phone Rodger Lee MD Primary Care Provider [phone] Encounter Details Date Type Department Care Team (Latest Contact Info) Description 09/13/2008 Outpatient Historical [facility] Jarett Mcmahon MD [address] [address] Other Specified Complication, Antepartum Social History Tobacco Use Types Packs/Day Years Used Date Smoking Tobacco: Never Assessed Comments Unknown Sex and Gender Information Value Date Recorded Sex Assigned at Not on file Legal Sex Female 4:56 AM FISCAL SERVICES DIRECTOR Gender Identity Not on file Sexual Orientation Not on file documented as of this encounter Plan of Treatment Upcoming Encounters Date Type Department Care Team (Late st Contact Info) Description 02/10/2025 1:45 PM CDT Office Visit [facility] MEDICAL SECRETARY [address] [address] Jarett Mcmahon MD [address] [address] documented as of this encounter [...] antepartum documented in this encounter Care Teams Privacy Attorney Relationship Specialty Start Date End Date Rodger Lee MD [address] [place] [phone] PCP - General Internal Medicine 06/15/16 documented as of this encounter
--- OUTSIDE RECORDS SUMMARY | 2025-01-08 09:42 | XMS_ITS | Encounter Summary ---
Author Organization [facility] Address [address] [place] [address] Care Team Providers Care Forest Fire Specialist Supervisor Name Role Phone Rodger Lee MD Primary Care Provider [phone] Encounter Details Date Type Department Care Team (Late st Contact Info) Description 01/06/2025 External Device Data [place] ABSTRACTION Provider, Abstract NO ADDRESS ON FILE Social History Tobacco Use Types Packs/Day Years Used Date Smoking Tobacco: Never Smokeless Tobacco: Never Alcohol Use Standard Drinks/Week Comments Yes 0 (1 standard drink = 0.6 oz pur e alcohol) socially Comments No Sex and Gender Information Value Date Recorded Sex Assigned at Not on file Legal Sex Female 4:56 AM HARDWOOD FLOOR INSTALLATION HELPER Gender Identity Not on file Sexual Orientation Not on file documented as of this encounter Plan of Treatment Upcoming Encounters Date Type Department Care Team (Late st Contact Info) Description 02/10/2025 1:45 PM CDT Office Visit [facility] NUTRITION REPRESENTATIVE [address] [address] Jarett Mcmahon MD [address] [address] documented as of this encounter Visit Diagnoses Not on filedocumented in this encounter Care Teams Forest Fire Specialist Supervisor Relationship Specialty Start Date End Date Rodger Lee MD [id number] [address] [place] [phone] PCP - General Internal Medicine 06/15/16 documented as of this encounter
--- OUTSIDE RECORDS SUMMARY | 2025-01-08 09:42 | XMS_ITS | Encounter Summary ---
Author Organization [facility] Address [address] [place] [address] Care Team Providers Care Silviculture Professor Name Role Phone Rodger Lee MD Primary Care Provider Encounter Details Date Type Department Care Team (Late st Contact Info) Description 11/23/2008 Outpatient Historical [facility] Yazan Mcmahon MD [address] [address] Social History Tobacco Use Types Packs/Day Years Used Date Smoking Tobacco: Never Assessed Comments Unknown Sex and Gender Information Value Date Recorded Sex Assigned at Not on file Legal Sex Female 4:56 AM GENERAL PRODUCTION MANAGER Gender Identity Not on file Sexual Orientation Not on file documented as of this encounter Plan of Treatment Upcoming Encounters Date Type Department Care Team (Late st Contact Info) Description 02/10/2025 1:45 PM CDT Office Visit [facility] SW[employer] FOLDER [address] [id number] Yazan Mcmahon MD [address] [address] documented as of this encounter Procedures Procedure Name Priority Date/Time Associated Diagnosis Comments PATHOLOGY Routine 11/24/2008 11:21 AM CDT POC , URINE Routine 11/24/2008 9:20 AM CDT HEMOGLOBIN AND HEMATOCRIT Stat 11/24/2008 8:32 AM CDT documented in this encounter Results * PATHOLOGY (11/24/2008 11:21 AM CDT) FINAL REPORT [facility] [address], [place] [address] Patient: SELWYN DEE : 1980 Procedure Date: 11/24/2008 Accession Date: 11/24/2008 Case No: [id number] Ordering Dr: YAZAN GALVAN Case types AW, BW, FW, NW and SH are performed by [facility], [place], [place] SURGICAL PATHOLOGY & NON-GYNECOLOGIC CYTOPATHOLOGY REPORT [...] 04:08 pm Microscopic: The slides are labeled [id number] and Selwyn Dee. The cervical conization includes [...] ORDERA BLES Final Result Performing Organization Address [facility] de Phone Number INTERFACE SYSTEM Refer to clinic/hospital department * POC , URINE (11/24/2008 9:20 AM CDT) , URINE POC Negative Negative [facility] 11/24/2008 9:20 AM CDT 11/24/2008 9:20 AM CDT us Yazan Mcmahon MD POINT OF CARE TESTING Fin al Result Performing Organization Address [facility] Co de Phone Number INTERFACE SYSTEM Refer to clinic/hospital department [facility] CLIA# [id number] [address] [facility] [address] * HEMOGLOBIN AND HEMATOCRIT (11/24/2008 8:32 AM CDT) HEMOGLOBIN 12.6 11.8 - 14.8 g/dL [facility] HEMATOCRIT 38.5 35.5 - 44.0 % [facility] 11/24/2008 8:32 AM CDT 11/24/2008 9:21 AM CDT Narrative INTERFACE SYSTEM - 11/24/2008 9:30 AM CDT RM 12 us Yazan Mcmahon MD HEMATOLOGY ORDERABLES Fin al Result INTERFACE SYSTEM Refer to clinic/hospital department [facility] CLIA# [id number] [address] [place] [address] documented in this encounter Visit Diagnoses Not on filedocumented in this encounter Care Teams Silviculture Professor Relationship Specialty Start Date End Date Rodger Lee MD [address] [place] [phone] PCP - General Internal Medicine 06/15/16 documented as of this encounter
--- OUTSIDE RECORDS SUMMARY | 2025-01-08 09:42 | XMS_ITS | Encounter Summary ---
Author Organization [facility] Address 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 [address] documented as of this encounter [...] No growth to date. Culture in progress [facility] FINAL REPORT No growth 5 days [facility] Blood specimen (specimen) 01/16/2009 8:10 PM CDT 01/16/2009 8:15 PM CDT Narrative [facility] - 01/22/2009 12:02 PM CDT blood inlab Miki Sheffield MD MICROBIOLOGY - GENERAL ORDERABL ES Final Result [facility] CLIA# [id number] [address] [place] [address] * BLOOD CULTURE (01/16/2009 8:10 PM CDT) PRELIMINARY REPORT No growth to date. Culture in progress [facility] FINAL REPORT No growth 5 days [facility] Blood specimen (specimen) 01/16/2009 8:10 PM CDT 01/16/2009 8:15 PM CDT us Miki Sheffield MD MICROBIOLOGY - GENERAL ORDERABL ES Final Result [facility] CLIA# [id number] [address] [place] [address] * XR CHEST PA AND LATERAL (01/16/2009 8:10 PM CDT) Anatomical Region Laterality Modality Chest Other 01/16/2009 8:10 PM CDT Narrative 01/16/2009 9:22 PM CDT [facility] [address] [place], [place] [address] Admit Date: 01/16/2009 SELWYN DEE Sex: F Admit Prov: ER, AUTHORIZED P Date: 1980 Primary Care Prov: RODGRE CROFT Norman CMRN: [id number] [facility] N: [id number] IMAGING SERVICES Ordering Prov: N/A Accession Number: [id number] Interpretation TWO-VIEW CHEST, 01/16/2009 HISTORY: Fever, postoperative. FINDINGS: There are no comparison films. The lungs are fully inflated and clear. There are no effusions. The heart and mediastinum are within normal limits. IMPRESSION: Negative heart and lungs. . Dictated by: PRATIMA ORMERO 01/16/2009 20:19 Electronically signed by: PRATIMA ROMERO 01/16/2009 21:21 Transcribed: 01/16/2009 20:22 SJ Procedure Note Pratima Romero - 01/16/2009 [facility] [address] [place], [place] [address] Admit Date: 01/16/2009 SELWYN DEE Sex: F Admit Prov: ER, AUTHORIZED P Date: 1980 Primary Care Prov: RODGRE CROFT Norman CMRN: [id number] Room: ER-A SSN: [id number] IMAGING SERVICES Ordering Prov: N/A Interpretation TWO-VIEW [...] PM CDT FINAL - Order Information Only [address] [address] Admit Date: 01/16/2009 SELWYN DEE Sex: F Admit Prov: ER, AUTHORIZED P Date: 1980 Primary Care Prov: RODGER CROFT CMRN: [id number] Room: ER-A SSN: [id number] IMAGING SERVICES Ordering Prov: N/A Accession Number: [id number] Interpretation TWO-VIEW CHEST, 01/16/2009 HISTORY: Fever, postoperative. FINDINGS: There are no comparison films. The lungs are fully inflated and clear. There are no effusions. The heart and mediastinum are within normal limits. Procedure Note Frank Delgado RN - 07/13/2015 FINAL - Order Information Only [address] [place] [address] Admit Date: 01/16/2009 SELWYN DEE Sex: F Admit Prov: ER, AUTHORIZED P Date: 1980 Primary Care Prov: RODGER CROFT CMRN: [id number] Room: [facility] SSN: [id number] IMAGING SERVICES Ordering Prov: N/A Interpretation TWO-VIEW [...] CDT) CRP 3.1(H) 0.0 - 0.8 mg/dL [facility] 01/16/2009 7:29 PM CDT 01/16/2009 8:18 PM CDT Narrative [facility] - 01/16/2009 8:44 PM CDT blood in lab Miki Sheffield MD CHEMISTRY ORDERABLES Final Resu lt [facility] CLIA# [id number] [address] [place] [place] [address] * COMPREHENSIVE METABOLIC PANEL (01/16/2009 7:29 PM CDT) CALCIUM 9.1 8.6 - 10.2 mg/dL [facility] ALBUMIN 4.3 3.4 - 4.8 g/dL [facility] CHLORIDE 103 96 - 108 mmol/L [facility] CREATININE 0.83 0.51 - 0.95 mg/dL [facility] ALT 20 0 - 31 U/L [facility] SODIUM 141 135 - 145 mmol/L [facility] ALKALINE PHOSPHATASE 57 35 - 104 U/L [facility] CO2 27 22 - 30 mmol/L [facility] BILIRUBIN TOTAL 0.5 0.2 - 1.0 mg/dL [facility] POTASSIUM 4.0 3.5 - 4.9 mmol/L [facility] TOTAL PROTEIN 7.6 6.3 - 8.6 g/dL [facility] GLUCOSE 87 65 - 99 mg/dL [facility] AST 19 12 - 32 U/L [facility] BUN 10 6 - 20 mg/dL [facility] GFR, >60 >=60 mL/min/1.7 sq meter [facility] GFR >60 >=60 mL/min/1.7 sq meter [facility] Comment: Modification of Diet in Renal Disease (MDRD) study formula. Estimated GFR rate interpretative information for both Americans and non- Americans is available on the [facility] Intranet at: [email or web address] Select: Lab Policies and Procedures Select: Reference Ranges - GFR 01/16/2009 7:29 PM CDT 01/16/2009 7:47 PM CDT us Miki Sheffield MD CHEMISTRY ORDERABLES Edited [facility] CLIA# [id number] [address] [facility] [place] [address] * (ABNORMAL) CBC WITH DIFFERENTIAL (01/16/2009 7:29 PM CDT) WBC 7.1 4.0 - 9.8 K/uL [facility] MCH 28.3 27.2 - 32.6 pg [facility] MPV 11.4 9.3 - 12.4 fL [facility] HEMATOCRIT 33.7(L) 35.5 - 44.0 % [facility] RDW-STDEV 39.9 37.1 - 48.7 fL [facility] RBC 4.00 3.90 - 4.90 M/uL [facility] MCHC 33.5 31.5 - 35.5 % [facility] MCV 84.3 82.0 - 99.0 fL [facility] PLATELETS 237 140 - 350 K/uL [facility] HEMOGLOBIN 11.3(L) 11.8 - 14.8 g/dL [facility] RDW 13.2 11.5 - 14.5 % [facility] LYMPHOCYTES 25 16 - 45 % [facility] LYMPHOCYTE ABSOLUTE 1.81 0.70 - 4.50 K/uL [facility] BASOPHILS 0 0 - 2 % [facility] BASOPHILS ABSOLUTE 0.02 0.00 - 0.20 K/uL [facility] MONOCYTES 5 3 - 13 % [facility] MONOCYTE ABSOLUTE 0.33 0.10 - 1.30 K/uL [facility] NEUTROPHILS 68 45 - 70 % [facility] NEUTROPHIL ABSOLUTE 4.84 1.90 - 7.00 K/uL [facility] EOSINOPHILS 2 0 - 7 % [facility] EOSINOPHIL ABSOLUTE 0.13 0.00 - 0.70 K/uL [facility] 01/16/2009 7:29 PM CDT 01/16/2009 7:47 PM CDT Miki Sheffield MD HEMATOLOGY ORDERABLES Edited Performing Organization Address City/[facility]/ZIP Co de Phone Number [facility] CLIA# [id number] [address] [place] [address] * ED HOLD (01/16/2009 7:29 PM CDT) SPECIMEN HOLD, BLOOD 7 days [facility] Blood specimen (specimen) 01/16/2009 7:29 PM CDT 01/16/2009 7:47 PM CDT us Miki Sheffield MD CHEMISTRY ORDERABLES Final Resu lt Performing Organization Address City/[facility]/ZIP Co de Phone Number [facility] CLIA# [id number] [address] [place] [address] documented in this encounter Visit Diagnoses Not on filedocumented in this encounter Care Teams Assembler Dc Field Ring Relationship Specialty Start Date End Date Rodger Croft MD [address] [place] [phone] PCP - General Internal Medicine 06/15/16 documented as of this encounter
[2025-01-08 09:47] VITALS: BP 127/76; PULSE 83; RESP 18; TEMP 36.6; O2SAT 99
--- NOTE | 2025-01-08 09:47 | ED_ITS ---
HPI - Back Pain/Injury General Chief Complaint: Back Pain/Injury Stated Complaint: Back Pain Time Seen by Provider: 01/08/25 09:47 Source: patient Mode of arrival: ambulatory Limitations: no limitations History of Present Illness HPI Narrative: 44-year-old female presented complaint mid low back pain. Onset yesterday. 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 Rates pain 02/01. Took ibuprofen 800mg and alternating with Tylenol, and used Theraworx. Denies pain radiating into the hips or legs, numbness, tingling, weakness of the lower extremities, or change in gait, saddle paresthesia or loss of bowel or bladder. Related Data Home Medications ?Medication ?Instructions ?Recorded ?Confirmed ?Last Taken ?Type alprazolam 0.5 mg tablet (Xanax) 0.5 mg PO QID 03/09/22 10/29/24 Unknown History multivitamin (Daily Multi-Vitamin 1 tablet PO DAILY 03/09/22 10/29/24 Unknown History tablet) zolpidem 10 mg tablet 10 mg PO QHS PRN Insomnia 03/09/22 10/29/24 Unknown History brexpiprazole 1 mg tablet (Rexulti) 1 mg PO DAILY 03/24/24 10/29/24 Unknown History fluoxetine 40 mg capsule 40 mg PO DAILY 08/18/24 10/29/24 Unknown History Allergies Allergy/AdvReac Type Severity Reaction Status Date / Time cephalexin (From Keflex) AdvReac Intermediate Diarrhea Verified 12/07/24 14:04 tramadol AdvReac Intermediate Gastrointestinal Verified 12/07/24 14:04 Upset trazodone AdvReac Intermediate Nausea Verified 12/07/24 14:04 Review of Systems Review of Systems: CONSTITUTIONAL: Denies body aches, fever, chills EYES: Denies visual changes CARDIOVASCULAR: Denies chest pain, palpitations, or edema. RESPIRATORY: Denies cough or dyspnea. GASTROINTESTINAL: Denies abdominal pain, nausea, vomiting, or diarrhea. SKIN: Denies rash, itching, or wounds. MUSCULOSKELETAL: reports back pain NEUROLOGIC: Denies headache, numbness, tingling, or weakness. All systems reviewed & are unremarkable except as noted in HPI and below PMFSH Past Medical History Medical History delivery delivered Thyroid disorder Anxiety Surgical History Surgical History H/O: hysterectomy H/O cone biopsy of cervix H/O discectomy Family History Family History Mother Thyroid disorder Grandparent Heart disease Social History Social History Social History: 10/29/24 patient declined SDOH Smoking status: Never smoker Alcohol intake: never Substance use: never Do You Feel Safe in your Home?: Yes Lack of Transportation: No Lack of Food: Never True Current Housing: I Have Housing Concerned About Future Housing: No Difficulty Paying Gas/Electric Bills: No Difficulty Paying for Meds: No Currently Unemployed: No Education: Associate Degree Difficulty w/ Childcare or Family Care: No Living arrangements: with family 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 Please see nursing chart for further information. There is no relevant family history pertinent to the presenting complaint Exam Narrative: GENERAL: Well-appearing NECK: Supple. full ROM CHEST: Speaks in full sentences. No respiratory distress. HEART: Regular rate and rhythm. Normal and equal peripheral pulses. MUSC: Paraspinal lumbar tenderness with palpation, worse on left. Guarding movements No Vertebral point tenderness. BLEs with normal strength and sensation, normal range of motion. No ecchymosis, pulse palpable and equal bilaterally, skin warm, dry, pink. Capillary refill less than 3 seconds. Gait steady. SKIN: Warm, dry, no rash. NEURO: Alert and oriented x3. Course Course Emergency Course: Patient is aware of diagnosis, understands and agrees to treatment plan. Anti cipatory guidance given. Patient agrees to follow-up as directed and is aware of reasons to seek care at the emergency department. Portions of this record may have been created with voice recognition software Level of Care: Express Care Visit Vital Signs Vital signs: Reviewed MDM - Back Pain/Injury MDM Narrative Medical decision making narrative: Discussed physical exam findings. Most consistent with muscle strain. Shared decision making, patient is agreeable to try anti-inflammatory and muscle relaxer, imaging deferred at this time. Advised supportive measures and s/s to go to the ER. Pt is stable and appropriate for outpt treatment and follow up with pcp. Differential Diagnosis Differential diagnosis: Likely lumbar radiculopathy, sciatica, strain of lumbar region, renal colic, pyelonephritis and discitis Discharge Plan Discharge Clinical Impression: Back strain Patient Disposition: Home Condition: Stable Instructions: Antibiotic Form, Back Pain (ED) Additional Instructions: Avoid lifting. pushing. pulling, or anything that worsens the pain. Walking and other gentle exercising several times a week has been shown to improve back pain; bed rest is not recommended. Take Motrin 800mg every 8 hours with food for the next 2-3 days, along with Tylenol 1000mg every 8 hours Take muscle relaxers every 8 hours as needed for muscle spasm- do not drive or make any important decisions while on this medication for it can make you drowsy. Over the counter pain cream like icy/hot or biofreeze, or Salon pas/lidocaine 4% patch. You may apply heat or cold to the area as needed. Go to the ER immediately If you experience any worsening pain, swelling, numbness, weakness, problems with bladder or bowel function, weakness or loss of feeling in one or both of your legs, or any other serious concerns. Please follow up with your Primary Care Doctor - call for an appointment. Patient Language: Latvian Prescriptions: New cyclobenzaprine 10 mg tablet 10 mg PO TID PRN (Reason: muscle spasm) Qty: 10 0RF ibuprofen 800 mg tablet 800 mg PO TID PRN (Reason: pain) Qty: 15 0RF No Action Rexulti 1 mg tablet 1 mg PO DAILY methylprednisolone 4 mg tablets,dose pack See Rx Instructions .ROUTE .COMPLEX Qty: 21 0RF Rx Instructions: for 6 days pseudoephedrine HCl [12 Hour Decongestant] 120 mg tablet extended release 120 mg PO Q12H PRN (Reason: nasal congestion) Qty: 20 0RF promethazine-DM 6.25-15 mg/5 mL syrup 5 ml PO Q4-6H PRN (Reason: cough) Qty: 120 0RF doxycycline monohydrate 100 mg tablet 100 mg PO BID 7 Days Qty: 14 0RF ipratropium bromide 21 mcg (0.03 %) spray,non-aerosol 2 spray NASAL TID PRN (Reason: nasal drainage) Qty: 30 0RF Rx Instructions: administer into each nostril zolpidem 10 mg tablet 10 mg PO QHS PRN (Reason: Insomnia) alprazolam [Xanax] 0.5 mg tablet 0.5 mg PO QID multivitamin [Daily Multi-Vitamin] Tablet 1 tablet PO DAILY fluoxetine 40 mg capsule 40 mg PO DAILY omeprazole 20 mg capsule,delayed release(DR/EC) 20 mg PO DAILY Qty: 90 1RF levothyroxine 100 mcg tablet See Rx Instructions .ROUTE .COMPLEX Qty: 90 1RF Dose Instruction: Take 1 tablet by mouth once daily Rx Instructions: Take 1 tablet by mouth once daily Follow-up/Referrals: Amee Toth, [facility] [Primary Care Provider] - Stand Alone Forms: Work/School Release IP Time of Disposition: 09:57
== END 2025-01-08 10:07 | disposition home or self-care (01) ==
PROVIDERS: Emergency Provider Nurse Practitioner Family; PCP Nurse Practitioner Family
DX: S39.012A Strain of muscle, fascia and tendon of lower back, initial encounter (principal); W18.39XA Other fall on same level, initial encounter
CPT/HCPCS: 99213; G0463